=== PATIENT | male | born 1935 | race Caucasian/White ===

== ENCOUNTER 2016-10-15 17:16 | Observation (INO) | payer MEDICARE, BC ==
[~2016-10-15] VITALS: Ht 172.7 cm; Wt 96.4 kg
--- NOTE | ~2016-10-15 | HEMODYNAMI ---
PATIENT:DENTON ZUÑIGA MEDICAL RECORD: [id number] : 31 LOCATION:[facility] [address] [id number] ADMISSION DATE: 10/15/16 Generatedon:10/16/201610:19 Patient name: DENTON ZUÑIGA Patient #: [id number] SSN: : 1935 Date of study: 10/16/2016 Page: Of Hemodynamic Procedure Report Patient Data Patient Demographics Procedure consent was obtained First Name: DENTON Gender: Male Last Name: YOGESH : 1935 [facility] Initial: E Age: 80 year(s) Patient #: [id number] Race: Additional ID: [id number] Contact details Address: [address] [place] [address] [facility] State: [place] City: [place] Zip code: [address] Past Medical History History of disease Date Diagnosis Comments CAD Allergies Allergen Reaction Date Comments Reported Penicillins 08/16/2014 Penicillins 10/16/2016 Admission Admission Data Admission Date: 10/15/2016 Admission Time: 20:42 Arrival Date: 10/15/2016 Arrival Time: 20:42 Admit Source: Other Insurance Payor: Medicare Room #: D.[id number] Lab Results Lab Result Date: 10/15/2016 Lab Result Time: 0:00 Biochemistry Name Units Result Min Max Creatinine mg/dl 0.8 --(-*--)-- 0.6 1.3 CBC Name Units Result Min Max Hemoglobin g/dl 13.3 -*(----)-- 13.5 17.5 Procedure Procedure Types Cath Procedure Diagnostic Procedure LHC LHC w/Coronaries Miscellaneous Procedures Moderate Sedation up to 30 minutes Procedure Description Procedure Date Procedure Date: 10/16/2016 Procedure Start Time: 10:01 Procedure End Time: 10:18 Procedure Staff Name Function Duong Ashley MD Performing Physician Emma Ruiz RT Scrub Maryam Kim RN Nurse Kelsie Alba RT Monitor Procedure Data Cath Procedure Fluoroscopy Diagnostic fluoroscopy Total fluoroscopy Time: 2.6 time: 2.6 min min Diagnostic fluoroscopy Total fluoroscopy dose: dose: 273.78 mGy 273.78 mGy Contrast Material Contrast Material Type Amount (ml) Isovue 300 66 Entry Location Entry Primary Successful Side Size Upsize Upsize Entry Closure Succes sful Closure Location (Fr) 1 (Fr) 2 (Fr) Remarks Device Remarks Femoral Right 5 Fr vein Femoral Right 5 Fr Exoseal artery Estimated blood loss: 5 ml Diagnostic catheters Device Type Used For End Catheter Placement Cordis 5Fr JL 4.0 Left Coronary Catheter (MP) Angiography Cordis 5Fr 3DRC Catheter Right Coronary (MP) Angiography Cordis 5Fr Pigtail LV Angiography Catheter (MP) Procedure Complications No complications Procedure Medications Medication Administration Route Dosage Oxygen NC 2 l/min Heparin Flush Bag added to field 2 bags (1000units/500ml NS) Lidocaine 2% added to field 20 Versed I.V. 1 mg Fentanyl I.V. 50 mcg Versed I.V. 1 mg Fentanyl I.V. 50 mcg Fentanyl I.V. 50 mcg Hemodynamics Rest HGB: 13.3 (g/dl) Heart Rate: 86 (bpm) Pressure Samples Time Site Value (mmHg) Purpose Heart Use Rate(bpm) 10:11 LV 143/-7,14 EDP 83 10:12 AO 135/66(97) Pullback 78 10:12 LV 150/-5,21 Pullback 78 Gradients Valve Time Site 1 Site 2 Mean SEP/DFP Peak To Heart Use (mmHg) (sec/min) Peak Rate (mmHg) (bpm) Aortic 10:12 LV AO 17 21 15 78 150/-5,21 135/66(97) Calculations Valve P-P Mean Valve Index Valve Source Name Gradient Area Flow (cm2) Aortic 15 17 15 17 Snapshots Pre Cath Intra NCS Post Cath Vital Signs Time Heart Resp SPO2 NIBP (mmHg) Rhythm Pain Sedation Rate (ipm) (%) Status Level (bpm) 9:28:58 83 19 98 148/87(112) NSR 0 (11) 10(A) , No pain 9:33:20 78 18 98 138/83(109) NSR 0 (11) 10(A) , No pain 9:38:17 80 21 98 134/86(105) NSR 0 (11) 10(A) , No pain 9:42:25 83 20 97 130/86(96) NSR 0 (11) 10(A) , No pain 9:47:20 77 17 97 118/74(97) NSR 0 (11) 10(A) , No pain 9:51:34 71 14 95 126/69(104) NSR 0 (11) 10(A) , No pain 9:55:50 72 15 97 128/67(91) NSR 0 (11) 10(A) , No pain 10:00:40 70 22 98 116/84(95) NSR 0 (11) 10(A) , No pain 10:04:52 90 16 96 124/81(108) NSR 0 (11) 9(A) , No pain 10:09:10 76 15 96 137/78(112) NSR 0 (11) 9(A) , No pain 10:13:39 75 14 96 120/55(98) NSR 0 (11) 9(A) , No pain 10:17:24 81 15 95 133/64(111) NSR 0 (11) 9(A) , No pain Medications Time Medication Route Dose Verified Delivered Reason Notes Effec tiveness by by 9:26:43 Oxygen NC 2 Duong Maryam Per l/min Dion Kim RN physician 9:36:59 Heparin Flush added 2 Duong Duong used for Bag to bags Dion Ashley MD procedure (1000units/500ml field NS) 9:37:08 Lidocaine 2% added 20ml Duong Duong used for to vial Dion Ashley MD procedure field 9:50:48 Versed I.V. 1 mg Duong Maryam for Dion Kim RN sedation 9:50:57 Fentanyl I.V. 50 Duong Maryam for lacey Kim RN sedation 9:56:44 Versed I.V. 1 mg Duong Maryam for Dion Kim RN sedation 9:56:50 Fentanyl I.V. 50 Duong Maryam for lacey Kim RN sedation 10:01:52 Fentanyl I.V. 50 Duong Maryam for lacey Kim RN sedation Procedure Log Time Note 9:00:36 Maryam Judy ELIAS sent for patient. Start room use. 9:16:42 Time tracking: Regular hours 9:16:47 Plan of Care:Hemodynamics will remain stable., Cardiac rhythm will remain stable., Comfort level will be maintained., Respiratory function will remain adequate., Patient/ family verbilizes understanding of procedure., Procedure tolerated without complication., Recovers from procedure without complications.. 9:17:55 Diagnostic Cath Status : Elective 9:18:12 Arrival Date: 10/15/2016 8:42:00 PM 9:18:18 Admit Source: Other 9:18:21 Insurance Payor : Medicare 9:25:17 Patient received from PCU to [facility] 3 Alert and oriented. Tansferred to table in Supine position. 9:26:43 Oxygen 2 l/min NC was given by Maryam Kim RN; Per physician; 9:27:38 IV Extension Set opened to sterile field. 9:27:51 Vital chart was started 9:30:27 Warm blankets applied, and sandy hugger turned on for patient comfort. 9:30:28 Correct patient and procedure confirmed by team. 9:30:30 Signed procedure consent form obtained from patient. 9:30:30 ECG and BP/O2 sat monitors applied to patient. 9:30:31 Full Disclosure recording started 9:30:35 Rhythm: sinus rhythm 9:32:05 H&P Date Dictated: 10/16/2016 Within 30 days and on chart.. 9:32:07 Pre-procedure instructions explained to patient. 9:32:07 Pre-op teaching completed and patient verbalized understanding. 9:32:08 Family in patients room. 9:32:14 Patient NPO since Midnight. 9:32:20 Patient allergic to Penicillins 9:32:23 Is the patient allergic to Iodine/contrast media? No. 9:32:25 Is patient on blood thinner?No 9:32:52 Patient diabetic? Yes. 9:32:53 If diabetic: On Metformin? Yes 9:32:55 If on Metformin: Last Dose? 10/15/2016 9:32:59 Previous problem with sedation/anesthesia? No ? 9:32:59 Snore? Yes 9:33:00 Sleep apnea? No 9:33:02 Deviated septum? No 9:33:03 Opens mouth fully? Yes 9:33:03 Sticks out tongue? Yes 9:33:08 Airway obstruction? Yes Astma 9:33:13 Dentures? Yes In 9:33:17 Pre procedure: right dorsailis pedis pulse 2+ Normal; easily identifiable; not easily obliterated 9:33:19 Patient pain scale 0/10 ?. 9:33:27 IV patent on arrival in left forearm with 0.9% NaCl at O. 9:34:06 Lab Result : Creatinine 0.8 mg/dl 9:34:06 Lab Result : Hemoglobin 13.3 g/dl 9:34:10 Lab results completed and on chart. 9:34:13 Right groin area was prepped with chlora-prep and draped in sterile fashion 9:34:15 Alarms reviewed by R. N. 9:34:15 Sharps counted by scrub and verified by R.N. 9:34:18 Use device set Femoral Dx 9:34:18 Acist Syringe opened to sterile field. 9:34:19 Bag Decanter opened to sterile field. 9:34:19 Medline Cath Pack opened to sterile field. 9:34:20 Terumo 5Fr Leland Sheath opened to sterile field. 9:34:20 [facility] [place] 260cm J .035 wire opened to sterile field. 9:34:21 Acist Hand Control opened to sterile field. 9:34:22 Acist Manifold opened to sterile field. 9:34:23 Diagnostic Infinity 5Fr Multipack catheter opened to sterile field. 9:34:24 Tegaderm 4 x 4 opened to sterile field. 9:36:59 Heparin Flush Bag (1000units/500ml NS) 2 bags added to field was given by Duong Ashley MD; used for procedure; 9:37:08 Lidocaine 2% 20ml vial added to field was given by Duong Ashley MD; used for procedure; 9:37:18 Baseline sample Acquired. 9:42:41 Zero performed for pressure channel P1 9:43:22 Zero performed for pressure channel P1 9:46:51 Final Timeout: patient, procedure, and site verified with staff and physician. All members of the team are in agreement. 9:46:57 Right groin site verified by team. 9:47:00 Physical assessment completed. ASA score P 2 - A patient with mild systemic disease as per Duong Ashley MD. 9:47:05 Sedation plan: IV Moderate Sedation Versed, Fentanyl 9:50:48 Versed 1 mg I.V. was given by Maryam Kim RN; for sedation; 9:50:57 Fentanyl 50 mcg I.V. was given by Maryam Kim RN; for sedation; 9:56:44 Versed 1 mg I.V. was given by Maryam Kim RN; for sedation; 9:56:50 Fentanyl 50 mcg I.V. was given by Maryam Kim RN; for sedation; 10:01:12 Procedure started. 10:01:52 Fentanyl 50 mcg I.V. was given by Maryam Kim RN; for sedation; 10::56 Local anesthetic to right femoral artery with Lidocaine 2% by Duong Ashley MD.INITIAL ACCESS ONLY 10:02:37 A 5 Fr sheath was inserted into the Right Femoral vein 10:03:29 Terumo 5Fr Leland Sheath opened to sterile field. 10:04:44 A 5 Fr sheath was inserted into the Right Femoral artery 10:05:13 A Cordis 5Fr JL 4.0 Catheter (MP) was advanced over the wire and used for Left Coronary Angiography. 10:08:38 Catheter removed. 10:08:43 A Cordis 5Fr 3DRC Catheter (MP) was advanced over the wire and used for Right Coronary Angiography. 10:09:49 Procedure type changed to Cath procedure, Diagnostic procedure, LHC, LHC w/Coronaries, Miscellaneous Procedures, Moderate Sedation up to 30 minutes 10:09:55 Catheter removed. 10:10:00 A Cordis 5Fr Pigtail Catheter (MP) was advanced over the wire and used for LV Angiography. 10:11:41 LV gram done using SHAHID 10:11:42 LV hemodynamics recorded. 10:11:45 Injector settings: Ml/sec: 10, Volume: 20, 10:11:53 EF : 55 % 10:12:19 Catheter removed. 10:13:36 Cordis 5Fr Exoseal opened to sterile field. 10:13:43 Sheath removed intact; hemostasis achieved with Exoseal to the Right Femoral artery. 10:13:45 Procedure ended.(Physican Out) 10:14:00 Fluoroscopy time 02.60 minutes. 10:14:07 Fluoroscopy dose: 273.78 mGy 10:14:07 Flurop Dose total: 273.78 10:14:28 Contrast amount:Isovue 300 66ml. 10:14:32 Sharps counted by scrub and verified by R.N. 10:14:34 Insertion/operative site no bleeding no hematoma. 10:14:37 Post-op/insertion site Right Femoral artery dressed using a 4 x 4 and Tegaderm. 10:14:41 Post right femoral artery:stable, clean and dry 10:14:43 Post Procedure Pulses reassessed and unchanged 10:14:49 Post-procedure physical assessment completed. ASA score P 2 - A patient with mild systemic disease as per Duong Ashley MD. 10:14:52 Post procedure rhythm: unchanged. 10:14:54 Estimated blood loss: 5 ml 10:14:56 Post procedure instruction explained to patient.Patient verbalizes understanding. 10:14:57 Patient needs reinforcement of post procedure teaching. 10:15:04 Procedure Complication : No complications 10:15:22 See physician's report for complete and final results. 10:16:37 Procedure and supply charges have been captured, reviewed, submitted and are correct. 10:18:24 Vital chart was stopped 10:18:26 Report given to PCU. 10:18:29 Patient transfered to PCU with Bed. 10:18:36 Procedure ended. 10:18:36 Full Disclosure recording stopped 10:18:40 End room use (Document Last) Device Usage Item Name Manufacture Quantity Catalog Hospital Part Current Minimal Lo t# / Number Charge Number Stock Stock Serial# Code IV [place] 1 52885-91 818938 87238 370299 5 Extension Set Acist Acist 1 30619 735619 172848 041344 20 Syringe [employer] Inc Bag Microtek 1 2002S 420916 67999 252462 5 Dec[employer]it[employer] Medline Cardinal 1 [id number] 241451 35858 653530 5 Cath Pack Health Terumo 5Fr Terumo 2 [id number] 998195 581527 975973 [address] [facility] P[place] 1 760607 649032 059394 239772 30 260cm J .035 wire Acist Hand Acist 1 51743 898109 940103 351522 5 Control [employer] Inc Acist Acist 1 59100 193105 297705 889805 5 Manifold Medical Systems Inc Diagnostic Cardinal 1 [id number] 016194 19677 522403 30 Histogenicsity Health 5Fr Multipack catheter Tegaderm 4 3M 1 1626W 190017 416147 659494 5 x 4 Cordis 5Fr Cardinal 1 925108 5 JL 4.0 Health Catheter (MP) Cordis 5Fr Cardinal 1 758871 5 3DRC Health Catheter (MP) Cordis 5Fr Cardinal 1 177632 5 Pigtail Health Catheter (MP) Cordis 5Fr Cardinal 1 EX500 855480 940862 733855 10 [facility] Health Signature Audit [place] Stage Time Signature Unsigned Intra-Procedure 10/16/2016 Kelsie 10:18:52 AM Counts RT(R) Signatures Monitor : Kelsie Signature : Counts RT Date : Time : [address] [place] [address]
[~2016-10-15 17:16] MED LIST: ANTIVERT25 MG PO; ASMANEX0.24 GM INH; BAYER CHEWABLE81 MG PO; BYSTOLIC5 MG PO; CRESTOR40 MG PO; FORADIL12 MCG INH; GLUCOPHAGE500 MG PO; MELLARIL10 MG PO; PLAVIX75 MG PO; PROVENTIL HFA6.7 GM INH; RANEXA500 MG PO; SYMBICORT 16010.2 GM INH; TERBUTALINE SULF5 MG PO; THEOCHRON300 MG; THEOCHRON300 MG PO; VENTOLIN HFA18 GM INH; ZANTAC300 MG PO; ZOCOR5 MG PO; ZOFRAN4 MG PO
[2016-10-15 18:22] LABS: BASOPHILS 0.5 % (0.0-2.0); EOSINOPHILS 1.2 % (0-7); HEMOGLOBIN 13.3 g/dL (13.5-17.5); IMMATURE GRANULOCYTES 0.3 % (0-5); LYMPHOCYTES 28.9 % (15-50); MCH 31.3 pg (26.0-34.0); MCHC 32.4 g/dL (31.0-37.0); MCV 96.5 fL (80.0-100.0); MEAN PLATELET VOLUME 9.8 fL (7.4-10.4); NEUTROPHILS 61.1 % (40-80); PLATELET COUNT 172 10x3/uL (130-400); RBC 4.25 10x6/uL (4.20-6.10); RDW 15.8 % (11.5-14.5); WBC 6.4 10x3/uL (4.8-10.8)
[2016-10-15 18:51] LABS: ALBUMIN 2.9 g/dL (3.4-5.0); ALKALINE PHOSPHATASE 96 U/L (46-116); ALT (SGPT) 22 U/L (10-68); BILIRUBIN - TOTAL 0.49 mg/dL (0.2-1.3); CALC OSMOLALITY 282 mosm/kg (275-300); CALCIUM 8.8 mg/dL (8.5-10.1); CARBON DIOXIDE 26.7 mmol/L (21.0-32.0); CHLORIDE - SERUM 106 mmol/L (98-107); CKMB 0.9 U/L (0.0-3.6); CREATINE KINASE 53 UL (21-232); CREATININE - SERUM 0.8 mg/dL (0.6-1.3); GLUCOSE 107 mg/dL (74-106); SODIUM 142 mmol/L (136-145); UREA NITROGEN 13 mg/dL (7-18); eGFR NON AFRICAN AMERICAN > 90 mL/min (90-120)
[2016-10-15 18:54] LABS: TROPONIN-I < 0.017 ng/mL (0.000-0.060)
[2016-10-15 19:40] LABS: MAGNESIUM - SERUM 1.8 mg/dL (1.8-2.4)
--- NOTE | 2016-10-15 21:13 | NUR ---
REPORT RECEIVED FROM KANDY ELIAS.
--- NOTE | 2016-10-15 21:31 | NUR ---
ARRIVED TO FLOOR VIA WHEELCHAIR, ACCOMPANIED BY HOSPITAL STAFF. ORIENTED TO UNIT AND PLACED ON TELEMETRY. CALL LIGHT IN REACH. WILL CONTINUE TO MONITOR. SEE NURSE ASSESSMENT.
[2016-10-15 21:59] VITALS: BP 117/75; Ht 172.7 cm; Wt 96.4 kg
[2016-10-16] VITALS (7 sets, daily range): BP systolic 108–135; BP diastolic 59–78
--- NOTE | 2016-10-16 00:14 | NUR ---
LYING IN BED WITH EYES CLOSED, CALL LIGHT IN REACH. WILL CONTINUE TO MONITOR.
--- NOTE | 2016-10-16 03:03 | NUR ---
LYING IN BED WITH EYES CLOSED, AT BEDSIDE. CALL LIGHT IN REACH.
--- NOTE | 2016-10-16 06:40 | NUR ---
NO CHANGES FROM PREVIOUS ASSESSMENT, CALL LIGHT IN REACH.
--- NOTE | 2016-10-16 07:30 | NUR ---
RECEIVED PT IN BED AAOX4 RESP UNLABORED DENIES ANY NEEDS OR DISCOMFORT
--- NOTE | 2016-10-16 09:30 | NUR ---
PT TO [employer]ER VIA BED IN STABLE CONDITION
--- NOTE | 2016-10-16 13:35 | NUR ---
PT DISCHARGED HOME LEFT UNIT IN STABLE CONDITION VIA W/C WITH ALL PERSONAL BELONGINGS
--- NOTE | 2016-10-16 13:35 | NUR ---
REVIEWED DISCHARGE INSTRUCTIONS PT STATES UNDERSTANDING COPY GIVEN SALINE LOCK DCD LT HAND WITH IV CATHETER INTACT WITHOUT REDNESS OR EDEMA NOTED AT SITE
--- NOTE | 2016-11-18 08:17 | OP ---
PATIENT NAME: DENTON ZUÑIGA MEDICAL RECORD: [id number] :31 LOCATION:D. D.2116 ADMISSION DATE:10/15/16 SURGEON: CLARE WALKER M.D. DATE OF OPERATION: 10/16/2016 PROCEDURES PERFORMED: 1. Selective coronary angiography. 2. Left heart catheterization with ventriculogram. INDICATION: An 80-year-old gentleman with history of coronary artery disease, who presents with recurrent chest discomfort. EQUIPMENT USED: A 5-Kittitian JL4, Solomon right, pigtail catheter. TECHNIQUE: A 5-Kittitian sheath was inserted in a retrograde fashion in the right common femoral artery. Next, selective coronary angiography was performed in standard 5-Kittitian JL4 and Solomon right. Left heart catheterization was performed using pigtail catheter. CORONARY ANATOMY: 1. Left main: Left main trunk is large in caliber. It gives rise to the LAD and circumflex. There is no obstruction. 2. LAD: This is a moderate caliber vessel extending to the apex. The proximal vessel has been stented. The first diagonal branch has been stent as well. There are mild irregularities noted within the stent, but nothing worse than 20%. The remainder of the vessel was widely patent. 3. Circumflex: This vessel is moderate in caliber. The stents in the mid segment were widely patent. 4. Right coronary artery: This vessel is moderate in caliber and dominant. The proximal mid vessel has been stented. The stents were widely patent. Distal vessel is free of any significant disease. 5. Left ventricle: Left ventricle is normal in size and function. No wall motion abnormalities are seen. Its ejection fraction is 55%. IMPRESSION: 1. Widely patent stents without any evidence of restenosis. 2. Normal left ventricular function. RECOMMENDATIONS: We will continue with medical management. TRANSINT:[id number] Voice Confirmation ID: [id number] DOCUMENT ID: [id number] CLARE WALKER M.D. at 0817 CC: [id number] DICTATION DATE: 10/16/16 1018 FARM APPRAISER: 10/16/16 1354 DIS IN 10/16/16 [id number] [place] [address]
== END 2016-10-16 13:35 | disposition home or self-care (01) ==
LOC: D.ER 17:16 → D.M2 20:42 → OBSVTIME 20:42 → D.M2 10-16 13:35
PROVIDERS: Emergency Medicine; ADMIT Internal Medicine Interventional Cardiology
DX: I25.110 Atherosclerotic heart disease of native coronary artery with unstable angina pectoris (principal); Z95.5 Presence of coronary angioplasty implant and graft; Z87.891 Personal history of nicotine dependence; I10 Essential (primary) hypertension; E78.5 Hyperlipidemia, unspecified; I48.91 Unspecified atrial fibrillation

== ENCOUNTER 2017-03-27 15:48 | Emergency (ER) | payer MEDICARE, BC ==
[2016-10-15 21:59] VITALS: BMI 32.3
[2017-03-27 18:48] LABS: BASOPHILS 0.6 % (0-2); EOSINOPHILS 1.7 % (0-7); HEMATOCRIT 44.6 % (42.0-54.0); HEMOGLOBIN 14.6 g/dL (13.5-17.5); IMMATURE GRANULOCYTES 0.2 % (0-5); LYMPHOCYTES 24.4 % (15-50); MCH 30.7 pg (26.0-34.0); MCHC 32.7 g/dL (31.0-37.0); MCV 93.7 fL (80.0-100.0); MEAN PLATELET VOLUME 9.8 fL (7.4-10.4); MONOCYTES 8.5 % (2-11); NEUTROPHILS 64.6 % (40-80); RBC 4.76 10x6/uL (4.20-6.10); RDW 15.8 % (11.5-14.5)
[2017-03-27 18:50] LABS: PLATELET COUNT 223 10x3/uL (130-400)
[2017-03-27 19:01] LABS: ALBUMIN 3.3 g/dL (3.4-5.0); ALKALINE PHOSPHATASE 112 U/L (46-116); ALT (SGPT) 25 U/L (10-68); BILIRUBIN - TOTAL 0.51 mg/dL (0.2-1.3); CALC OSMOLALITY 280 mosm/kg (275-300); CALCIUM 9.3 mg/dL (8.5-10.1); CARBON DIOXIDE 29.2 mmol/L (21.0-32.0); CHLORIDE - SERUM 105 mmol/L (98-107); GLUCOSE 115 mg/dL (74-106); POTASSIUM - SERUM 3.8 mmol/L (3.5-5.1); PROTEIN - SERUM 7.2 g/dL (6.4-8.2); SODIUM 140 mmol/L (136-145); UREA NITROGEN 15 mg/dL (7-18); eGFR NON AFRICAN AMERICAN 76 mL/min (90-120)
[2017-03-27 19:10] LABS: PRO BNP 346 pg/mL (0-450); TROPONIN-I < 0.017 ng/mL (0.000-0.060)
[2017-03-27 19:38] LABS: APPEARANCE CLEAR (CLEAR); BILIRUBIN NEGATIVE (NEGATIVE); COLOR DK YELLOW (YELLOW); GLUCOSE NEGATIVE (NEGATIVE); KETONE NEGATIVE (NEGATIVE); LEUKOCYTE ESTERASE NEGATIVE (NEGATIVE); NITRITE NEGATIVE (NEGATIVE); PROTEIN NEGATIVE (NEGATIVE); SPECIFIC GRAVITY 1.025 (1.005-1.020); UROBILINOGEN NORMAL (NORMAL)
== END 2017-03-27 20:30 | disposition home or self-care (01) ==
LOC: D.ER 15:48
PROVIDERS: Physician Assistant Medical
DX: J18.9 Pneumonia, unspecified organism (principal); R10.9 Unspecified abdominal pain; R06.00 Dyspnea, unspecified; R06.2 Wheezing; F17.200 Nicotine dependence, unspecified, uncomplicated

== ENCOUNTER 2017-10-03 11:27 | Observation (INO) | payer MEDICARE, BC ==
[~2017-10-03] VITALS: Ht 172.7 cm; Wt 95.2 kg
--- NOTE | ~2017-10-03 | HEMODYNAMI ---
PATIENT:DENTON ZUÑIGA MEDICAL RECORD: [id number] : 31 LOCATION:[address] [id number] ADMISSION DATE: 10/03/17 Generatedon:10/04/201710:28 Patient name: DENTON ZUÑIGA Patient #: [id number] SSN: : 1935 Date of study: 10/04/2017 Page: Of Hemodynamic Procedure Report Patient Data Patient Demographics Procedure consent was obtained First Name: DENTON Gender: Male Last Name: YOGESH : 1935 [facility] Initial: E Age: 81 year(s) Patient #: [id number] Race: Additional ID: [id number] Contact details Address: [address] [place] [address] [employer] State: [place] City: [place] Zip code: [address] Past Medical History History of disease Date Diagnosis Comments CAD Allergies Allergen Reaction Date Comments Reported Penicillins 08/16/2014 Penicillins 10/16/2016 Penicillins 10/04/2017 Admission Admission Data Admission Date: 10/03/2017 Admission Time: 14:07 Room #: D.2122 Lab Results Lab Result Date: 10/04/2017 Lab Result Time: 0:00 Biochemistry Name Units Result Min Max BUN mg/dl 18 --(---*)-- 7 18 Creatinine mg/dl 1 --(--*-)-- 0.6 1.3 CBC Name Units Result Min Max Hemoglobin g/dl 14.8 --(-*--)-- 13.5 17.5 Procedure Procedure Types Cath Procedure Diagnostic Procedure LHC LHC w/Coronaries Procedure Description Procedure Date Procedure Date: 10/04/2017 Procedure Start Time: 10:16 Procedure End Time: 10:28 Procedure Staff Name Function Slim Blackwood MD Performing Physician Candy Voss RT Monitor Jackie Davis RT Scrub Josr Orosco RN Nurse Benjamin Ford RT Rn Telephone Triage Procedure Data Cath Procedure Fluoroscopy Diagnostic fluoroscopy Total fluoroscopy Time: 0 time: 0 min min Diagnostic fluoroscopy Total fluoroscopy dose: 427 dose: 427 mGy mGy Contrast Material Contrast Material Type Amount (ml) Isovue 300 45 Entry Location Entry Primary Successful Side Size Upsize Upsize Entry Closure Succes sful Closure Location (Fr) 1 (Fr) 2 (Fr) Remarks Device Remarks Femoral Right 5 Fr Exoseal artery Estimated blood loss: 5 ml Diagnostic catheters Device Type Used For End Catheter Placement MULTIPACK JL 4.0 5Fr Procedure catheter MULTIPACK 3DRC 5Fr Procedure catheter MULTIPACK Pigtail 5 Fr Procedure catheter Procedure Complications No complications Procedure Medications Medication Administration Route Dosage Oxygen NC 2 l/min Heparin Flush Bag added to field 2 bags (1000units/500ml NS) 0.9% NaCl I.V. 100 ml/hr Fentanyl I.V. 50 mcg Versed I.V. 1 mg Fentanyl I.V. 50 mcg Versed I.V. 1 mg Solumedrol I.V. 125 mg Hemodynamics Rest HGB: 14.8 (g/dl) Heart Rate: 82 (bpm) Pressure Samples Time Site Value (mmHg) Purpose Heart Use Rate(bpm) 10:21 LV 137/7,12 Snapshot 76 10:22 AO 152/84(115) Pullback 76 Gradients Valve Time Site Site 2 Mean SEP/DFP Peak To Heart Use 1 (mmHg) (sec/min) Peak Rate (mmHg) (bpm) Aortic 10:22 LV AO 2 6 76 152/84(115) Calculations Valve P-P Mean Valve Index Valve Source Name Gradient Area Flow (cm2) Aortic 2 2 Snapshots Pre Cath Intra NCS Post Cath Vital Signs Time Heart Resp SPO2 etCO2 NIBP (mmHg) Rhythm Pain Sedation Rate (ipm) (%) (mmHg) Status Level (bpm) 10:12:12 89 16 95 31.4 117/73(93) NSR 0 (11) 10(A) , No pain 10:16:46 91 16 96 16.4 129/89(111) NSR 0 (11) 10(A) , No pain 10:21:27 80 16 94 35.2 136/81(109) NSR 0 (11) 9(A) , No pain 10:24:54 110 16 98 32.2 117/85(103) NSR 0 (11) 9(A) , No pain Medications Time Medication Route Dose Verified Delivered Reason Notes Effec tiveness by by 10:09:24 Oxygen NC 2 Slim Josr Per l/min [facility] David Orosco RN physician 10:09:33 Heparin Flush added 2 Slim Josr used for Bag to bags [facility] David Orosco RN procedure (1000units/500ml field NS) 10:09:41 0.9% NaCl I.V. 100 Slim Josr Per ml/hr [facility] David Orosco RN physician 10:15:43 Fentanyl I.V. 50 Slim Josr for mcg [facility] David Orosco RN sedation 10:15:49 Versed I.V. 1 mg Slim Josr for [facility] David Orosco RN sedation 10:21:01 Fentanyl I.V. 50 Slim Josr for mcg [facility] David Orosco RN sedation 10:21:03 Versed I.V. 1 mg [address]lim Josr for [facility] David Orosco RN sedation 10:23:49 Solumedrol I.V. 125 Slim Josr Per mg [facility] David Orosco RN physician Procedure Log Time Note 9:42:12 Benjamin Ford RT(R) sent for patient. Start room use. 9:52:09 Diagnostic Cath status Elective 9:52:15 Time tracking: Call back 9:52:22 Plan of Care:Hemodynamics will remain stable., Cardiac rhythm will remain stable., Comfort level will be maintained., Respiratory function will remain adequate., Patient/ family verbilizes understanding of procedure., Procedure tolerated without complication., Recovers from procedure without complications.. 9:57:07 Patient received from Pre/Post Procedure Room to [facility] 1 Alert and oriented. Tansferred to table in Supine position. 9:57:09 Warm blankets applied, and sandy hugger turned on for patient comfort. 9:57:11 Correct patient and procedure confirmed by team. 9:57:12 Signed procedure consent form obtained from patient. 9:57:13 ECG and BP/O2 sat monitors applied to patient. 10:05:33 Vital chart was started 10:05:34 Baseline sample Acquired. 10:05:38 Rhythm: sinus rhythm 10:05:40 Full Disclosure recording started 10:06:45 H&P Date Dictated: 10/04/2017 Within 30 days and on chart.. 10:06:46 Pre-procedure instructions explained to patient. 10:06:46 Pre-op teaching completed and patient verbalized understanding. 10:06:49 Family in patients room. 10:06:50 Patient NPO since Midnight. 10:06:58 Patient allergic to Penicillins 10:07:01 Is the patient allergic to Iodine/contrast media? No. 10:07:11 Is patient on blood thinner?No 10:07:16 Patient diabetic? Yes. 10:07:19 If diabetic: On Metformin? Yes 10:07:21 If on Metformin: Last Dose? 10/03/2017 10:07:26 Previous problem with sedation/anesthesia? No ? 10:07:29 Snore? Yes 10:07:32 Sleep apnea? No 10:07:37 Deviated septum? No 10:07:44 Opens mouth fully? Yes 10:07:45 Sticks out tongue? Yes 10:07:58 Airway obstruction? Yes ASTHMA 10:08:02 Dentures? Yes IN TIGHT 10:08:05 Pre procedure: right dorsailis pedis pulse 2+ Normal; easily identifiable; not easily obliterated 10:08:08 Patient pain scale 0/10 ?. 10:08:14 IV patent on arrival in right hand with 0.9% NaCl at [facility]. 10:08:40 Lab Result : Creatinine 1 mg/dl 10:08:40 Lab Result : BUN 18 mg/dl 10:08:40 Lab Result : Hemoglobin 14.8 g/dl 10:08:44 Lab results completed and on chart. 10:08:48 Right groin area was prepped with chlora-prep and draped in sterile fashion 10:08:50 Alarms reviewed by R. N. 10:08:50 Sharps counted by scrub and verified by R.N. 10:09:24 Oxygen 2 l/min NC was administered by Josr Orosco RN; Per physician; 10:09:33 Heparin Flush Bag (1000units/500ml NS) 2 bags added to field was administered by Josr Orosco RN; used for procedure; 10:09:41 0.9% NaCl 100 ml/hr I.V. was administered by Josr Orosco RN; Per physician; 10:10:08 Use device set Femoral Dx 10:10:09 ACIST Syringe (27257) opened to sterile field. 10:10:11 Bag Decanter (2001S) opened to sterile field. 10:10:12 ACIST Hand Control (59088) opened to sterile field. 10:10:13 ACIST Manifold (53657) opened to sterile field. 10:10:14 Tegaderm 4 x 4 (1626W) opened to sterile field. 10:10:16 Medline Cath Pack ([id number]) opened to sterile field. 10:10:16 SHEATH 5FR Whiting (CPM650) opened to sterile field. 10:10:17 DIAGNOSTIC WIRE .035 260cm J wire (759121) opened to sterile field. 10:10:19 PERCUTANEOUS ENTRY 19GA needle opened to sterile field. 10:10:20 DIAGNOSTIC Multipack 5Fr catheter set (NY0137) opened to sterile field. 10:11:02 Physician paged 10:14:06 --------ALL STOP TIME OUT------ 10:14:07 Final Timeout: patient, procedure, and site verified with staff and physician. All members of the team are in agreement. 10:14:09 Right groin site verified by team. 10:14:13 Physical assessment completed. ASA score P 2 - A patient with mild systemic disease as per Slim Blackwood MD. 10:14:17 Sedation plan: IV Moderate Sedation Medication:Versed, Fentanyl 10:15:43 Fentanyl 50 mcg I.V. was administered by Josr Orosco RN; for sedation; 10:15:49 Versed 1 mg I.V. was administered by Josr Orosco RN; for sedation; 10:16:19 Procedure started. 10:16:31 Local anesthetic to right femoral artery with Lidocaine 2% by Slim Blackwood MD.INITIAL ACCESS ONLY 10:17:27 A 5 Fr sheath was inserted into the Right Femoral artery 10:17:32 A MULTIPACK JL 4.0 5Fr catheter was advanced over the wire and used for Procedure. 10:18:28 LCA angiography performed. 10:18:57 Catheter removed. 10:18:59 Zero performed for pressure channel P1 10:19:17 A MULTIPACK 3DRC 5Fr catheter was advanced over the wire and used for Procedure. 10:20:14 RCA angiography performed. 10:20:15 Catheter removed. 10:20:20 A MULTIPACK Pigtail 5 Fr catheter was advanced over the wire and used for Procedure. 10:20:47 LV gram done using SHAHID 10:20:52 Injector settings: Ml/sec: 10, Volume: 20, 10::01 Fentanyl 50 mcg I.V. was administered by Josr Orosco RN; for sedation; 10::03 Versed 1 mg I.V. was administered by Josr Orosco RN; for sedation; 10:22:00 LV hemodynamics recorded. 10:22:15 EF : 55 % 10:22:17 Catheter removed. 10::19 EXOSEAL 5Fr (EX500) opened to sterile field. 10::28 Sheath removed intact; hemostasis achieved with Exoseal to the Right Femoral artery. 10::39 Procedure ended.(Physican Out) 10::56 Fluoroscopy time 00.00 minutes. 10:23:00 Fluoroscopy dose: 427 mGy 10::00 Flurop Dose total: 427 10:: Contrast amount:Isovue 300 45ml. 10:23:05 Sharps counted by scrub and verified by R.N. 10:23:09 Post-op/insertion site Right Femoral artery dressed using a 4 x 4 and Tegaderm. 10:23:13 Post right femoral artery:stable, soft, clean and dry 10:23:16 Post procedure: right dorsailis pedis pulse 2+ Normal; easily identifiable; not easily obliterated. 10:23:19 Post-procedure physical assessment completed. ASA score P 2 - A patient with mild systemic disease as per Slim Blackwood MD. 10:23:27 Post procedure rhythm: unchanged. 10:23:49 Solumedrol 125 mg I.V. was administered by Josr Orosco RN; Per physician; 10::52 Estimated blood loss: 5 ml 10::53 Post procedure instruction explained to patient.Patient verbalizes understanding. 10:23:54 Patient needs reinforcement of post procedure teaching. 10:24:26 Procedure and supply charges have been captured, reviewed, submitted and are correct. 10:24:29 Procedure Complication : No complications 10::58 Vital chart was stopped 10::59 See physician's report for complete and final results. 10:28:00 Report given to PCU. 10:28:04 Patient transfered to PCU with Bed. 10:28:05 Procedure ended. 10:28:05 Full Disclosure recording stopped 10:28:10 End room use (Document Last) Device Usage Item Name Manufacture Quantity Catalog Hospital Part Current Minimal Lot# / Number Charge Number Stock Stock Serial# Code ACIST Acist 1 36392 [id number] 819070 160319 20 Syringe Medical (48762) Systems Inc Bag Decanter Microtek 1 2001S 530881 69021 469390 5 (2001S) Medical Inc. ACIST Hand Acist 1 05061 265740 566652 297503 5 Control Medical (64487) Systems Inc ACIST Acist 1 73190 844132 097559 037476 5 Manifold Medical (49663) Systems Inc Tegaderm 4 x 3M 1 1626W 518286 653925 491556 5 4 (1626W) Medline Cath Cardinal 1 [id number] 989120 26959 860905 5 Pack Health ([id number]) SHEATH 5FR Terumo 1 RSN679 611478 019306 050201 40 Whiting (DPW635) DIAGNOSTIC [facility] [place] 1 380555 171883 470814 658325 30 WIRE .035 260cm J wire (385376) PERCUTANEOUS Cook Medical 1 Q17400 725239 855700 5 ENTRY 19GA needle DIAGNOSTIC Cardinal 1 XF9619 659486 66003 511568 30 Multipack Health 5Fr catheter set (FX4070) MULTIPACK JL Cardinal 1 667854 5 4.0 5Fr Health catheter MULTIPACK Cardinal 1 221632 5 3DRC 5Fr Health catheter MULTIPACK Cardinal 1 259077 5 Pigtail 5 Fr Health catheter EXOSEAL 5Fr Cardinal 1 EX500 053663 855240 145171 10 (EX500) Health Signature Audit [place] Stage Time Signature Unsigned Intra-Procedure 10/04/2017 Candy Voss 10:28:35 AM RT(R) Signatures Monitor : Candy Voss Signature : RT Date : Time : [address] [address]
--- NOTE | ~2017-10-03 | CN ---
PATIENT NAME:DENTON ZUÑIGA MEDICAL RECORD: [id number] : 31 LOCATION:[facility] D.2122 ADMIT DATE: 10/03/17 ACCOUNT: [id number] CONSULTING PHYSICIAN: NANCI PAUL MD REFERRING PHYSICIAN: NANCI PAUL MD DATE OF CONSULTATION: 10/04/2017 HISTORY OF PRESENT ILLNESS: An 81-year-old gentleman with history of coronary artery disease, status post intervention, admitted with chest pain, typical and atypical features. He has been trying to exercise on a somewhat regular basis, has intermittent angina which usually responds promptly with nitroglycerin, this required 2 nitroglycerin to respond. He is admitted with angina. PAST MEDICAL HISTORY: Includes; 1. History of coronary artery disease as described above. 2. Dyslipidemia. 3. Diabetes mellitus. 4. Obstructive pulmonary disease. ALLERGIES: PENICILLIN. MEDICATIONS: Typically include Proventil q.4, Brethine 5 mg every day, Ranexa 500 b.i.d., Crestor 20 every day, Thorazine 10 b.i.d., Zantac 300 every day, Glucophage 500 b.i.d., and theophylline 300 q.12. ALLERGIES: PENICILLIN. SOCIAL HISTORY: , lives here in [place]. He is nonsmoker. His reports he does not exercise regularly. He reports he stays quite active. PHYSICAL EXAMINATION: GENERAL: Pleasant gentleman in no acute distress. VITAL SIGNS: Blood pressure 144/92, pulse 103 and regular. HEENT: Normocephalic and atraumatic. NECK: No JVD or bruit. HEART: Regular. LUNGS: Voss clear. ABDOMEN: Soft, nontender. EXTREMITIES: Pulse 2+. There is no edema. DIAGNOSTIC DATA: ECG without acute change. IMPRESSION: Accelerated angina. PLAN: Plan for angiography and intervention based on above. TRANSINT:[id number] Voice Confirmation ID: [id number] DOCUMENT ID: [id number] CONSULT REPORT [id number] DENTON ZUÑIGA NANCI PAUL MD CC: [id number] DICTATION DATE: 10/04/17906 TIMERS INSPECTOR: 10/04/17 1232 DIS IN 10/04/17 [place] [id number] [place] [address]
--- NOTE | ~2017-10-03 | OP ---
PATIENT NAME: DENTON ZUÑIGA MEDICAL RECORD: [id number] :31 LOCATION:D.M2 D.2 ADMISSION DATE:10/03/17 SURGEON: NANCI PAUL MD DATE OF OPERATION: 10/04/2017 PROCEDURE: Left heart catheterization, selective coronary angiography, right femoral approach. CATHETERS: A 5-Polish sheath, 5/4 left and right Rudy, 5/4 pig. The procedure was well tolerated. The patient returned to the muniz. Sheath removed. ExoSeal device placed. FINDINGS: Left ventriculography in 30-degree SHAHID view: Normal wall motion. Normal systolic function. CORONARY ANATOMY. LEFT MAIN: Left main is free of disease. LAD: Diagonal both and area of previous stenting widely patent with no progression of [place] disease. CIRCUMFLEX: Previously stent widely patent. No progression of [place] disease. RIGHT CORONARY ARTERY: Dominant artery, gives rise to PDA. Free of disease. IMPRESSION: No evidence of restenosis. No evidence of progression of [place] disease. Normal LV function. TRANSINT:[id number] Voice Confirmation ID: [id number] DOCUMENT ID: [id number] NANCI PAUL MD CC: [id number] DICTATION DATE: 10/04/17 1028 DOG OBEDIENCE INSTRUCTOR: 10/04/17 1353 DIS IN 10/04/17 [facility] [address] [id number]
[~2017-10-03 11:27] MED LIST changes: +ANTIVERT12.5 MG PO
[2017-10-03 12:12] LABS: BASOPHILS 0.4 % (0-2); EOSINOPHILS 0.8 % (0-7); HEMATOCRIT 45.3 % (42.0-54.0); HEMOGLOBIN 14.8 g/dL (13.5-17.5); IMMATURE GRANULOCYTES 0.3 % (0-5); LYMPHOCYTES 20.9 % (15-50); MCH 30.3 pg (26.0-34.0); MCHC 32.7 g/dL (31.0-37.0); MCV 92.8 fL (80.0-100.0); MEAN PLATELET VOLUME 10.1 fL (7.4-10.4); MONOCYTES 7.9 % (2-11); NEUTROPHILS 69.7 % (40-80); PLATELET COUNT 230 10x3/uL (130-400); RBC 4.88 10x6/uL (4.20-6.10); RDW 15.2 % (11.5-14.5); WBC 9.7 10x3/uL (4.8-10.8)
[2017-10-03 12:21] LABS: ALBUMIN 2.9 g/dL (3.4-5.0); ALKALINE PHOSPHATASE 116 U/L (46-116); ALT (SGPT) 19 U/L (10-68); BILIRUBIN - TOTAL 0.79 mg/dL (0.2-1.3); CALC OSMOLALITY 276 mosm/kg (275-300); CARBON DIOXIDE 23.9 mmol/L (21.0-32.0); CHLORIDE - SERUM 104 mmol/L (98-107); GLUCOSE 117 mg/dL (74-106); POTASSIUM - SERUM 4.7 mmol/L (3.5-5.1); PROTEIN - SERUM 6.8 g/dL (6.4-8.2); SODIUM 137 mmol/L (136-145); UREA NITROGEN 18 mg/dL (7-18); eGFR NON AFRICAN AMERICAN 76 mL/min (90-120)
[2017-10-03 12:33] LABS: CKMB 1.5 U/L (0.0-3.6); CREATINE KINASE 64 UL (21-232)
[2017-10-03 12:35] LABS: TROPONIN-I < 0.017 ng/mL (0.000-0.060)
[2017-10-03] MEDS ORDERED: SYMBICORT 80-10.2 GM INH (15:05)
[2017-10-03] MEDS ORDERED: THORAZINE10 MG PO (15:07)
[2017-10-03 15:23] VITALS: BP 117/73; Ht 172.7 cm; Wt 95.2 kg
[2017-10-03 15:37] VITALS: BP 120/69
[2017-10-03 19:00] VITALS: BP 121/79
[2017-10-03 19:03] LABS: CKMB 1.2 U/L (0.0-3.6); CREATINE KINASE 37 UL (21-232); TROPONIN-I < 0.017 ng/mL (0.000-0.060)
[2017-10-04 01:03] LABS: CKMB 1.3 U/L (0.0-3.6); CREATINE KINASE 34 UL (21-232); TROPONIN-I < 0.017 ng/mL (0.000-0.060)
[2017-10-04 04:00] VITALS: BP 144/92
[2017-10-04 04:46] LABS: CREATINE KINASE 38 UL (21-232)
[2017-10-04 04:47] LABS: TROPONIN-I < 0.017 ng/mL (0.000-0.060)
== END 2017-10-04 13:52 | disposition home or self-care (01) ==
LOC: D.ER 11:27 → OBSVTIME 14:07 → D.M2 14:07
PROVIDERS: Emergency Medicine
DX: I25.10 Atherosclerotic heart disease of native coronary artery without angina pectoris (principal); E78.5 Hyperlipidemia, unspecified; E11.9 Type 2 diabetes mellitus without complications

== ENCOUNTER 2018-04-13 23:10 | Observation (INO) | payer MEDICARE, BC ==
[~2018-04-13] VITALS: Ht 172.7 cm; Wt 91.8 kg
--- NOTE | ~2018-04-13 | OP ---
PATIENT NAME: DENTON ZUÑIGA MEDICAL RECORD: [id number] :31 LOCATION:[facility] ADMISSION DATE:04/14/18 SURGEON: LUNA ESCOBAR MD DATE OF OPERATION: 04/14/2018 PROCEDURES: 1. PTCA, LAD. 2. PTCA, LAD diagonal. 3. Left heart catheterization. 4. Selective coronary angiography. 5. Left ventriculogram. INDICATION: Angina and coronary artery disease. PROCEDURE PERFORMED: After informed consent was obtained and after a detailed description of risks, benefits as well as alternative therapies, the patient elected to proceed with angiogram and angioplasty. The right femoral area was prepped and draped in normal sterile fashion. Right femoral artery was cannulated via modified Seldinger technique with placement of 6-Ecuadorean sheath. All catheters exchanged through this sheath. FINDINGS: The left ventriculogram was performed in standard 30-degree SHAHID view, reveals good cardiac wall motion throughout all segments. Overall ejection fraction estimated 60%. SELECTIVE CORONARY ANGIOGRAPHY: 1. Left main is with no significant angiographic disease. 2. Left anterior descending has previously placed stents at the LAD and diagonal. There is 80% in-stent restenosis of both of these. 3. The left circumflex has mild irregularities, no flow-limiting stenosis. 4. Right coronary artery has moderate irregularities, but no flow-limiting stenosis. Previously placed stents are widely patent. PTCA: High pressure PTCA was made of the LAD and diagonal. The LAD with a 4.0 balloon. The diagonal with a 3.0 balloon. Result was 0% residual stenosis. OVERALL IMPRESSION: Successful percutaneous transluminal coronary angioplasty for in-stent restenosis throughout the left anterior descending and diagonal going from 80% initial stenosis on both vessels to 0% residual. TRANSINT:[id number] Voice Confirmation ID: [id number] DOCUMENT ID: [id number] LUNA ESCOBAR MD at 1752 CC: [id number] DICTATION DATE: 04/14/18 1307 SHEET METAL WORKER APPRENTICE: 04/14/18 1318 DIS IN 04/14/18 [facility] [address] [id number]
--- NOTE | ~2018-04-13 | HP ---
PATIENT: DENTON COSTELLO MEDICAL RECORD: [id number] ACCOUNT: [id number] LOCATION:[address] : 31 ADMISSION DATE: 04/14/18 HISTORY AND PHYSICAL EXAMINATION DIAGNOSES: 1. Unstable angina. 2. Coronary artery disease. 3. Previous multivessel percutaneous transluminal coronary angioplasty stent. 4. Chronic obstructive pulmonary disease. 5. Hypertension. 6. Hyperlipidemia. HISTORY OF PRESENT ILLNESS: Mr. Costello presents with increasing episodes of chest pain for the last 3 days. He had multiple episodes of chest pain yesterday requiring multiple sublingual nitroglycerin. He is still having some mild pain this morning. His troponin is normal. His EKG is with nonspecific ST-T abnormalities. PHYSICAL EXAMINATION: GENERAL APPEARANCE: Well-nourished, well-developed, appears stated age. Level of distress, comfortable. PSYCHIATRIC: Mental status, alert, normal affect. Orientation, oriented to time, place and person. EYES: Lids and conjunctiva, noninjected. No discharge, no pallor. ENT: Lips, teeth, gums, normal dentition. Oropharynx, no cyanosis, no pallor. NECK: Carotid arteries, bilateral normal upstroke, no bruits, no thrills. JUGULAR VEINS: No jugular venous pressure or distention. CERVICAL LYMPH NODES: Nontender, nonenlarged. THYROID: Not enlarged. Nontender. No nodules. LUNGS: Respiratory effort, unlabored. CHEST: Normal curvature. No thoracic deformity. No chest wall tenderness. Percussion, resonant. Auscultation, clear. No wheezes, no rales, no rhonchi. CARDIOVASCULAR: Precordial exam, nondisplaced. No heaves or pericardial thrills. Rate and rhythm, regular. Heart sounds, normal S1, normal S2. No S3, no gallop, no rub. Systolic murmur, not heard. Diastolic murmur, not heard. EXTREMITIES: No cyanosis, no edema. Peripheral pulses, full and equal in all extremities, except as noted. No bruits appreciated. ABDOMEN: Soft, nondistended. Normal aorta. No bruit. Nontender. No masses. Liver, nontender, no hepatomegaly. Spleen, nontender, no splenomegaly. MUSCULOSKELETAL: No joint tenderness. No joint swelling. No erythema. NEUROLOGICAL: Normal gait, normal strength, normal tone. SKIN: Warm and dry. OVERALL IMPRESSION: Unstable angina with continued pain in a patient with multivessel PTCA stent in the past. We will proceed with coronary angiography as high likelihood of recurrent hemodynamically significant disease. Further care depends upon the findings of the angiography. TRANSINT:[id number] Voice Confirmation ID: [id number] DOCUMENT ID: [id number] HISTORY AND PHYSICAL [id number] DENTON COSTELLO, LUNA SÁNCHEZ at 1307 CC: [id number] DICTATION DATE: 04/14/18922 FIELD COIL WINDER: 04/14/18 0937 ADM IN [facility] [address] [id number]
--- NOTE | ~2018-04-13 | HEMODYNAMI ---
PATIENT:DENTON ZUÑIGA MEDICAL RECORD: [id number] : 31 LOCATION:[facility] [address] [place] CL[facility]# [id number] ADMISSION DATE: 04/14/18 Generatedon:04/14/201813:09 Patient name: DENTON ZUÑIGA Patient #: [id number] SSN: : 1935 Date of study: 04/14/2018 Page: Of Hemodynamic Procedure Report Patient Data Patient Demographics Procedure consent was obtained First Name: DENTON Gender: Male Last Name: YOGESH : 1935 [facility] Initial: E Age: 82 year(s) Patient #: [id number] Race: Additional ID: [id number] Contact details Address: [address] [place] [address] [facility] State: [place] City: [place] Zip code: [address] Past Medical History History of disease Date Diagnosis Comments CAD Allergies Allergen Reaction Date Comments Reported Penicillins 08/16/2014 Penicillins 10/16/2016 Penicillins 10/04/2017 Penicillins 04/14/2018 Admission Admission Data Admission Date: 04/14/2018 Admission Time: 0:36 Room #: D.2117 Lab Results Lab Result Date: 04/14/2018 Lab Result Time: 0:00 Biochemistry Name Units Result Min Max BUN mg/dl 18 --(---*)-- 7 18 Creatinine mg/dl 0.9 --(-*--)-- 0.6 1.3 CBC Name Units Result Min Max Hemoglobin g/dl 13.2 -*(----)-- 13.5 17.5 Procedure Procedure Types Cath Procedure Diagnostic Procedure LHC LHC w/Coronaries PCI Procedure PTCA PTCA Initial PTCA Additional Procedure Description Procedure Date Procedure Date: 04/14/2018 Procedure Start Time: 12:46 Procedure End Time: 13:07 Procedure Staff Name Function Chin Carter MD Performing Physician Abe Hitchcock RT Monitor Candy Voss RT Scrub Luis Armando Vallejo RN Nurse Procedure Data Cath Procedure Fluoroscopy Diagnostic fluoroscopy Total fluoroscopy Time: 4.9 time: 4.9 min min Diagnostic fluoroscopy Total fluoroscopy dose: 665 dose: 665 mGy mGy Contrast Material Contrast Material Type Amount (ml) Isovue 300 56 Entry Location Entry Primary Successful Side Size Upsize Upsize Entry Closure Succes sful Closure Location (Fr) 1 (Fr) 2 (Fr) Remarks Device Remarks Femoral Right 5 Fr 6 Fr Exoseal artery Short Estimated blood loss: 10 ml Diagnostic catheters Device Type Used For End Catheter Placement MULTIPACK Pigtail 5 Fr Procedure catheter MULTIPACK JL 4.0 5Fr Procedure catheter MULTIPACK 3DRC 5Fr Procedure catheter Procedure Complications No complications Procedure Medications Medication Administration Route Dosage 0.9% NaCl I.V. 100 ml/hr Oxygen etCO2 Nasal cannula 2 l/min Heparin Flush Bag added to field 2 bags (1000units/500ml NS) Lidocaine 2% added to field 20 Versed I.V. 1 mg Fentanyl I.V. 50 mcg Versed I.V. 1 mg Fentanyl I.V. 50 mcg Heparin Bolus I.V. 4000 units Hemodynamics Rest HGB: 13.2 (g/dl) Heart Rate: 79 (bpm) Pressure Samples Time Site Value (mmHg) Purpose Heart Use Rate(bpm) 12:53 LV 121/17,59 Snapshot 87 Snapshots Pre Cath Intra NCS Post Cath Vital Signs Time Heart Resp SPO2 etCO2 NIBP (mmHg) Rhythm Pain Sedation Rate (ipm) (%) (mmHg) Status Level (bpm) 12:35:54 77 17 0 131/76(98) NSR 0 (11) 10(A) , No pain 12:40:37 82 18 97 0 136/61(106) NSR 0 (11) 10(A) , No pain 12:45:14 80 20 98 15.7 115/74(98) NSR 0 (11) 10(A) , No pain 12:49:52 89 15 96 31.5 125/66(92) NSR 0 (11) 10(A) , No pain 12:54:31 78 16 98 31.5 136/82(110) NSR 0 (11) 10(A) , No pain 12:59:11 82 14 98 32.3 144/84(108) NSR 0 (11) 10(A) , No pain 13:03:52 96 15 98 34.5 122/67(89) NSR 0 (11) 10(A) , No pain Medications Time Medication Route Dose Verified Delivered Reason Notes Effectiveness by by 12:44:58 0.9% NaCl I.V. 100 Luis Armando Luis Armando Per physician ml/hr Yoni Vallejo RN RN 12:45:08 Oxygen etCO2 2 Luis Armando Luis Armando Per physician Nasal l/min Yoni Vallejo cannula RN RN 12:45:18 Heparin Flush added 2 Luis Armando Luis Armando used for Bag to bags Yoni Vallejo procedure (1000units/500ml field RN RN NS) 12:45:43 Lidocaine 2% added 20ml Luis Armando Luis Armando for local to vial Lorarpita Vallejo anesthetic field RN RN 12:47:31 Versed I.V. 1 mg Luis Armando Luis Armando for sedation Yoni Vallejo RN RN 12:47:39 Fentanyl I.V. 50 Luis Armando Luis Armando for sedation mcg Yoni Vallejo RN RN 12:50:51 Versed I.V. 1 mg Luis Armando Luis Armando for sedation Yoni Vallejo RN RN 12:50:57 Fentanyl I.V. 50 Luis Armando Luis Armando for sedation mcg Yoni Vallejo RN RN 12:58:02 Heparin Bolus I.V. 4000 Luis Armando Luis Armando for units Yoni Vallejo anticoagulation RN glass carrier Log Time Note 12:10:49 Time tracking: Regular hours (M-F 7:00 - 5:00) 12:10:53 Plan of Care:Hemodynamics will remain stable., Cardiac rhythm will remain stable., Comfort level will be maintained., Respiratory function will remain adequate., Patient/ family verbilizes understanding of procedure., Procedure tolerated without complication., Recovers from procedure without complications.. 12:10:58 Signed procedure consent form obtained from patient. 12:11:12 Patient allergic to Penicillins 12:12:05 Lab Result : Creatinine 0.9 mg/dl 12:12:05 Lab Result : BUN 18 mg/dl 12:12:05 Lab Result : Hemoglobin 13.2 g/dl 12:13:50 Abe Hitchcock RT(R) sent for patient. Start room use. 12:22:07 Patient received from Med II to CCL 1 Alert and oriented. Tansferred to table in Supine position. 12:22:08 Warm blankets applied, and sandy hugger turned on for patient comfort. 12:22:09 Correct patient and procedure confirmed by team. 12:22:10 ECG and BP/O2 sat monitors applied to patient. 12:22:11 Pre-procedure instructions explained to patient. 12:22:12 Pre-op teaching completed and patient verbalized understanding. 12:22:13 Family in patients room. 12:22:14 Patient NPO since Midnight. 12:35:06 Vital chart was started 12:35:07 Baseline sample Acquired. 12:35:10 Rhythm: sinus rhythm 12:35:12 Full Disclosure recording started 12:35:18 H&P Date Dictated: 04/14/2018 Within 30 days and on chart.. 12:35:20 Is the patient allergic to Iodine/contrast media? No. 12:35:21 Is patient on blood thinner?Yes 12:35:23 ACC The patient was administered the following blood thiners within the last 24 hours: ACCPlavix 12:35:25 Patient diabetic? Yes. 12:35:25 If diabetic: On Metformin? Yes 12:35:27 If on Metformin: Last Dose? 04/13/2018 12:35:31 Previous problem with sedation/anesthesia? No ? 12:35:32 Snore? Yes 12:35:33 Sleep apnea? No 12:35:34 Deviated septum? No 12:35:35 Opens mouth fully? Yes 12:35:36 Sticks out tongue? Yes 12:35:37 Airway obstruction? No ? 12:35:40 Dentures? Yes in tight 12:35:43 Pre procedure: right dorsailis pedis pulse 2+ Normal; easily identifiable; not easily obliterated 12:35:47 IV patent on arrival in left hand with 0.9% NaCl at [facility]. 12:35:49 Lab results completed and on chart. 12:35:51 Right groin area was prepped with chlora-prep and draped in sterile fashion 12:35:52 Alarms reviewed by R. N. 12:35:52 Sharps counted by scrub and verified by R.N. 12:35:56 Use device set Femoral Dx 12:35:57 ACIST Syringe (17406) opened to sterile field. 12:35:57 Bag Decanter (2002S) opened to sterile field. 12:35:58 Medline Cath Pack ([id number]) opened to sterile field. 12:35:58 DIAGNOSTIC WIRE .035 260cm J wire (079442) opened to sterile field. 12:35:59 ACIST Hand Control (88513) opened to sterile field. 12:35:59 ACIST Manifold (28574) opened to sterile field. 12:36:00 Tegaderm 4 x 4 (1626W) opened to sterile field. 12:36:02 SHEATH Prelude 5Fr 0.035 (DPR-1E-49-035) opened to sterile field. 12:36:03 DIAGNOSTIC Multipack 5Fr catheter set ([id number]) opened to sterile field. 12:43:00 Zero performed for pressure channel P1 12:43:27 Physician paged 12:44:58 0.9% NaCl 100 ml/hr I.V. was administered by Luis Armando Vallejo RN; Per physician; 12:45:08 Oxygen 2 l/min etCO2 Nasal cannula was administered by Luis Armando Vallejo RN; Per physician; 12:45:18 Heparin Flush Bag (1000units/500ml NS) 2 bags added to field was administered by Luis Armando Vallejo RN; used for procedure; 12:45:43 Lidocaine 2% 20ml vial added to field was administered by Luis Armando Vallejo RN; for local anesthetic; 12:46:41 Physician arrived 12:46:42 --------ALL STOP TIME OUT------ 12:46:42 Final Timeout: patient, procedure, and site verified with staff and physician. All members of the team are in agreement. 12:46:43 Right groin site verified by team. 12:46:46 Physical assessment completed. ASA score P 2 - A patient with mild systemic disease as per Chin Carter MD. 12:46:49 Sedation plan: IV Moderate Sedation Medication:Versed, Fentanyl 12:46:53 Procedure started. 12:46:55 Local anesthetic to right femoral artery with Lidocaine 2% by Chin Carter MD.INITIAL ACCESS ONLY 12:47:31 Versed 1 mg I.V. was administered by Luis Armando Vallejo RN; for sedation; 12:47:39 Fentanyl 50 mcg I.V. was administered by Luis Armando Vallejo RN; for sedation; 12:50:20 AMPLATZ Super Stiff 75cm wire ([id number]) opened to sterile field. 12:50:21 SHEATH Prelude 5Fr 0.035 (DGY-1B-03-035) opened to sterile field. 12:50:51 Versed 1 mg I.V. was administered by Luis Armando Vallejo RN; for sedation; 12:50:57 Fentanyl 50 mcg I.V. was administered by Luis Armando Vallejo RN; for sedation; 12:52:21 A 5 Fr sheath was inserted into the Right Femoral artery 12:52:36 A MULTIPACK Pigtail 5 Fr catheter was advanced over the wire and used for Procedure. 12:52:47 LV gram done using SHAHID 12:52:49 Injector settings: Ml/sec: 10, Volume: 20, 12:53:19 EF : 60 % 12:53:20 Catheter exchanged over wire. 12:53:26 A MULTIPACK JL 4.0 5Fr catheter was advanced over the wire and used for Procedure. 12:53:56 LCA angiography performed. 12:54:18 SHEATH Prelude 6Fr 0.035 (PQD-4Y-30-035) opened to sterile field. 12:54:22 INFLATOR Merit BasixCompak (BQ9022) opened to sterile field. 12:54:27 CHOICE PT Extra Support 182cm wire ([id number]) opened to sterile field. 12:54:33 GUIDE 6FR XBLAD 4.0 catheter ([id number]) opened to sterile field. 12:55:45 Catheter exchanged over wire. 12:55:50 A MULTIPACK 3DRC 5Fr catheter was advanced over the wire and used for Procedure. 12:55:53 RCA angiography performed. 12:55:55 Catheter removed. 12:56:02 Sheath upsized to a 6 Fr Short. 12:57:35 6 Fr xblad 4 guide catheter was inserted over the wire 12:57:49 choice pt es wire advanced. 12:58:02 Heparin Bolus 4000 units I.V. was administered by Luis Armando Vallejo RN; for anticoagulation; 12:58:04 Wire advanced across lesion. 12:59:07 Inflate balloon Inflation number: 1 A NC EUPHORA 4.0 x 15 balloon ([id number]) was prepped and advanced across the Prox LAD, then inflated to 23 TAMMY for 0:10 (min:sec). 12:59:12 Inflation number: 2 The NC EUPHORA 4.0 x 15 balloon ([id number]) was reinflated across the Prox LAD, to 23 TAMMY for 0:10 (min:sec). 12:59:39 Inflation number: 3 The NC EUPHORA 4.0 x 15 balloon ([id number]) was reinflated across the Prox LAD, to 23 TAMMY for 0:10 (min:sec). 12:59:47 Balloon removed over the wire. 13:00:17 Wire removed. 13:01:25 choice pt es wire advanced. 13:01:27 Wire advanced across lesion. 13:02:48 Inflate balloon Inflation number: 1 A EUPHORA 3.0 x 10 balloon ([id number]) was prepped and advanced across the 1st Diag, then inflated to 17 TAMMY for 0:10 (min:sec). 13:03:13 Wire redirected to lad. 13:03:18 Inflation number: 4 The EUPHORA 3.0 x 10 balloon ([id number]) was reinflated across the Prox LAD, to 17 TAMMY for 0:10 (min:sec). 13:03:28 Balloon removed over the wire. 13:03:29 Wire removed. 13:03:29 Guide catheter removed. 13:03:35 EXOSEAL 6Fr (EX600) opened to sterile field. 13:03:43 Sheath removed intact; hemostasis achieved with Exoseal to the Right Femoral artery. 13:03:50 Procedure ended.(Physican Out) 13:04:03 Fluoroscopy time 04.90 minutes. 13:04:08 Fluoroscopy dose: 665 mGy 13:04:08 Flurop Dose total: 665 13:04:11 Contrast amount:Isovue 300 56ml. 13:04:12 Sharps counted by scrub and verified by R.N. 13:04:14 Insertion/operative site no bleeding no hematoma. 13:04:16 Post-op/insertion site Right Femoral artery dressed using a 4 x 4 and Tegaderm. 13:04:20 Post right femoral artery:stable, soft, clean and dry 13:04:21 Post Procedure Pulses reassessed and unchanged 13:04:24 Post-procedure physical assessment completed. ASA score P 2 - A patient with mild systemic disease as per Chin Carter MD. 13:04:26 Post procedure rhythm: unchanged. 13:05:16 Estimated blood loss: 10 ml 13:05:17 Post procedure instruction explained to patient.Patient verbalizes understanding. 13:05:18 Patient needs reinforcement of post procedure teaching. 13:05:51 Procedure type changed to Cath procedure, Diagnostic procedure, LHC, LHC w/Coronaries, PCI procedure, PTCA, PTCA Initial, PTCA Additional 13:06:12 Procedure and supply charges have been captured, reviewed, submitted and are correct. 13:06:15 Procedure Complication : No complications 13:06:17 Vital chart was stopped 13:06:17 See physician's report for complete and final results. 13:07:40 Report given to Pre/Post Procedure Room. 13:07:47 Patient transfered to Pre/Post Procedure Room with Stretcher. 13:07:58 Procedure ended. 13:07:58 Full Disclosure recording stopped 13:08:03 End room use (Document Last) Intervention Summary Intervention Notes Time ActionType Lesion and Equipment Action# Pressure Duration Attributes Used 12:59:07 Inflate Prox LAD NC EUPHORA 1 23 00:10 balloon 4.0 x 15 balloon ([id number]) 12:59:12 Reinflate Prox LAD NC EUPHORA 2 23 00:10 balloon 4.0 x 15 balloon ([id number]) 12:59:39 Reinflate Prox LAD NC EUPHORA 3 23 00:10 balloon 4.0 x 15 balloon ([id number]) 13:02:48 Inflate 1st Diag EUPHORA 3.0 1 17 00:10 balloon x 10 balloon ([id number]) 13:03:18 Reinflate Prox LAD EUPHORA 3.0 4 17 00:10 balloon x 10 balloon ([id number]) Device Usage Item Name Manufacture Quantity Catalog Number Hospital Part Current Minimal Lot# / Charge Number Stock Stock Serial# Code ACIST Syringe Acist 1 83116 115283 464134 [id number] 20 (84225) [employer] Inc Bag Decanter Microtek 1 2001S 154828 46172 847641 5 () Medical Inc. Medline Cath Cardinal 1 [id number] 058851 16335 882128 5 [facility] ([id number]) DIAGNOSTIC WIRE [place] 1 506692 091963 656791 315222 30 .035 260cm J wire (042588) ACIST Hand Acist 1 17812 209085 767832 433381 5 Control (91305) [employer] Inc ACIST Manifold Acist 1 71933 970110 462813 886339 5 (95147) Medical Systems Inc Tegaderm 4 x 4 3M 1 1626W 138801 508830 274946 5 (1626W) SHEATH Prelude Merit 2 [id number]-7E-08-035 054243 663619 959265 5 5Fr 0.035 Medical (YOG-2S-16-035) DIAGNOSTIC Cardinal 1 II3819 193801 05170 202593 30 Multipack 5Fr Health catheter set (IR8826) AMPLATZ Super [place] 1 [id number] 858775 783966 497797 5 Stiff 75cm wire Scientific ([id number]) MULTIPACK Cardinal 1 213355 5 Pigtail 5 Fr Health catheter MULTIPACK JL Cardinal 1 [id number] 5 4.0 5Fr Health catheter SHEATH Prelude Merit 1 FDU-9P-30-35 225996 8656404 304251 5 6Fr 0.035 Medical (XVF-6S-57-035) INFLATOR Merit Merit 1 EA6439 391263 676167 504503 15 BasixCompak Medical (VQ9349) CHOICE PT Extra [place] 1 [id number] 715883 977776 172481 5 Support 182cm Scientific wire ([id number]) GUIDE 6FR XBLAD Cardinal 1 [id number] 361940 244315 950291 3 4.0 catheter Health ([id number]) MULTIPACK 3DRC Cardinal 1 005687 5 5Fr catheter Health [place] EUPHORA 4.0 Medtronic 1 [id number] 838995 105377 797725 1 [id number] x 15 balloon ([id number]) EUPHORA 3.0 x Medtronic 1 [id number] 820941 442431 050795 5 [id number] 10 balloon ([id number]) EXOSEAL 6Fr Cardinal 1 EX600 248838 375054 526999 10 (EX600) Health Signature Audit [place] Stage Time Signature Unsigned Intra-Procedure 04/14/2018 Abe Hitchcock 1:09:13 PM RT(R) Signatures Monitor : Abe Hitchcock RT Signature : Date : Time : [facility] [address] [place] [address]
[~2018-04-13 23:10] MED LIST changes: +SYMBICORT 80-10.2 GM INH; +THORAZINE10 MG PO
[2018-04-13 23:43] LABS: HEMATOCRIT 40.3 % (42.0-54.0); HEMOGLOBIN 13.2 g/dL (13.5-17.5); LYMPHOCYTES 22.5 % (15-50); MCHC 32.8 g/dL (31.0-37.0); MCV 91.6 fL (80.0-100.0); MEAN PLATELET VOLUME 9.3 fL (7.4-10.4); NEUTROPHILS 69.1 % (40-80); PLATELET COUNT 209 10x3/uL (130-400); RDW 14.7 % (11.5-14.5); WBC 7.7 10x3/uL (4.8-10.8)
[2018-04-13 23:52] LABS: APTT 32.9 SECONDS (22.8-39.4); INR 1.02 (0.85-1.17)
[2018-04-13 23:57] LABS: ALBUMIN 2.7 g/dL (3.4-5.0); ALKALINE PHOSPHATASE 116 U/L (46-116); ALT (SGPT) 24 U/L (10-68); CALC OSMOLALITY 279 mosm/kg (275-300); CALCIUM 8.8 mg/dL (8.5-10.1); CARBON DIOXIDE 28.7 mmol/L (21.0-32.0); CHLORIDE - SERUM 105 mmol/L (98-107); CREATININE - SERUM 0.9 mg/dL (0.6-1.3); GLUCOSE 100 mg/dL (74-106); POTASSIUM - SERUM 3.9 mmol/L (3.5-5.1); PROTEIN - SERUM 6.5 g/dL (6.4-8.2); SODIUM 139 mmol/L (136-145); UREA NITROGEN 18 mg/dL (7-18); eGFR NON AFRICAN AMERICAN 85 mL/min (90-120)
[2018-04-14 00:09] LABS: CKMB 1.1 U/L (0.0-3.6); CREATINE KINASE 23 UL (21-232); PRO BNP 313 pg/mL (0-450); TROPONIN-I < 0.017 ng/mL (0.000-0.060)
[2018-04-14 03:50] VITALS: BP 144/82; Ht 172.7 cm; Wt 91.8 kg
[2018-04-14 05:28] VITALS: BP 144/82
[2018-04-14 09:12] VITALS: BP 115/56
[2018-04-14 12:08] VITALS: BP 148/89
[2018-04-14] MEDS ORDERED: PLAVIX75 MG PO (13:29)
== END 2018-04-14 17:15 | disposition home or self-care (01) ==
LOC: D.ER 23:10 → D.M2 04-14 00:36 → OBSVTIME 04-14 00:36 → D.M2 04-14 00:36 → D.CLR 04-14 13:32
PROVIDERS: Emergency Medicine
DX: I25.110 Atherosclerotic heart disease of native coronary artery with unstable angina pectoris (principal); J44.9 Chronic obstructive pulmonary disease, unspecified; I10 Essential (primary) hypertension; E78.5 Hyperlipidemia, unspecified; Z01.812 Encounter for preprocedural laboratory examination

== ENCOUNTER 2018-06-22 07:44 | Outpatient (CLI) | payer MEDICARE, BC ==
[~2018-06-22] VITALS: Ht 172.7 cm; Wt 95.0 kg
--- NOTE | ~2018-06-22 | OP ---
PATIENT NAME: DENTON ZUÑIGA MEDICAL RECORD: [id number] :31 LOCATION:D.CAT ADMISSION DATE: SURGEON: LUNA ESCOBAR MD DATE OF OPERATION: 06/22/2018 PROCEDURES: 1. PTCA stent RCA. 2. Intravascular ultrasound. 3. Left heart catheterization. 4. Selective coronary angiography. 5. Left ventriculogram. INDICATION: Angina and coronary artery disease. PROCEDURE IN DETAIL: After informed consent was obtained and after a detailed description of the risks, benefits as well as alternative therapies, the patient elected to proceed with angiogram and angioplasty. The right femoral area was prepped and draped in normal sterile fashion. Right femoral artery was cannulated via modified Seldinger technique with placement of 6-Romanian sheath. FINDINGS: Left ventriculogram was performed in standard 30-degree SHAHID view, reveals preserved cardiac wall motion, ejection fraction estimated at 55%. SELECTIVE CORONARY ANGIOGRAPHY: 1. Left main is with no significant angiographic disease. 2. Left anterior descending has previously placed stents. There is up to 80% in-stent restenosis in the mid vessel. 3. The left circumflex has mild irregularities, but no flow-limiting stenosis. 4. The right coronary artery has multiple previously placed stents. Intravascular ultrasound reveals that there are at least 2 areas of greater than 70% stenosis. PTCA STENT OF THE RCA: Stents used were 4.0 x 22 and 4.0 x 12 both Dinosaur stents. Result was 0% residual stenosis. OVERALL IMPRESSION: Successful percutaneous transluminal coronary angioplasty stent of the left anterior descending going from 70% initial stenosis times 2 to 0% residual. PLAN: PTCA stent of the LAD in the near future. TRANSINT:[id number] Voice Confirmation ID: [id number] DOCUMENT ID: [id number] LUNA ESCOBAR MD at 1914 CC: [id number] DICTATION DATE: 06/22/18 1026 RAND SEWER: 06/22/18 1239 [facility] CLI 06/23/18 [place] [id number] [place] [address]
--- NOTE | ~2018-06-22 | OP ---
PATIENT NAME: DENTON ZUÑIGA MEDICAL RECORD: [id number] :33 LOCATION:D.CAT ADMISSION DATE: SURGEON: LUNA ESCOBAR MD DATE OF OPERATION: 06/23/2018 PROCEDURES: 1. PTCA, LAD. 2. Selective coronary angiography. INDICATION: Unstable angina and coronary artery disease. PROCEDURE IN DETAIL: After informed consent was obtained and after a detailed description of risks, benefits as well as alternative therapies, the patient elected to proceed with angiogram and angioplasty. The right femoral area was prepped and draped in normal sterile fashion. Right femoral artery was cannulated via modified Seldinger technique with placement of 6-Italian sheath. All catheters exchanged through this sheath. FINDINGS: The left anterior descending has previously placed stents. There is 80% plus in-stent restenosis. This was addressed with a 4.0 high pressure balloon, inflations were made up to 23 atmospheres. Result was 0% residual stenosis. OVERALL IMPRESSION: Successful high pressure percutaneous transluminal coronary angioplasty for in-stent restenosis of the left anterior descending going from 80% initial stenosis to 0% residual. TRANSINT:[id number] Voice Confirmation ID: [id number] DOCUMENT ID: [id number] LUNA ESCOBAR MD at 2854 CC: [id number] DICTATION DATE: 06/23/18 1058 DIVE SUPERVISOR: 06/23/18 1110 [facility] CLI 06/23/18 [facility] [address] [place] [address]
--- NOTE | ~2018-06-22 | HEMODYNAMI ---
PATIENT:DENTON ZUÑIGA MEDICAL RECORD: [id number] : 31 [id number] ADMISSION DATE: 06/22/18 Generatedon:06/23/201811:00 Patient name: DENTON ZUÑIGA Patient #: [id number] SSN: : 1935 Date of study: 06/23/2018 Page: Of Hemodynamic Procedure Report Patient Data Patient Demographics Procedure consent was obtained First Name: DENTON Gender: Male Last Name: YOGESH : 1935 [facility] Initial: E Age: 82 year(s) Patient #: [id number] Race: Additional ID: [id number] Contact details [address]: [address] [place] [address] [employer] State: [place] City: [place] Zip code: [address] Past Medical History History of disease Date Diagnosis Comments CAD Allergies Allergen Reaction Date Comments Reported Penicillins 08/16/2014 Penicillins 10/16/2016 Penicillins 10/04/2017 Penicillins 04/14/2018 Other allergy 06/22/2018 PCN Admission Admission Data Admission Date: 06/22/2018 Admission Time: 7:44 Admit Source: Other Room #: D.2116 Weight (lbs.): 209.44 Weight (kg.): 95 Lab Results Lab Result Date: 06/22/2018 Lab Result Time: 8:29 Biochemistry Name Units Result Min Max BUN mg/dl 13 --(--*-)-- 7 18 Creatinine mg/dl 1 --(--*-)-- 0.6 1.3 CBC Name Units Result Min Max Hematocrit % 43.2 --(*---)-- 42 54 Hemoglobin g/dl 14.2 --(*---)-- 13.5 17.5 Procedure Procedure Types Cath Procedure PCI Procedure PTCA PTCA Initial Procedure Description Procedure Date Procedure Date: 06/23/2018 Procedure Start Time: 10:43 Procedure End Time: 10:57 Procedure Staff Name Function Chin Carter MD Performing Physician Benjamin Ford RT Monitor Candy Voss RT Scrub Josr Orosco RN Nurse Procedure Data Cath Procedure Fluoroscopy Diagnostic fluoroscopy Total fluoroscopy Time: 2.1 time: 2.1 min min Diagnostic fluoroscopy Total fluoroscopy dose: 136 dose: 136 mGy mGy Contrast Material Contrast Material Type Amount (ml) Isovue 300 25 Entry Location Entry Primary Successful Side Size Upsize Upsize Entry Closure Succes sful Closure Location (Fr) 1 (Fr) 2 (Fr) Remarks Device Remarks Femoral Left 6 Fr Exoseal artery Short Estimated blood loss: 10 ml Procedure Complications No complications Procedure Medications Medication Administration Route Dosage Oxygen etCO2 Nasal cannula 2 l/min Heparin Flush Bag added to field 2 bags (1000units/500ml NS) 0.9% NaCl I.V. 100 ml/hr Fentanyl I.V. 50 mcg Versed I.V. 1 mg Fentanyl I.V. 50 mcg Versed I.V. 1 mg Heparin Bolus I.V. 4000 units Hemodynamics Rest HGB: 14.2 (g/dl) Heart Rate: 84 (bpm) Pressure Samples Time Site Value (mmHg) Purpose Heart Use Rate(bpm) 10:52 AO 128/72(98) Snapshot 90 Snapshots Pre Cath Intra NCS Post Cath Vital Signs Time Heart Resp SPO2 etCO2 NIBP (mmHg) Rhythm Pain Sedation Rate (ipm) (%) (mmHg) Status Level (bpm) 10:22:51 89 18 97 0 134/83(117) NSR 0 (11) 10(A) , No pain 10:27:07 69 19 98 27.9 136/71(110) NSR 0 (11) 10(A) , No pain 10:31:25 66 18 98 30.9 120/73(102) NSR 0 (11) 10(A) , No pain 10:36:20 66 17 98 9 117/77(91) NSR 0 (11) 10(A) , No pain 10:40:34 70 17 90 33.2 122/71(98) NSR 0 (11) 9(A) , No pain 10:44:50 69 17 96 47.6 131/78(105) NSR 0 (11) 9(A) , No pain 10:49:04 77 17 96 29.5 145/99(114) NSR 0 (11) 9(A) , No pain 10:53:26 77 16 98 40 138/85(107) NSR 0 (11) 9(A) , No pain 10:57:46 85 17 97 31.7 134/76(113) NSR 0 (11) 9(A) , No pain Medications Time Medication Route Dose Verified Delivered Reason Notes Effectiveness by by 10:25:13 Oxygen etCO2 2 Chin Ovalles Per physician Nasal l/min Emma Orosco RN cannula 10:25:23 Heparin Flush added 2 Chin Ovalles used for Bag to bags Emma Orosco RN procedure (1000units/500ml field NS) 10:25:31 0.9% NaCl I.V. 100 Chin Katey Per physician ml/hr Emma Orosco RN 10:34:31 Fentanyl I.V. 50 Chin Katey for sedation mcg Emma Orosco RN 10:34:38 Versed I.V. 1 mg Chin Katey for sedation Emma Orosco RN 10:39:21 Fentanyl I.V. 50 Chin Ovalles for sedation mcg Emma Orosco RN 10:39:26 Versed I.V. 1 mg Chin Katey for sedation Emma Orosco RN 10:49:38 Heparin Bolus I.V. 4000 Chin Katey for units Emma Orosco RN anticoagulation Procedure Log Time Note 9:21:09 Patient Weight : 209.44 lbs 9:21:21 Time tracking: Regular hours (M-F 7:00 - 5:00) 9:21:24 Plan of Care:Hemodynamics will remain stable., Cardiac rhythm will remain stable., Comfort level will be maintained., Respiratory function will remain adequate., Patient/ family verbilizes understanding of procedure., Procedure tolerated without complication., Recovers from procedure without complications.. 9:21:26 Signed procedure consent form obtained from patient. 9:21:27 Diagnostic Cath status Elective 9:21:43 H&P Date Dictated: 06/22/2018 Within 30 days and on chart.. 9:24:46 Is patient on blood thinner?Yes 9:24:50 ACC The patient was administered the following blood thiners within the last 24 hours: ACCPlavix 9:50:24 Josr Orosco RN sent for patient. Start room use. 10:14:53 Patient received from PCU to CCL 3 Alert and oriented. Tansferred to table in Supine position. 10::54 Warm blankets applied, and sandy hugger turned on for patient comfort. 10::54 Correct patient and procedure confirmed by team. 10::55 ECG and BP/O2 sat monitors applied to patient. 10:21:45 Vital chart was started 10:21:47 Baseline sample Acquired. 10::51 Rhythm: sinus rhythm 10::52 Full Disclosure recording started 10::53 Pre-procedure instructions explained to patient. 10::53 Pre-op teaching completed and patient verbalized understanding. 10::58 Family in patients room. 10:22:01 Patient NPO since Midnight. 10::25 Is the patient allergic to Iodine/contrast media? No. 10:23:01 Patient diabetic? Yes. 10:23:02 If diabetic: On Metformin? Yes 10:23:05 If on Metformin: Last Dose? 06/21/2018 10:23:07 Previous problem with sedation/anesthesia? No ? 10:23:08 Snore? Yes 10:23:09 Sleep apnea? No 10:23:10 Deviated septum? No 10:23:10 Opens mouth fully? Yes 10:23:13 Sticks out tongue? Yes 10:25:13 Oxygen 2 l/min etCO2 Nasal cannula was administered by Josr Orosco RN; Per physician; 10:25:23 Heparin Flush Bag (1000units/500ml NS) 2 bags added to field was administered by Josr Orosco RN; used for procedure; 10:25:24 Airway obstruction? Yes Asthma 10:25:30 Dentures? Yes IN 10:25:31 0.9% NaCl 100 ml/hr I.V. was administered by Josr Orosco RN; Per physician; 10:25:34 Pre procedure: left dorsailis pedis pulse 1+ Palpable, but thready & weak; easily obliterated 10:25:36 Patient pain scale 0/10 ?. 10:25:40 IV patent on arrival in left forearm with 0.9% NaCl at O. 10:25:42 Lab results completed and on chart. 10:25:59 Left groin area was prepped with chlora-prep and draped in sterile fashion 10:26:00 Alarms reviewed by R. N. 10:26:01 Sharps counted by scrub and verified by R.N. 10:26:07 Use device set Radial Dx or PCI 10:26:09 Use device set TAUTH PCI 10:26:13 ACIST Syringe (03822) opened to sterile field. 10:26:13 Medline Cath Pack ([id number]) opened to sterile field. 10:26:14 Bag Decanter (2002S) opened to sterile field. 10:26:15 ACIST Hand Control (95368) opened to sterile field. 10:26:16 ACIST Manifold (53532) opened to sterile field. 10:26:16 Tegaderm 4 x 4 (1626W) opened to sterile field. 10:26:18 DIAGNOSTIC WIRE .035 260cm J wire (044943) opened to sterile field. 10:26:26 CHOICE PT Extra Support 182cm wire ([id number]) opened to sterile field. 10:26:31 SHEATH Prelude 6Fr 0.035 (HPS-2S-92-035) opened to sterile field. 10:26:41 INFLATOR Merit BasixCompak (DN2799) opened to sterile field. 10:30:00 Zero performed for pressure channel P1 10:34:31 Fentanyl 50 mcg I.V. was administered by Josr Orosco RN; for sedation; 10:34:38 Versed 1 mg I.V. was administered by Josr Orosco RN; for sedation; 10:35:36 --------ALL STOP TIME OUT------ 10:35:39 Final Timeout: patient, procedure, and site verified with staff and physician. All members of the team are in agreement. 10:35:49 Left groin site verified by team. 10:35:53 Physical assessment completed. ASA score P 2 - A patient with mild systemic disease as per Chin Carter MD. 10:35:56 Sedation plan: IV Moderate Sedation Medication:Versed, Fentanyl 10:39:21 Fentanyl 50 mcg I.V. was administered by Josr Orosco RN; for sedation; 10:39:26 Versed 1 mg I.V. was administered by Josr Orosco RN; for sedation; 10:43:42 GUIDE 6FR XBLAD 4.0 SH catheter ([id number]) opened to sterile field. 10:43:50 Procedure started. 10:43:54 Local anesthetic to left femerol artery with Lidocaine 2% by Chin Carter MD.INITIAL ACCESS ONLY 10:48:09 A 6 Fr Short sheath was inserted into the Left Femoral artery 10:48:26 6 Fr XBLAD 4 SH guide catheter was inserted over the wire 10:49:38 Heparin Bolus 4000 units I.V. was administered by Josr Orosco RN; for anticoagulation; 10:50:31 CPTXS wire advanced. 10:50:37 Wire advanced across lesion. 10:52:17 Inflate balloon Inflation number: 1 A NC EUPHORA 4.0 x 12 balloon ([id number]) was prepped and advanced across the Mid LAD, then inflated to 23 TAMMY for 0:10 (min:sec). 10:53:12 Balloon removed over the wire. 10:53:13 Wire removed. 10:53:13 Guide catheter removed. 10:53:17 EXOSEAL 6Fr (EX600) opened to sterile field. 10:53:36 Sheath removed intact; hemostasis achieved with Exoseal to the Left Femoral artery. 10:53:38 Procedure ended.(Physican Out) 10:55:18 Fluoroscopy time 02.10 minutes. 10:55:43 Fluoroscopy dose: 136 mGy 10:55:43 Flurop Dose total: 136 10:55:55 Contrast amount:Isovue 300 25ml. 10:55:58 Sharps counted by scrub and verified by R.N. 10:55:59 Insertion/operative site no bleeding no hematoma. 10:56:07 Post-op/insertion site Left Femoral artery dressed using a 4 x 4 and Tegaderm. 10:56:09 Post Procedure Pulses reassessed and unchanged 10:56:11 Post-procedure physical assessment completed. ASA score P 2 - A patient with mild systemic disease as per Chin Carter MD. 10:56:14 Post procedure rhythm: unchanged. 10:56:19 Estimated blood loss: 10 ml 10:56:21 Post procedure instruction explained to patient.Patient verbalizes understanding. 10:56:22 Patient needs reinforcement of post procedure teaching. 10:56:30 Procedure type changed to Cath procedure, PCI procedure, PTCA, PTCA Initial 10:56:34 Procedure Complication : No complications 10:56:54 Procedure and supply charges have been captured, reviewed, submitted and are correct. 10:56:55 Vital chart was stopped 10:56:55 See physician's report for complete and final results. 10:56:58 Report given to PCU. 10:57:00 Patient transfered to PCU with Bed. 10:57:02 Procedure ended. 10:57:02 Full Disclosure recording stopped 11:00:25 End room use (Document Last) Intervention Summary Intervention Notes Time ActionType Lesion and Equipment Action# Pressure Duration Attributes Used 10:52:17 Inflate Mid LAD NC EUPHORA 1 23 00:10 balloon 4.0 x 12 balloon ([id number]) Device Usage Item Name Manufacture Quantity Catalog Number Hospital Part Current Minimal Lot# / Charge Number Stock Stock Serial# Code ACIST Syringe Acist 1 12315 630913 754121 344456 20 (86468) [employer] Medline Cath Medline 1 [id number] 871498 14379 924391 5 Pack ([id number]) Bag Decanter Microtek 1 2002S 686993 60385 373318 5 (2001S) Medical Inc. ACIST Hand Acist 1 92183 383682 440842 436849 5 Control (15361) [employer] ACIST Manifold Acist 1 87137 211944 720706 210100 5 (55698) [employer] Tegaderm 4 x 4 3M 1 1626W 423827 100509 007149 5 (1626W) DIAGNOSTIC WIRE [place] 1 324831 414082 174534 579786 30 .035 260cm J wire (050793) CHOICE PT Extra [place] 1 [id number] 135495 560007 822459 5 Support 182cm Scientific wire ([id number]) SHEATH Prelude Merit 1 [id number] 233861 6338538 509620 5 6Fr 0.035 Medical (JOE-5M-55-035) INFLATOR Merit Merit 1 JU9785 503109 968387 536094 15 Basix[employer]imizelyndMacheen Medical (AY2927) GUIDE 6FR XBLAD Cardinal 1 [id number] 450933 7407 079722 3 4.0 [employer] ([id number]) [place] EUPHORA 4.0 Medtronic 1 [id number] 884943 896383 955663 1 [id number] x 12 balloon ([id number]) EXOSEAL 6Fr Cardinal 1 EX600 409266 087688 377299 10 (EX600) Health Signature Audit [place] Stage Time Signature Unsigned Intra-Procedure 06/23/2018 Benjamin Ford 11:00:47 AM RT(R) Signatures Monitor : Benjamin Ford RT Signature : Date : Time : [address] [id number]
--- NOTE | ~2018-06-22 | HEMODYNAMI ---
PATIENT:DENTON ZUÑIGA MEDICAL RECORD: [id number] : 31 LOCATION:D.CAT ADMISSION DATE: 06/22/18 Generatedon:06/22/201810:25 Patient name: DENTON ZUÑIGA Patient #: [id number] SSN: : 1935 Date of study: 06/22/2018 Page: Of Hemodynamic Procedure Report Patient Data Patient Demographics Procedure consent was obtained First Name: DENTON Gender: Male Last Name: YOGESH : 1935 Middle Initial: E Age: 82 year(s) Patient #: [id number] Race: Additional ID: [id number] Contact details Address: [address] [place] [address] [facility] State: [place] City: [place] Zip code: [address] Past Medical History History of disease Date Diagnosis Comments CAD Allergies Allergen Reaction Date Comments Reported Penicillins 08/16/2014 Penicillins 10/16/2016 Penicillins 10/04/2017 Penicillins 04/14/2018 Other allergy 06/22/2018 N Admission Admission Data Admission Date: 06/22/2018 Admission Time: 7:44 Admit Source: Other Weight (lbs.): 209.44 Weight (kg.): 95 Lab Results Lab Result Date: 06/22/2018 Lab Result Time: 8:29 Biochemistry Name Units Result Min Max BUN mg/dl 13 --(--*-)-- 7 18 Creatinine mg/dl 1 --(--*-)-- 0.6 1.3 CBC Name Units Result Min Max Hematocrit % 43.2 --(*---)-- 42 54 Hemoglobin g/dl 14.2 --(*---)-- 13.5 17.5 Procedure Procedure Types Cath Procedure Diagnostic Procedure C [facility] w/Coronaries FFR/IVUS Intra-Coronary IVUS Initial Sedation Charges Moderate Sedation up to 15 minutes PCI Procedure Coronary Stent Coronary Stent Initial Peripheral Cath Diagnostic Procedure [employer] Peripheral Procedures Rondi-Swakave-Oau-Off Procedure Description Procedure Date Procedure Date: 06/22/2018 Procedure Start Time: 10:02 Procedure End Time: 10:23 Procedure Staff Name Function Chin Carter MD Performing Physician Abe Hitchcock RT Monitor Graham Chino RN Nurse Benjamin Ford RT Scrub Josr Orosco RN Offset Press Operator Procedure Data Cath Procedure Fluoroscopy Diagnostic fluoroscopy Total fluoroscopy Time: 6.3 time: 6.3 min min Diagnostic fluoroscopy Total fluoroscopy dose: dose: 1295 mGy 1295 mGy Contrast Material Contrast Material Type Amount (ml) Isovue 300 160 Entry Location Entry Primary Successful Side Size Upsize Upsize Entry Closure Succes sful Closure Location (Fr) 1 (Fr) 2 (Fr) Remarks Device Remarks Femoral Right 5 Fr 6 Fr Exoseal artery Short Estimated blood loss: 10 ml Diagnostic catheters Device Type Used For End Catheter Placement Medtronic Dexterity 5Fr Procedure Pigtail catheter(NO COST SUPPLY) Medtronic Dexterity 5Fr Procedure JL 4.0 catheter (NO COST SUPPLY) Medtronic Dexterity 5Fr Procedure 3DRC catheter (NO COST SUPPLY) Procedure Medications Medication Administration Route Dosage Oxygen etCO2 Nasal cannula 2 l/min Lidocaine 2% added to field 20 0.9% NaCl I.V. 100 ml/hr Versed I.V. 2 mg Fentanyl I.V. 100 mcg Versed I.V. 1 mg Fentanyl I.V. 50 mcg Heparin Bolus I.V. 4000 units Integrilin (Bolus I.V. 8.5 ml 2mg/ml) Plavix P.O. 600 mg Hemodynamics Rest HGB: 14.2 (g/dl) Heart Rate: 73 (bpm) Pressure Samples Time Site Value (mmHg) Purpose Heart Use Rate(bpm) 10:04 LV 141/-14,17 Snapshot 80 Snapshots Pre Cath Intra NCS Post Cath Vital Signs Time Heart Resp SPO2 etCO2 NIBP (mmHg) Rhythm Pain Sedation Rate (ipm) (%) (mmHg) Status Level (bpm) 9:47:46 65 16 96 0 112/70(102) NSR 0 (11) 10(A) , No pain 9:52:35 63 14 98 24.2 130/79(97) NSR 0 (11) 10(A) , No pain 9:56:44 64 16 94 34.7 131/78(88) NSR 0 (11) 10(A) , No pain 10:00:56 69 15 94 21.2 125/74(88) NSR 0 (11) 10(A) , No pain 10:05:06 75 14 97 23.4 137/77(104) NSR 0 (11) 9(A) , No pain 10:09:18 80 20 93 14.3 132/82(103) NSR 0 (11) 9(A) , No pain 10:13:32 78 14 98 18.1 126/70(89) NSR 0 (11) 9(A) , No pain 10:17:46 79 14 99 21.9 111/62(80) NSR 0 (11) 9(A) , No pain 10:21:50 76 16 98 34 130/78(102) NSR 0 (11) 10(A) , No pain Medications Time Medication Route Dose Verified Delivered Reason Notes E ffectiveness by by 9:56:11 Oxygen etCO2 2 Chin Stevenson used for Nasal l/min Emma Chino RN procedure cannula 9:56:18 Lidocaine added 20ml Chin Neely used for 2% to vial Emma Carter MD procedure field 9:56:36 0.9% NaCl I.V. 100 Chin Stevenson Per physician ml/hr Emma Chino RN 10:01:29 Versed I.V. 2 mg Chin Stevenson for sedation Emma Chino RN 10:01:34 Fentanyl I.V. 100 Chin Stevenson for sedation mcg Emma Chino RN 10:06:45 Versed I.V. 1 mg Chin Stevenson for sedation Emma Chino RN 10:06:49 Fentanyl I.V. 50 Chin Stevenson for sedation mcg Emma Chino RN 10:09:54 Heparin I.V. 4000 Chin Stevenson for verified Bolus units Emma Chino RN anticoagulation with dr carter 10:12:16 Integrilin I.V. 8.5 Chin Stevenson for Wasted (Bolus ml Emma Chino RN antiplatelet 1.5 ml 2mg/ml) therapy of vial 10:21:44 Plavix P.O. 600 Chin Stevenson for mg Emma Chino RN antiplatelet therapy Procedure Log Time Note 9:15:10 Informed consent obtained and on chart 9:16:59 Admit Source: Other 9:17:16 Diagnostic Cath status Elective 9:17:18 Time tracking: Regular hours (M-F 7:00 - 5:00) 9:17:21 Plan of Care:Hemodynamics will remain stable., Cardiac rhythm will remain stable., Comfort level will be maintained., Respiratory function will remain adequate., Patient/ family verbilizes understanding of procedure., Procedure tolerated without complication., Recovers from procedure without complications.. 9:17:38 H&P Date Dictated: 06/21/2018 Within 30 days and on chart., H&P Addendum completed by physician on day of procedure. (MUST COMPLETE FOR ALL OUTPATIENTS). 9:19:58 Patient Weight : 209.44 lbs 9:20:31 Lab Result : BUN 13 mg/dl 9::31 Lab Result : Creatinine 1 mg/dl 9:20: Lab Result : Hematocrit 43.2 % 9:20:31 Lab Result : Hemoglobin 14.2 g/dl 9:20:38 Lab results completed and on chart. 9:38:03 Josr Orosco RN sent for patient. Start room use. 9:42:14 Patient received from Pre/Post Procedure Room to CCL 2 Alert and oriented. Tansferred to table in Supine position. 9:42:15 Warm blankets applied, and sandy hugger turned on for patient comfort. 9:42:20 Correct patient and procedure confirmed by team. 9:42:21 ECG and BP/O2 sat monitors applied to patient. 9:42:22 Pre-procedure instructions explained to patient. 9:42:22 Pre-op teaching completed and patient verbalized understanding. 9:42:25 Family in waiting room. 9:42:27 Patient NPO since Midnight. 9:42:38 Patient allergic to Other allergyPCN 9:42:39 Is the patient allergic to Iodine/contrast media? No. 9:46:10 Vital chart was started 9:56:09 Baseline sample Acquired. 9:56:11 Oxygen 2 l/min etCO2 Nasal cannula was administered by Graham Chino RN; used for procedure; 9:56:13 Rhythm: sinus rhythm 9:56:14 Full Disclosure recording started 9:56:17 Is patient on blood thinner?No 9:56:17 Patient diabetic? Yes. 9:56:18 Lidocaine 2% 20ml vial added to field was administered by Chin Carter MD; used for procedure; 9:56:18 If diabetic: On Metformin? Yes 9:56:21 If on Metformin: Last Dose? 06/21/2018 9:56:26 Previous problem with sedation/anesthesia? Yes ? 9:56:27 Previous problem with sedation/anesthesia? No ? 9:56:29 Snore? Yes 9:56:35 Sleep apnea? No 9:56:36 0.9% NaCl 100 ml/hr I.V. was administered by Graham Chino RN; Per physician; 9:56:36 Deviated septum? No 9:56:36 Opens mouth fully? Yes 9:56:37 Sticks out tongue? Yes 9:56:41 Airway obstruction? Yes ASTHMA 9:56:46 Dentures? Yes IN TIGHT 9:56:52 Pre procedure: right dorsailis pedis pulse 2+ Normal; easily identifiable; not easily obliterated 9:56:55 Pre procedure: left dorsailis pedis pulse 1+ Palpable, but thready & weak; easily obliterated 9:56:57 Patient pain scale 0/10 ?. 9:57:04 IV patent on arrival in left forearm with 0.9% NaCl at [facility]. 9:57:08 Bilateral groins area was prepped with chlora-prep and draped in sterile fashion 9:57:09 Alarms reviewed by R. N. 9:57:10 Sharps counted by scrub and verified by R.N. 9:57:12 ACIST Syringe (19536) opened to sterile field. 9:57:13 Bag Decanter (2002S) opened to sterile field. 9:57:13 Medline Cath Pack ([id number]) opened to sterile field. 9:57:14 ACIST Hand Control (32269) opened to sterile field. 9:57:15 ACIST Manifold (47475) opened to sterile field. 9:57:16 Tegaderm 4 x 4 (1626W) opened to sterile field. 9:57:18 SHEATH Prelude 5Fr 0.035 (ACK-6I-30-035) opened to sterile field. 9:57:20 DIAGNOSTIC WIRE .035 260cm J wire (960684) opened to sterile field. 9:59:38 Zero performed for pressure channel P1 10:00:23 Physician arrived 10:00:23 --------ALL STOP TIME OUT------ 10:00:24 Final Timeout: patient, procedure, and site verified with staff and physician. All members of the team are in agreement. 10:00:26 Bilateral groins site verified by team. 10:00:28 Physical assessment completed. ASA score P 3 - A patient with severe systemic disease as per Chin Carter MD. 10:00:31 Sedation plan: IV Moderate Sedation Medication:Versed, Fentanyl 10:01:29 Versed 2 mg I.V. was administered by Graham Chino RN; for sedation; 10::34 Fentanyl 100 mcg I.V. was administered by Graham Chino RN; for sedation; 10::31 Procedure started. 10:02:35 Local anesthetic to right femoral artery with Lidocaine 2% by Chin Carter MD.INITIAL ACCESS ONLY 10:02:55 A 5 Fr sheath was inserted into the Right Femoral artery 10:03:02 A Medtronic Dexterity 5Fr Pigtail catheter(NO COST SUPPLY) was advanced over the wire and used for Procedure. 10:04:17 LV gram done using SHAHID 10:04:19 Injector settings: Ml/sec: 10, Volume: 20, 10:04:22 LV hemodynamics recorded. 10:04:32 EF : 55 % 10:04:47 Abdominal angiogram w/ runoff was performed. 10:04:50 Left renal angiography performed. 10:04:54 Right renal angiography performed. 10:05:17 Catheter exchanged over wire. 10:05:21 A Medtronic Dexterity 5Fr JL 4.0 catheter (NO COST SUPPLY) was advanced over the wire and used for Procedure. 10:06:12 LCA angiography performed. 10:06:45 Versed 1 mg I.V. was administered by Graham Chino RN; for sedation; 10:06:49 Fentanyl 50 mcg I.V. was administered by Graham Chino RN; for sedation; 10:07:10 Catheter exchanged over wire. 10:07:14 A Medtronic Dexterity 5Fr 3DRC catheter (NO COST SUPPLY) was advanced over the wire and used for Procedure. 10:07:31 CHOICE PT Extra Support 182cm wire ([id number]) opened to sterile field. 10:07:32 INFLATOR Merit BasixCompak (MT0081) opened to sterile field. 10:07:32 [place] IVUS Catheter (75502I) opened to sterile field. 10:08:14 RCA angiography performed. 10:08:41 GUIDE 6FR HS II SH catheter ([id number]) opened to sterile field. 10:08:43 Catheter removed. 10:08:50 SHEATH Prelude 6Fr 0.035 (ADD-0O-68-035) opened to sterile field. 10:08:59 Sheath upsized to a 6 Fr Short. 10:09:54 Heparin Bolus 4000 units I.V. was administered by Graham Chino RN; for anticoagulation; verified with dr carter 10:10:01 6 Fr HS II SH guide catheter was inserted over the wire 10::08 CHOICE PT ES wire advanced. 10::55 Wire advanced across lesion. 10:11:18 IVUS catheter advanced over wire. 10:11:22 IVUS pass to RCA lesion performed. 10:12:16 Integrilin (Bolus 2mg/ml) 8.5 ml I.V. was administered by Graham Chino RN; for antiplatelet therapy; Wasted 1.5 ml of vial 10:14:31 IVUS catheter removed over wire. 10:16:15 Place stent Inflation Number: 1 A KRISTIAN RX 4.0 x 22 stent ([id number]) was prepped and advanced across the Prox RCA. The stent was deployed at 17 TAMMY for 0:10 (min:sec). 10:16:36 Inflation number: 1 The stent balloon was then re-inflated across the Mid RCA to 17 TAMMY for 0:10 (min:sec). 10:16:42 Inflation number: 2 The stent balloon was then re-inflated across the Mid RCA to 13 TAMMY for 0:10 (min:sec). 10:17:08 Inflation number: 3 The stent balloon was then re-inflated across the Mid RCA to 15 TAMMY for 0:10 (min:sec). 10:17:43 Stent catheter was removed intact over wire. 10:19:08 Place stent Inflation Number: 4 A KRISTIAN RX 4.0 x 12 stent ([id number]) was prepped and advanced across the Mid RCA. The stent was deployed at 17 TAMMY for 0:10 (min:sec). 10:19:17 Stent catheter was removed intact over wire. 10:19:18 Wire removed. 10:19:19 Guide catheter removed. 10:19:25 EXOSEAL 6Fr (EX600) opened to sterile field. 10:19:31 Sheath removed intact; hemostasis achieved with Exoseal to the Right Femoral artery. 10:19:32 Procedure ended.(Physican Out) 10:: Fluoroscopy time 06.30 minutes. 10::30 Fluoroscopy dose: 1295 mGy 10:: Flurop Dose total: 1295 10:21:42 Contrast amount:Isovue 300 160ml. 10:21:43 Sharps counted by scrub and verified by R.N. 10::44 Plavix 600 mg P.O. was administered by Graham Chino RN; for antiplatelet therapy; 10::44 Insertion/operative site no bleeding no hematoma. 10:21:46 Post-op/insertion site Right Femoral artery dressed using a 4 x 4 and Tegaderm. 10:21:48 Post right femoral artery:stable, soft, clean and dry 10:22:20 Post Procedure Pulses reassessed and unchanged 10:22:23 Post-procedure physical assessment completed. ASA score P 3 - A patient with severe systemic disease as per Chin Carter MD. 10:22:24 Post procedure rhythm: unchanged. 10:22:28 Estimated blood loss: 10 ml 10:22:29 Post procedure instruction explained to patient.Patient verbalizes understanding. 10:22:29 Patient needs reinforcement of post procedure teaching. 10:22:50 Procedure type changed to Cath procedure, Diagnostic procedure, LHC, LHC w/Coronaries, FFR/IVUS, Intra-Coronary IVUS Initial, Sedation Charges, Moderate Sedation up to 15 minutes, PCI procedure, Coronary Stent, Coronary Stent Initial, Peripheral Cath Diagnostic Procedure, [employer] Peripheral Procedures, Kuxfv-Mvmhwqo-Lha-Off 10:23:22 Procedure and supply charges have been captured, reviewed, submitted and are correct. 10:23:26 Vital chart was stopped 10:23:26 See physician's report for complete and final results. 10:23:28 Report given to PCU. 10:23:32 Patient transfered to PCU with Stretcher. 10:23:34 Procedure ended. 10:23:34 Full Disclosure recording stopped 10:23:38 End room use (Document Last) Intervention Summary Intervention Notes Time ActionType Lesion and Equipment Used Action# Pressure Duration Attributes 10:16:15 Place stent Prox RCA KRISTIAN RX 4.0 x 1 17 00:10 22 stent ([id number]) 10:16:36 Reinflate Mid RCA KRISTIAN RX 4.0 x 1 17 00:10 stent 22 stent balloon ([id number]) 10:16:42 Reinflate Mid RCA KRISTIAN RX 4.0 x 2 13 00:10 stent 22 stent balloon ([id number]) 10:17:08 Reinflate Mid RCA KRISTIAN RX 4.0 x 3 15 00:10 stent 22 stent balloon ([id number]) 10:19:08 Place stent Mid RCA KRISTIAN RX 4.0 x 4 17 00:10 12 stent ([id number]) Device Usage Item Name Manufacture Quantity Catalog Number Hospital Part Current Minimal Lot# / Charge Number Stock Stock Serial# Code ACIST Syringe Acist 1 99934 544121 706036 [id number] 20 (79037) [employer] Bag Decanter Microtek 1 [id number] 26883 462039 5 () Medical Inc. Medline Cath Medline 1 [id number] 139248 79453 400958 5 Pack ([id number]) ACIST Hand Acist 1 96980 938636 476641 874134 5 Control (35386) [employer] ACIST Manifold Acist 1 37013 479465 148224 138142 5 (34682) [employer] Tegaderm 4 x 4 3M 1 1626W 871297 259737 143203 5 (1626W) SHEATH Prelude Merit 1 RRJ-8S-06-035 831427 048685 969363 5 5Fr 0.035 Medical (PJM-2Z-85-035) DIAGNOSTIC WIRE [place] 1 136961 514863 154909 817695 30 .035 260cm J wire (401898) Medtronic Medtronic 1 [id number] 270838 702505 5 Dexterity 5Fr Pigtail catheter(NO COST SUPPLY) Medtronic Medtronic 1 [id number] 079108 326936 5 Dexterity 5Fr JL 4.0 catheter (NO COST SUPPLY) Medtronic Medtronic 1 [id number] 319291 435306 5 Dexterity 5Fr 3DRC catheter (NO COST SUPPLY) CHOICE PT Extra [place] 1 [id number] 583898 495407 808286 5 Support 182cm Scientific wire ([id number]) INFLATOR Merit Merit 1 BO9855 410094 475161 558515 15 BasixCompak Medical ([id number]) [place] 1 10289N 296661 093272 095361 8 [place] IVUS Catheter (91807Y) GUIDE 6FR HS II Medtronic 1 [id number] 709516 85165 923273 1 SH catheter ([id number]) SHEATH Prelude Merit 1 UEE-5P-80-35 805333 2959442 261753 5 6Fr 0.035 Medical (UZD-2T-83-035) KRISTIAN RX 4.0 x Medtronic 1 [id number] 637461 0433489 784265 5 [id number] 22 stent ([id number]) KRISTIAN RX 4.0 x Medtronic 1 [id number] 346232 2822650 681796 5 [id number] 12 stent ([id number]) EXOSEAL 6Fr Cardinal 1 EX600 782037 475675 207506 10 (EX600) Health Signature Audit [place] Stage Time Signature Unsigned Intra-Procedure 06/22/2018 Abe Hitchcock 10:25:54 AM RT(R) Signatures Monitor : Abe Hitchcock RT Signature : Date : Time : [address] [address]
--- NOTE | ~2018-06-22 | DS ---
PATIENT:DENTON COSTELLO :31 MEDICAL RECORD: [id number] DISCHARGE SUMMARY ADMISSION DATE: 06/22/18 DISCHARGE DATE: 06/23/18 DISCHARGE DIAGNOSES: 1. Unstable angina. 2. Coronary artery disease. 3. Percutaneous transluminal coronary angioplasty and stent right coronary artery and percutaneous transluminal coronary angioplasty of the left anterior descending this admission. BRIEF HISTORY AND HOSPITAL COURSE: Mr. Costello presents with unstable anginal symptomatology, found to have significant disease of the RCA and LAD, underwent PTCA and stent of the RCA and high-pressure PTCA of the LAD, had no further anginal symptomatology. Discharged home with no change in his medications as he is already on aspirin and Plavix. Follow up with [facility] in 1 month. TRANSINT:[id number] Voice Confirmation ID: [id number] DOCUMENT ID: [id number] LUNA ESCOBAR MD at 1914 CC: [id number] DICTATION DATE: 06/23/18 1057 GAS PLUMBER: 06/23/18 2329 DEP CLI 06/23/18 [facility] [address] [place] [address]
[2018-06-22] MEDS ORDERED: LIPITOR80 MG PO (08:10)
[2018-06-22] MEDS ORDERED: BAYER CHEWABLE81 MG PO (08:11)
[2018-06-22 08:12] VITALS: BP 125/80; BMI 31.8
[2018-06-22 08:48] LABS: CALC OSMOLALITY 275 mosm/kg (275-300); CARBON DIOXIDE 26.7 mmol/L (21.0-32.0); CHLORIDE - SERUM 103 mmol/L (98-107); GLUCOSE 126 mg/dL (74-106); POTASSIUM - SERUM 3.9 mmol/L (3.5-5.1); SODIUM 137 mmol/L (136-145); UREA NITROGEN 13 mg/dL (7-18); eGFR NON AFRICAN AMERICAN 76 mL/min (90-120)
[2018-06-22 09:15] LABS: BASOPHILS 0.4 % (0-2); EOSINOPHILS 1.6 % (0-7); HEMATOCRIT 43.2 % (42.0-54.0); HEMOGLOBIN 14.2 g/dL (13.5-17.5); IMMATURE GRANULOCYTES 0.3 % (0-5); LYMPHOCYTES 19.8 % (15-50); MCH 30.4 pg (26.0-34.0); MCHC 32.9 g/dL (31.0-37.0); MCV 92.5 fL (80.0-100.0); MEAN PLATELET VOLUME 9.9 fL (7.4-10.4); MONOCYTES 8.6 % (2-11); NEUTROPHILS 69.3 % (40-80); PLATELET COUNT 216 10x3/uL (130-400); RBC 4.67 10x6/uL (4.20-6.10)
[2018-06-22 10:53] VITALS: BP 147/81; Ht 172.7 cm; Wt 95.0 kg
[2018-06-22 15:33] VITALS: BP 114/62
[2018-06-22 20:00] VITALS: BP 106/70
[2018-06-23] VITALS: BP 99/66
[2018-06-23 04:00] VITALS: BP 122/97
[2018-06-23 08:14] VITALS: BP 100/71
[2018-06-23] MEDS ORDERED: PLAVIX75 MG PO (11:23)
[2018-06-23 11:52] VITALS: BP 117/58
[2018-06-23 15:03] VITALS: BP 119/57
== END 2018-06-23 15:28 | disposition home or self-care (01) ==
LOC: D.M2 07:44 → D.CATH 07:44 → D.M2 10:34 → D.CATH 06-23 15:28
PROVIDERS: Internal Medicine Interventional Cardiology
DX: I25.110 Atherosclerotic heart disease of native coronary artery with unstable angina pectoris (principal); I70.213 Atherosclerosis of native arteries of extremities with intermittent claudication, bilateral legs

== ENCOUNTER 2018-07-29 14:23 | Emergency (ER) | payer MEDICARE, BC ==
[~2018-07-29] VITALS: Ht 172.7 cm; Wt 95.0 kg
[~2018-07-29 14:23] MED LIST changes: +LIPITOR80 MG PO
[2018-07-29 14:38] VITALS: Ht 172.7 cm; Wt 95.0 kg
[2018-07-29 15:30] LABS: BASOPHILS 0.6 % (0-2); EOSINOPHILS 2.1 % (0-7); HEMATOCRIT 40.4 % (42.0-54.0); HEMOGLOBIN 13.4 g/dL (13.5-17.5); IMMATURE GRANULOCYTES 0.3 % (0-5); LYMPHOCYTES 22.4 % (15-50); MCH 30.2 pg (26.0-34.0); MCHC 33.2 g/dL (31.0-37.0); MEAN PLATELET VOLUME 9.5 fL (7.4-10.4); MONOCYTES 6.3 % (2-11); NEUTROPHILS 68.3 % (40-80); PLATELET COUNT 205 10x3/uL (130-400); RBC 4.44 10x6/uL (4.20-6.10); RDW 15.1 % (11.5-14.5); WBC 7.8 10x3/uL (4.8-10.8)
[2018-07-29 15:55] LABS: ALBUMIN 2.9 g/dL (3.4-5.0); ALKALINE PHOSPHATASE 120 U/L (46-116); ALT (SGPT) 17 U/L (10-68); BILIRUBIN - TOTAL 0.42 mg/dL (0.2-1.3); CALC OSMOLALITY 280 mosm/kg (275-300); CALCIUM 8.3 mg/dL (8.5-10.1); CARBON DIOXIDE 23.4 mmol/L (21.0-32.0); CHLORIDE - SERUM 104 mmol/L (98-107); GLUCOSE 160 mg/dL (74-106); POTASSIUM - SERUM 3.8 mmol/L (3.5-5.1); PROTEIN - SERUM 6.2 g/dL (6.4-8.2); SODIUM 139 mmol/L (136-145); UREA NITROGEN 13 mg/dL (7-18); eGFR NON AFRICAN AMERICAN 76 mL/min (90-120)
[2018-07-29 16:01] LABS: CKMB 1.2 U/L (0.0-3.6); CREATINE KINASE 40 UL (21-232); TROPONIN-I < 0.017 ng/mL (0.000-0.060)
[2018-07-29] MEDS ORDERED: VIBRAMYCIN 100100 MG PO (21:35)
[2018-07-29] MEDS ORDERED: PHENERGAN DM SYR5 ML PO (21:36)
[2018-07-29 22:58] VITALS: BP 133/70
== END 2018-07-29 23:00 | disposition home or self-care (01) ==
LOC: D.ER 14:23
PROVIDERS: Family Medicine
DX: R05 Cough (principal); J06.9 Acute upper respiratory infection, unspecified; E11.9 Type 2 diabetes mellitus without complications

== ENCOUNTER 2018-08-12 12:07 | Emergency (ER) | payer MEDICARE, BC ==
[~2018-08-12] VITALS: Ht 172.7 cm; Wt 93.2 kg
[~2018-08-12 12:07] MED LIST changes: +PHENERGAN DM SYR5 ML PO; +VIBRAMYCIN 100100 MG PO
[2018-08-12 12:21] VITALS: Ht 172.7 cm; Wt 93.2 kg
[2018-08-12 12:56] LABS: BASOPHILS 0.3 % (0-2); EOSINOPHILS 1.2 % (0-7); HEMATOCRIT 40.8 % (42.0-54.0); HEMOGLOBIN 13.4 g/dL (13.5-17.5); IMMATURE GRANULOCYTES 0.2 % (0-5); MCH 29.5 pg (26.0-34.0); MCHC 32.8 g/dL (31.0-37.0); MCV 89.9 fL (80.0-100.0); MEAN PLATELET VOLUME 9.6 fL (7.4-10.4); MONOCYTES 6.9 % (2-11); NEUTROPHILS 71.4 % (40-80); PLATELET COUNT 194 10x3/uL (130-400); RBC 4.54 10x6/uL (4.20-6.10); RDW 15.3 % (11.5-14.5); WBC 9.3 10x3/uL (4.8-10.8)
[2018-08-12 13:12] LABS: ALBUMIN 2.5 g/dL (3.4-5.0); ALKALINE PHOSPHATASE 116 U/L (46-116); ALT (SGPT) 13 U/L (10-68); BILIRUBIN - TOTAL 0.54 mg/dL (0.2-1.3); CALC OSMOLALITY 281 mosm/kg (275-300); CALCIUM 8.6 mg/dL (8.5-10.1); CARBON DIOXIDE 24.4 mmol/L (21.0-32.0); CHLORIDE - SERUM 105 mmol/L (98-107); GLUCOSE 130 mg/dL (74-106); POTASSIUM - SERUM 3.9 mmol/L (3.5-5.1); PROTEIN - SERUM 5.9 g/dL (6.4-8.2); SODIUM 139 mmol/L (136-145); UREA NITROGEN 18 mg/dL (7-18); eGFR NON AFRICAN AMERICAN 76 mL/min (90-120)
[2018-08-12 13:15] LABS: C-REACTIVE PROTEIN 0.4 mg/dL (0.0-0.9)
[2018-08-12 13:16] LABS: TROPONIN-I < 0.017 ng/mL (0.000-0.060)
[2018-08-12 14:37] VITALS: BP 103/67
== END 2018-08-12 14:38 | disposition home or self-care (01) ==
LOC: D.ER 12:07
PROVIDERS: Family Medicine
DX: M48.061 Spinal stenosis, lumbar region without neurogenic claudication (principal); M54.16 Radiculopathy, lumbar region; E11.9 Type 2 diabetes mellitus without complications

== ENCOUNTER 2018-12-21 17:53 | Observation (INO) | payer MEDICARE, BC ==
[~2018-12-21] VITALS: Ht 172.7 cm; Wt 92.3 kg
--- NOTE | ~2018-12-21 | HEMODYNAMI ---
PATIENT:DENTON ZUÑIGA MEDICAL RECORD: [id number] : 31 LOCATION:[facility] D.2119 ADMISSION DATE: 12/21/18 Generatedon:12/22/20189:40 Patient name: DENTON ZUÑIGA Patient #: [id number] SSN: : 1935 Date of study: 12/22/2018 Page: Of Hemodynamic Procedure Report Patient Data Patient Demographics Procedure consent was obtained First Name: DENTON Gender: Male Last Name: YOGESH : 1935 [facility] Initial: E Age: 83 year(s) Patient #: [id number] Race: Additional ID: [id number] Contact details Address: [address] [place] [address] [facility] State: [place] City: [place] Zip code: [address] Past Medical History History of disease Date Diagnosis Comments CAD Allergies Allergen Reaction Date Comments Reported Penicillins 08/16/2014 Penicillins 10/16/2016 Penicillins 10/04/2017 Penicillins 04/14/2018 Other allergy 06/22/2018 PCN Admission Admission Data Admission Date: 12/21/2018 Admission Time: 19:15 Room #: D.2119 Height (in.): 68 BSA: 2.06 (m2) Height (cm.): 172.72 BMI: 30.93 (kg/m2) Weight (lbs.): 203.42 Weight (kg.): 92.27 Lab Results Lab Result Date: 12/22/2018 Lab Result Time: 0:00 Biochemistry Name Units Result Min Max BUN mg/dl 16 --(---*)-- 7 18 Creatinine mg/dl 0.9 --(-*--)-- 0.6 1.3 CBC Name Units Result Min Max Hemoglobin g/dl 12.9 -*(----)-- 13.5 17.5 Procedure Procedure Types Cath Procedure Diagnostic Procedure LHC LHC w/Coronaries PCI Procedure Coronary Stent Coronary Stent Initial Procedure Description Procedure Date Procedure Date: 12/22/2018 Procedure Start Time: 9:23 Procedure End Time: 9:35 Procedure Staff Name Function Chin Carter MD Performing Physician Graham Chino RN Nurse Emma Ruiz RT Monitor Mark Seymour RT Scrub Procedure Data Cath Procedure Fluoroscopy Diagnostic fluoroscopy Total fluoroscopy Time: 2 time: 2 min min Diagnostic fluoroscopy Total fluoroscopy dose: 804 dose: 804 mGy mGy Contrast Material Contrast Material Type Amount (ml) Isovue 300 66 Entry Location Entry Primary Successful Side Size Upsize Upsize Entry Closure Succes sful Closure Location (Fr) 1 (Fr) 2 (Fr) Remarks Device Remarks Femoral Right 5 Fr 6 Fr Exoseal artery Short Diagnostic catheters Device Type Used For End Catheter Placement MULTIPACK Pigtail 5 Fr LV Angiography catheter MULTIPACK JL 4.0 5Fr Left Coronary catheter Angiography MULTIPACK 3DRC 5Fr Right Coronary catheter Angiography Procedure Complications No complications Procedure Medications Medication Administration Route Dosage Oxygen etCO2 Nasal cannula 2 l/min Lidocaine 2% added to field 20 Heparin Flush Bag added to field 2 bags (1000units/500ml NS) 0.9% NaCl I.V. 100 ml/hr Versed I.V. 1 mg Fentanyl I.V. 50 mcg Versed I.V. 1 mg Fentanyl I.V. 50 mcg Versed I.V. 1 mg Fentanyl I.V. 50 mcg Heparin Bolus I.V. 4000 units Hemodynamics Rest BSA: 2.06 (m2) HGB: 12.9 (g/dl) O2 Consumption: Estimated: 245.46 (ml/min) O2 Co nsumption indexed: Estimated:119.16 (ml/min/m) Heart Rate: 85 (bpm) Snapshots Pre Cath Intra NCS Post Cath Vital Signs Time Heart Resp SPO2 etCO2 NIBP (mmHg) Rhythm Pain Sedation Rate (ipm) (%) (mmHg) Status Level (bpm) 8:59:26 95 15 97 28.4 152/101(131) NSR 0 (11) 10(A) , No pain 9:03:36 89 19 96 0 142/102(120) NSR 0 (11) 10(A) , No pain 9:07:46 74 18 97 8.9 141/90(115) NSR 0 (11) 10(A) , No pain 9:11:56 77 14 96 18.7 128/90(112) NSR 0 (11) 9(A) , No pain 9:16:04 66 12 95 21.7 134/82(104) NSR 0 (11) 9(A) , No pain 9:20:16 77 14 98 23.9 140/78(100) NSR 0 (11) 9(A) , No pain 9:24:28 79 13 98 12.7 120/85(102) NSR 0 (11) 9(A) , No pain 9:28:29 72 13 98 30.6 139/89(113) NSR 0 (11) 9(A) , No pain 9:32:41 74 14 98 29.1 147/81(121) NSR 0 (11) 9(A) , No pain 9:37:30 71 13 98 26.9 117/84(95) NSR 0 (11) 10(A) , No pain Medications Time Medication Route Dose Verified Delivered Reason Notes Effectiveness by by 9:00:14 Oxygen etCO2 2 Chin Colungaie used for Nasal l/min Emma Chino RN procedure cannula 9:00:25 Lidocaine 2% added 20ml Chin Chin for local to vial Emma Carter MD anesthetic field 9:00:31 Heparin Flush added 2 Chin Chin used for Bag to bags Emma Carter MD procedure (1000units/500ml field NS) 9:00:39 0.9% NaCl I.V. 100 Chin Buffie Per physician ml/hr Emma Chino RN 9:06:34 Versed I.V. 1 mg Chin Buffie for sedation Emma Chino RN 9:06:39 Fentanyl I.V. 50 Chin Buffie for sedation mcg Emma Chino RN 9:08:27 Versed I.V. 1 mg Chin Buffie for sedation Emma Chino RN 9:08:32 Fentanyl I.V. 50 Chin Buffie for sedation mcg Emma Chino RN 9:22:36 Versed I.V. 1 mg Chin Buffie for sedation Emma Chino RN 9:22:39 Fentanyl I.V. 50 Chin Buffie for sedation mcg Emma Chino RN 9:29:55 Heparin Bolus I.V. 4000 Chin Buffie for verifi ed units Emma Chino RN anticoagulation with dr carter Procedure Log Time Note 8:07:45 Patient Height : 68 inches 8:07:51 Patient Weight : 203.42 lbs 8:08:21 Lab Result : Hemoglobin 12.9 g/dl 8:08:21 Lab Result : Creatinine 0.9 mg/dl 8:08:21 Lab Result : BUN 16 mg/dl 8:11:41 Diagnostic Cath status Elective 8:11:43 Graham Chino RN sent for patient. Start room use. 8:11:46 Time tracking: Regular hours (M-F 7:00 - 5:00) 8:11:52 Plan of Care:Hemodynamics will remain stable., Cardiac rhythm will remain stable., Comfort level will be maintained., Respiratory function will remain adequate., Patient/ family verbilizes understanding of procedure., Procedure tolerated without complication., Recovers from procedure without complications.. 8:49:40 Patient received from Med II to [facility] 2 Alert and oriented. Tansferred to table in Supine position. 8:49:42 Warm blankets applied, and sandy hugger turned on for patient comfort. 8:49:42 Correct patient and procedure confirmed by team. 8:49:45 Signed procedure consent form obtained from patient. 8:50:00 ECG and BP/O2 sat monitors applied to patient. 8:58:25 Vital chart was started 8:58:26 Baseline sample Acquired. 8:58:28 Rhythm: sinus rhythm 8:58:34 Full Disclosure recording started 8:58:38 H&P Date Dictated: 12/22/2018 Emergent; H&P N/A. 8:58:39 Pre-procedure instructions explained to patient. 8:58:50 Pre-op teaching completed and patient verbalized understanding. 8:58:54 Family in patients room. 8:58:56 Patient NPO since Midnight. 8:59:21 Is the patient allergic to Iodine/contrast media? No. 8:59:28 Is patient on blood thinner?Yes 8:59:31 ACC The patient was administered the following blood thiners within the last 24 hours: ACCPlavix 9:00:14 Oxygen 2 l/min etCO2 Nasal cannula was administered by Graham Chino RN; used for procedure; 9:00:25 Lidocaine 2% 20ml vial added to field was administered by Chin Carter MD; for local anesthetic; 9:00:31 Heparin Flush Bag (1000units/500ml NS) 2 bags added to field was administered by Chin Carter MD; used for procedure; 9:00:36 Patient diabetic? No. 9:00:38 ----Pre-sedation anethsthesia assessment.---- 9:00:39 0.9% NaCl 100 ml/hr I.V. was administered by Graham Chino RN; Per physician; 9:00:40 Previous problem with sedation/anesthesia? No ? 9:00:43 Snore? Yes 9:00:49 Sleep apnea? No 9:00:51 Deviated septum? No 9:00:52 Opens mouth fully? Yes 9:00:53 Sticks out tongue? Yes 9:01:01 Airway obstruction? No ? 9:01:04 Dentures? No ? 9:01:07 Pre procedure: right dorsailis pedis pulse 1+ Palpable, but thready & weak; easily obliterated 9:01:11 Patient pain scale 0/10 ?. 9:01:14 IV patent on arrival in right antecubital with 0.9% NaCl at 10ml/hr. 9:01:17 Lab results completed and on chart. 9:01:20 Right groin area was prepped with chlora-prep and draped in sterile fashion 9:01:21 Alarms reviewed by R. N. 9:01:21 Sharps counted by scrub and verified by R.N. 9:01:23 Physician arrived 9:03:56 --------ALL STOP TIME OUT------ 9:03:57 Final Timeout: patient, procedure, and site verified with staff and physician. All members of the team are in agreement. 9:04:01 Right groin site verified by team. 9:04:04 Maximum allowable Isovue 300 dose 300ml. Physician notified. (300ml for normal creatinines. For patients with creatinine of 1.7 or higher multiply weight(kg) x 5 divided by creatinine.) 9:04:08 Fire Safety Assessment: A--An alcohol-based skin anteseptic being used preoperatively., C--Open oxygen or nitrous oxide is being used., D--An ESU, laser, or fiber-optic light is being used. 9:04:11 Physical assessment completed. ASA score P 2 - A patient with mild systemic disease as per Chin Carter MD. 9:04:18 Sedation plan: IV Moderate Sedation Medication:Versed, Fentanyl 9:06:34 Versed 1 mg I.V. was administered by Graham Chino RN; for sedation; 9::39 Fentanyl 50 mcg I.V. was administered by Graham Chino RN; for sedation; 9:08:27 Versed 1 mg I.V. was administered by Graham Chino RN; for sedation; 9:08:32 Fentanyl 50 mcg I.V. was administered by Graham Chino RN; for sedation; 9:11:10 Use device set Femoral Dx 9:11:11 ACIST Syringe (42070) opened to sterile field. 9:11:11 Bag Decanter (2002S) opened to sterile field. 9:11:12 Medline Cath Pack ([id number]) opened to sterile field. 9:11:12 DIAGNOSTIC WIRE .035 260cm J wire (922798) opened to sterile field. 9:11:16 ACIST Hand Control (56158) opened to sterile field. 9:11:17 ACIST Manifold (11944) opened to sterile field. 9:11:17 DIAGNOSTIC Multipack 5Fr catheter set (ZE9599) opened to sterile field. 9:11:18 Tegaderm 4 x 4 (1626W) opened to sterile field. 9:11:20 SHEATH 5FR [place] (TWP143) opened to sterile field. 9:22:04 Procedure started. 9:22:36 Versed 1 mg I.V. was administered by Graham Chino RN; for sedation; ::39 Fentanyl 50 mcg I.V. was administered by Graham Chino RN; for sedation; 9:23:42 Local anesthetic to right femoral artery with Lidocaine 2% by Chin Carter MD.INITIAL ACCESS ONLY 9:24:53 A 5 Fr sheath was inserted into the Right Femoral artery 9:25:04 A MULTIPACK Pigtail 5 Fr catheter was advanced over the wire and used for LV Angiography. 9:25:07 LV angiography performed. 9:25:09 LV gram done using SHAHID 9:25:27 EF : 55 % 9:25:31 Catheter removed. 9:25:39 A MULTIPACK JL 4.0 5Fr catheter was advanced over the wire and used for Left Coronary Angiography. 9:25:46 LCA angiography performed. 9:25:49 Zero performed for pressure channel P1 9:27:35 Catheter removed. 9:27:42 A MULTIPACK 3DRC 5Fr catheter was advanced over the wire and used for Right Coronary Angiography. 9:27:46 RCA angiography performed. 9:28:17 Catheter removed. 9:29:55 Heparin Bolus 4000 units I.V. was administered by Graham Chino RN; for anticoagulation; verified with dr carter 9:30:40 INFLATOR Merit BasixCompak (AB8262) opened to sterile field. 9:30:40 SHEATH 6FR [place] (DQY607) opened to sterile field. 9:30:41 CHOICE PT Extra Support 182cm wire ([id number]) opened to sterile field. 9:30:41 GUIDE 6FR 3DRC catheter ([id number]) opened to sterile field. 9:30:50 Sheath upsized to a 6 Fr Short. 9:31:00 6 Fr 3DRC guide catheter was inserted over the wire 9:31:07 CPTES wire advanced. 9:32:45 Inflate balloon Inflation number: 1 A INTEGRITY RX 4.0 x 09 stent ([id number]) was prepped and advanced across the Prox RCA, then inflated to 21 TAMMY for 0:14 (min:sec). 9:32:48 Stent catheter was removed intact over wire. 9:32:49 Wire removed. 9:32:51 Guide catheter removed. 9:32:56 Contrast amount:Isovue 300 66ml. 9:33:01 Sheath removed intact; hemostasis achieved with Exoseal to the Right Femoral artery. 9:33:10 EXOSEAL 6Fr (EX600) opened to sterile field. 9:33:13 Procedure ended.(Physican Out) 9:33:30 Fluoroscopy time 02.00 minutes. 9:33:33 Fluoroscopy dose: 804 mGy 9:33:33 Flurop Dose total: 804 9:33:35 Sharps counted by scrub and verified by R.N. 9:33:36 Insertion/operative site no bleeding no hematoma. 9:33:38 Post-op/insertion site Right Femoral artery dressed using a 4 x 4 and Tegaderm. 9:33:41 Post right femoral artery:stable 9:33:42 Post Procedure Pulses reassessed and unchanged 9:33:44 Post procedure: right dorsailis pedis pulse 1+ Palpable, but thready & weak; easily obliterated. 9:33:46 Post procedure rhythm: unchanged. 9:33:48 Post procedure instruction explained to patient.Patient verbalizes understanding. 9:33:50 Procedure and supply charges have been captured, reviewed, submitted and are correct. 9:34:03 Procedure type changed to Cath procedure, Diagnostic procedure, LHC, LHC w/Coronaries, PCI procedure, Coronary Stent, Coronary Stent Initial 9:34:09 Procedure Complication : No complications 9:34:28 Vital chart was stopped 9:34:28 See physician's report for complete and final results. 9:35:22 Report given to Pre/Post Procedure Room. 9:35:26 Patient transfered to Pre/Post Procedure Room with Stretcher. 9:35:29 Procedure ended. 9:35:29 Full Disclosure recording stopped 9:35:33 End room use (Document Last) 9:35:37 ACC-PCI Only Patient was given prescriptions, or instructed by Chin Carter MD to start/continue the following medications upon discharge: Plavix Intervention Summary Intervention Notes Time ActionType Lesion and Equipment Action# Pressure Duration Attributes Used 9:32:45 Inflate Prox RCA INTEGRITY RX 1 21 00:14 balloon 4.0 x 09 stent ([id number]) Device Usage Item Name Manufacture Quantity Catalog Number Hospital Part Current Mini mal Lot# / Charge Number Stock Stock Serial# Code ACIST Acist 1 10271 701625 265105 842268 20 Syringe Medical (39515) Systems Inc Bag Decanter Microtek 1 2001S 307962 82639 043673 5 () Medical Inc. Medline Cath Medline 1 [id number] 776304 43616 803033 5 Pack ([id number]) DIAGNOSTIC [place] 1 723799 970339 126115 319752 30 WIRE .035 260cm J wire (789161) ACIST Hand Acist 1 52011 185647 832531 812904 5 Control Medical (33384) Systems Inc ACIST Acist 1 27679 168606 785090 388473 5 Manifold Medical (63516) Systems Inc DIAGNOSTIC Cardinal 1 OC6169 298165 12322 848442 30 Jiff Health 5Fr catheter set (SM8976) Tegaderm 4 x 3M 1 1626W 780730 005890 380617 5 4 (1626W) SHEATH 5FR Terumo 1 QGN172 958183 596406 534731 5 [place] (YZM296) MULTIPACK Cardinal 1 972382 5 Pigtail 5 Fr Health catheter MULTIPACK JL Cardinal 1 459626 5 4.0 5Fr Health catheter MULTIPACK Cardinal 1 474593 5 3DRC 5Fr Health catheter INFLATOR Merit 1 MC5259 745853 597993 431034 15 [facility] Medical BasixCompak (OR5657) SHEATH 6FR Terumo 1 WWK358 620975 961625 092633 40 [place] (WRW637) CHOICE PT Medina 1 [id number] 344262 951987 696181 5 Extra Scientific Support 182cm wire ([id number]) GUIDE 6FR Medtronic 1 [id number] 994419 475082 465188 1 3DRC catheter (WZ65CTV) INTEGRITY RX Medtronic 1 [id number] 811933 856659 446962 5 [id number] 4.0 x 09 stent ([id number]) EXOSEAL 6Fr Cardinal 1 EX600 311688 774514 309708 10 (EX600) Health Signature Audit [place] Stage Time Signature Unsigned Intra-Procedure 12/22/2018 Mark Seymour RT(Cate) 9:40:13 AM Signatures Monitor : Emma Ruiz RT Signature : Date : Time : [place] [address] [place] [address]
--- NOTE | ~2018-12-21 | OP ---
PATIENT NAME: DENTON ZUÑIGA MEDICAL RECORD: [id number] :31 [facility]ATION:[facility] ADMISSION DATE:12/21/18 SURGEON: LUNA ESCOBAR MD DATE OF OPERATION: 12/22/2018 PROCEDURES: 1. Left heart catheterization. 2. Selective coronary angiography. 3. Left ventriculogram. 4. PTCA and stent, RCA. INDICATION: Angina and coronary artery disease. PROCEDURE IN DETAIL: After informed consent was obtained with detailed description of risks and benefits as well as alternative therapies, the patient elected to proceed with angiogram and angioplasty. The right femoral area was prepped and draped in normal sterile fashion. The right femoral artery was cannulated via modified Seldinger technique with placement of 6-[place] sheath. All catheters were exchanged through this sheath. FINDINGS: The left ventriculogram performed in standard 30-degree SHAHID view reveals preserved cardiac wall motion. Ejection fraction 60%. SELECTIVE CORONARY ANGIOGRAPHY: 1. Left main has no significant angiographic disease. 2. Left anterior descending has previously placed stents in the LAD and the diagonal. These are widely patent with no significant restenosis. No disease elsewise throughout the LAD or its branches. 3. Left circumflex has mild irregularities, but no flow-limiting stenosis. 4. Right coronary has previously placed stents. These are widely patent. They, however, do not go all the way to the ostium. The ostium is at least 80% stenosed with pressure damping of the diagnostic catheter. PTCA AND STENT OF THE RCA: The stent used was 4.0 x 9 mm Integrity. Result was 0% residual stenosis. OVERALL IMPRESSION: Successful PTCA and stent of the RCA, going from 80+ percent initial stenosis at the ostium to 0% residual. TRANSINT:[id number] Voice Confirmation ID: [id number] DOCUMENT ID: [id number] LUNA ESCOBAR MD CC: [id number] DICTATION DATE: 12/22/18 0940 QM NURSE: 12/22/18 1250 ADM IN [place] [id number] [place] [id number]
--- NOTE | ~2018-12-21 | DS ---
PATIENT:DENTON COSTELLO :31 MEDICAL RECORD: [id number] DISCHARGE SUMMARY ADMISSION DATE: 12/21/18 DISCHARGE DATE: 12/22/18 DISCHARGE DIAGNOSES: 1. Unstable angina. 2. PTCA stent RCA this admission. 3. Coronary artery disease. 4. Hypertension. 5. Hyperlipidemia. 6. Paroxysmal atrial fibrillation. HOSPITAL COURSE: Mr. Costello presents with unstable anginal symptomatology, found to have significant disease of the RCA, underwent successful PTCA stent of the RCA. He was discharged home with the addition of aspirin and Plavix to his medical regimen. We will follow up with [facility] in 1 month. TRANSINT:[id number] Voice Confirmation ID: [id number] DOCUMENT ID: [id number] LUNA ESCOBAR MD CC: [id number] DICTATION DATE: 12/22/18939 SLIP MAKER: 12/23/18 0108 DIS IN 12/22/18 [facility] [address] [place] [address]
[2018-12-21 18:00] VITALS: BP 103/68
[2018-12-21 18:37] LABS: BASOPHILS 0.7 % (0-2); EOSINOPHILS 1.6 % (0-7); HEMATOCRIT 39.5 % (42.0-54.0); HEMOGLOBIN 13.2 g/dL (13.5-17.5); IMMATURE GRANULOCYTES 0.4 % (0-5); LYMPHOCYTES 21.8 % (15-50); MCH 30.3 pg (26.0-34.0); MCHC 33.4 g/dL (31.0-37.0); MCV 90.8 fL (80.0-100.0); MEAN PLATELET VOLUME 9.4 fL (7.4-10.4); MONOCYTES 8.4 % (2-11); NEUTROPHILS 67.1 % (40-80); PLATELET COUNT 228 10x3/uL (130-400); RBC 4.35 10x6/uL (4.20-6.10); RDW 15.7 % (11.5-14.5)
[2018-12-21 18:58] LABS: INR 1.16 (0.85-1.17); PROTIME 14.3 SECONDS (11.6-15.0)
[2018-12-21 18:59] LABS: APTT 32.9 SECONDS (22.8-39.4)
[2018-12-21 19:03] LABS: ALBUMIN 2.7 g/dL (3.4-5.0); ALKALINE PHOSPHATASE 90 U/L (46-116); ALT (SGPT) 17 U/L (10-68); BILIRUBIN - TOTAL 0.39 mg/dL (0.2-1.3); CALC OSMOLALITY 282 mosm/kg (275-300); CALCIUM 8.7 mg/dL (8.5-10.1); CARBON DIOXIDE 25.3 mmol/L (21.0-32.0); CHLORIDE - SERUM 106 mmol/L (98-107); GLUCOSE 146 mg/dL (74-106); POTASSIUM - SERUM 3.9 mmol/L (3.5-5.1); PROTEIN - SERUM 6.1 g/dL (6.4-8.2); SODIUM 139 mmol/L (136-145); UREA NITROGEN 17 mg/dL (7-18); eGFR NON AFRICAN AMERICAN 75 mL/min (90-120)
[2018-12-21 19:14] LABS: CREATINE KINASE 39 UL (21-232); MAGNESIUM - SERUM 1.6 mg/dL (1.8-2.4); TROPONIN-I 0.018 ng/mL (0.000-0.060)
[2018-12-21 20:45] VITALS: BP 116/73
[2018-12-21 23:37] VITALS: BP 117/56
[2018-12-22 00:07] VITALS: BP 116/73; Ht 172.7 cm; Wt 92.3 kg
[2018-12-22 06:05] LABS: BASOPHILS 0.4 % (0-2); EOSINOPHILS 1.6 % (0-7); HEMATOCRIT 38.3 % (42.0-54.0); HEMOGLOBIN 12.9 g/dL (13.5-17.5); IMMATURE GRANULOCYTES 0.3 % (0-5); LYMPHOCYTES 26.3 % (15-50); MCH 30.5 pg (26.0-34.0); MCHC 33.7 g/dL (31.0-37.0); MCV 90.5 fL (80.0-100.0); MEAN PLATELET VOLUME 9.7 fL (7.4-10.4); MONOCYTES 9.6 % (2-11); NEUTROPHILS 61.8 % (40-80); PLATELET COUNT 230 10x3/uL (130-400); RBC 4.23 10x6/uL (4.20-6.10)
[2018-12-22 06:16] VITALS: BP 121/65
[2018-12-22 06:27] LABS: ALBUMIN 2.6 g/dL (3.4-5.0); ALKALINE PHOSPHATASE 86 U/L (46-116); ALT (SGPT) 17 U/L (10-68); BILIRUBIN - TOTAL 0.54 mg/dL (0.2-1.3); CALC OSMOLALITY 278 mosm/kg (275-300); CALCIUM 8.5 mg/dL (8.5-10.1); CARBON DIOXIDE 23.2 mmol/L (21.0-32.0); CHLORIDE - SERUM 106 mmol/L (98-107); CREATININE - SERUM 0.9 mg/dL (0.6-1.3); GLUCOSE 100 mg/dL (74-106); POTASSIUM - SERUM 3.8 mmol/L (3.5-5.1); PROTEIN - SERUM 5.9 g/dL (6.4-8.2); SODIUM 139 mmol/L (136-145); UREA NITROGEN 16 mg/dL (7-18); eGFR NON AFRICAN AMERICAN 85 mL/min (90-120)
[2018-12-22 08:24] VITALS: BP 126/69
--- NOTE | 2018-12-22 09:41 | HP ---
PATIENT: DENTON COSTELLO MEDICAL RECORD: [id number] ACCOUNT: [id number] LOCATION:[facility] D.2119 : 31 ADMISSION DATE: 12/21/18 PCP: HAILEE BARRAGAN HISTORY AND PHYSICAL EXAMINATION DIAGNOSES: 1. Unstable angina. 2. Coronary artery disease. 3. Previous multivessel percutaneous transluminal coronary angioplasty and stent. 3. Chronic obstructive pulmonary disease. 4. Past smoking history. 5. Hyperlipidemia. 6. Mjz-owxmled-rbuzmtrhs diabetes. HISTORY OF PRESENT ILLNESS: Mr. Costello presents with increasing anginal symptomatology over the last week. He has a history of coronary artery disease, previous PTCA and stent. PHYSICAL EXAMINATION: GENERAL APPEARANCE: Well nourished, well developed, appears stated age. Level of distress, comfortable. PSYCHIATRIC: Mental status, alert, normal affect. Orientation, oriented to time, place and person. EYES: Lids and conjunctiva, noninjected. No discharge, no pallor. ENT: Lips, teeth, gums, normal dentition. Oropharynx, no cyanosis, no pallor. NECK: Carotid arteries, bilateral normal upstroke, no bruits, no thrills. JUGULAR VEINS: No jugular venous pressure or distention. CERVICAL LYMPH NODES: Nontender, nonenlarged. THYROID: Not enlarged. Nontender. No nodules. LUNGS: Respiratory effort, unlabored. CHEST: Normal curvature. No thoracic deformity. No chest wall tenderness. Percussion, resonant. Auscultation, clear. No wheezes, no rales, no rhonchi. CARDIOVASCULAR: Precordial exam, nondisplaced. No heaves or pericardial thrills. Rate and rhythm, regular. Heart sounds, normal S1, normal S2. No S3, no gallop, no rub. Systolic murmur, not heard. Diastolic murmur, not heard. EXTREMITIES: No cyanosis, no edema. Peripheral pulses, full and equal in all extremities, except as noted. No bruits appreciated. ABDOMEN: Soft, nondistended. Normal aorta. No bruit. Nontender. No masses. Liver, nontender, no hepatomegaly. Spleen, nontender, no splenomegaly. MUSCULOSKELETAL: No joint tenderness. No joint swelling. No erythema. NEUROLOGICAL: Normal gait, normal strength, normal tone. SKIN: Warm and dry. OVERALL IMPRESSION: Anginal symptomatology. We will proceed with coronary angiography. Further care depends upon findings of the angiography. TRANSINT:[id number] Voice Confirmation ID: [id number] DOCUMENT ID: [id number] HISTORY AND PHYSICAL [id number] DENTON COSTELLO JEFFREY MD at 0941 CC: [id number] DICTATION DATE: 12/22/18422 OVERAGE SHORTAGE AND DAMAGE CLERK: 12/22/18 0438 ADM IN [place] [address] [place] [address]
== END 2018-12-22 13:40 | disposition home or self-care (01) ==
LOC: D.ER 17:53 → D.M2 19:15 → OBSVTIME 19:15 → D.CLR 12-22 09:46
PROVIDERS: Family Medicine; ADMIT Internal Medicine Interventional Cardiology; ATTEND Internal Medicine Interventional Cardiology
DX: I25.110 Atherosclerotic heart disease of native coronary artery with unstable angina pectoris (principal); I10 Essential (primary) hypertension; E78.5 Hyperlipidemia, unspecified; I48.0 Paroxysmal atrial fibrillation

== ENCOUNTER 2019-05-13 07:08 | Outpatient (CLI) | payer MEDICARE, BC ==
[~2019-05-13] VITALS: Ht 170.2 cm; Wt 93.6 kg
--- NOTE | ~2019-05-13 | HEMODYNAMI ---
PATIENT:DENTON ZUÑIGA MEDICAL RECORD: [id number] : 31 LOCATION:DArielCAT ADMISSION DATE: 05/13/19 Generatedon:05/13/201910:31 Patient name: DENTON ZUÑIGA Patient #: [id number] SSN: : 1935 Date of study: 05/13/2019 Page: Of Hemodynamic Procedure Report Patient Data Patient Demographics Procedure consent was obtained First Name: DENTON Gender: Male Last Name: YOGESH : 1935 Middle Initial: E Age: 83 year(s) Patient #: [id number] Race: Additional ID: [id number] Contact details Address: [address] [place] [address] [facility] State: [place] City: [place] Zip code: [address] Past Medical History History of disease Date Diagnosis Comments CAD Allergies Allergen Reaction Date Comments Reported Penicillins 08/16/2014 Penicillins 10/16/2016 Penicillins 10/04/2017 Penicillins 04/14/2018 Other allergy 06/22/2018 PCN Penicillins 05/13/2019 Admission Admission Data Admission Date: 05/13/2019 Admission Time: 7:08 Arrival Date: 05/13/2019 Arrival Time: 0:00 Insurance Payor: Medicare HIC #: [id number] Height (in.): 68 BSA: 2.07 (m2) Height (cm.): 172.72 BMI: 31.32 (kg/m2) Weight (lbs.): 206 Weight (kg.): 93.44 Lab Results Lab Result Date: 05/13/2019 Lab Result Time: 0:00 Biochemistry Name Units Result Min Max BUN mg/dl 16 --(---*)-- 7 18 Creatinine mg/dl 0.9 --(-*--)-- 0.6 1.3 eGFR ml/min 85.40084 -*(----)-- 90 120 NONAFRICAN CBC Name Units Result Min Max Hematocrit % 40 -*(----)-- 42 54 Hemoglobin g/dl 13.4 -*(----)-- 13.5 17.5 Procedure Procedure Types Cath Procedure Diagnostic Procedure [facility] w/Coronaries Sedation Charges Moderate Sedation up to 30 minutes PCI Procedure Coronary Stent Coronary Stent Initial Procedure Description Procedure Date Procedure Date: 05/13/2019 Procedure Start Time: 9:43 Procedure End Time: 10:28 Procedure Staff Name Function Chin Carter MD Performing Physician Luis Armando Vallejo RN Nurse Candy Voss RT Scrub Abe Hitchcock RT Monitor Benjamin Ford RT Ibm Mainframe Systems Programmer Procedure Data Cath Procedure Fluoroscopy Diagnostic fluoroscopy Total fluoroscopy Time: 7 time: 7 min min Diagnostic fluoroscopy Total fluoroscopy dose: 851 dose: 851 mGy mGy Contrast Material Contrast Material Type Amount (ml) Isovue 300 91 Entry Location Entry Primary Successful Side Size Upsize Upsize Entry Closure Succes sful Closure Location (Fr) 1 (Fr) 2 (Fr) Remarks Device Remarks Femoral Right 5 Fr 6 Fr 6 Fr Exoseal artery Short Long Estimated blood loss: 10 ml Diagnostic catheters Device Type Used For End Catheter Placement MULTIPACK Pigtail 5 Fr Procedure catheter MULTIPACK JL 4.0 5Fr Procedure catheter MULTIPACK 3DRC 5Fr Procedure catheter Procedure Complications No complications Procedure Medications Medication Administration Route Dosage 0.9% NaCl I.V. 100 ml/hr Oxygen etCO2 Nasal cannula 2 l/min Heparin Flush Bag added to field 2 bags (1000units/500ml NS) Lidocaine 2% added to field 20 Versed I.V. 2 mg Fentanyl I.V. 100 mcg Versed I.V. 1 mg Heparin Bolus I.V. 4000 units Integrilin (Bolus I.V. 8.5 ml 2mg/ml) Integrilin (Bolus wasted 1.5 ml 2mg/ml) Versed I.V. 1 mg Plavix P.O. 600 mg Hemodynamics Rest BSA: 2.07 (m2) O2 Consumption: Estimated: 226.43 (ml/min) O2 Consumption indexed : Estimated:109.39 (ml/min/m) Heart Rate: 59 (bpm) Snapshots Pre Cath Intra NCS Post Cath Vital Signs Time Heart Resp SPO2 etCO2 NIBP (mmHg) Rhythm Pain Sedation Rate (ipm) (%) (mmHg) Status Level (bpm) 9:33:40 62 39 98 27.8 159/83(119) NSR 0 (11) 10(A) , No pain 9:38:02 63 16 98 30.1 154/80(122) NSR 0 (11) 10(A) , No pain 9:42:16 64 14 96 23.3 136/85(115) NSR 0 (11) 10(A) , No pain 9:46:32 65 17 98 20.3 135/85(114) NSR 0 (11) 10(A) , No pain 9:50:44 70 13 98 20.3 148/88(107) NSR 0 (11) 10(A) , No pain 9:55:06 69 14 98 29.3 123/83(108) NSR 0 (11) 10(A) , No pain 9:59:26 71 15 98 29.4 140/59(118) NSR 0 (11) 10(A) , No pain 10:03:42 60 16 98 30.9 136/77(106) NSR 0 (11) 10(A) , No pain 10:08:04 64 18 98 29.4 119/69(104) NSR 0 (11) 10(A) , No pain 10:13:09 85 15 98 29.4 160/85(123) NSR 0 (11) 10(A) , No pain 10:17:36 68 13 98 26.3 124/75(91) NSR 0 (11) 10(A) , No pain 10:21:45 72 15 100 27.1 143/88(114) NSR 0 (11) 10(A) , No pain 10:26:18 65 17 98 26.3 144/51(63) NSR 0 (11) 10(A) , No pain Medications Time Medication Route Dose Verified Delivered Reason Notes Effectiveness by by 9:30:30 0.9% NaCl I.V. 100 Luis Armando Luis Armando Per physician ml/hr Yoni Vallejo RN RN 9:30:40 Oxygen etCO2 2 Luis Armando Luis Armando for low 02 sats Nasal l/min Yoni Vallejo cannula RN RN 9:31:07 Heparin Flush added 2 Luis Armando Luis Armando used for Bag to bags Yoni Vallejo procedure (1000units/500ml field RN RN NS) 9:31:18 Lidocaine 2% added 20ml Luis Armando Luis Armando for local to vial Lorigan Yoni anesthetic field RN RN 9:43:37 Versed I.V. 2 mg Luis Armando Luis Armando for sedation Yoni Vallejo RN RN 9:43:48 Fentanyl I.V. 100 Luis Armando Luis Armando for sedation mcg Yoni Vallejo RN RN 10:03:00 Versed I.V. 1 mg Luis Armando Luis Armando for sedation Yoni Vallejo RN RN 10:12:12 Heparin Bolus I.V. 4000 Luis Armando Luis Armando for units Yoni Vallejo anticoagulation RN RN 10:12:47 Integrilin I.V. 8.5 Luis Armando Luis Armando for (Bolus 2mg/ml) ml Yoni Vallejo antiplatelet RN RN therapy 10:13:01 Integrilin wasted 1.5 Luis Armando Luis Armando to sharp's (Bolus 2mg/ml) ml Yoni Vallejo RN RN 10:18:42 Versed I.V. 1 mg Luis Armando Luis Armando for sedation Yoni Vallejo RN RN 10:27:44 Plavix P.O. 600 Luis Armando Luis Armando for mg Yoni Vallejo antiplatelet RN RN therapy Procedure Log Time Note 9:13:32 Signed procedure consent form obtained from patient. 9:13:34 Procedure Status Urgent Heart Cath (IP). 9:13:35 Time tracking: Regular hours (M-F 7:00 - 5:00) 9:13:38 Plan of Care:Hemodynamics will remain stable., Cardiac rhythm will remain stable., Comfort level will be maintained., Respiratory function will remain adequate., Patient/ family verbilizes understanding of procedure., Procedure tolerated without complication., Recovers from procedure without complications.. 9:13:55 Benjamin FELICIANO(R) sent for patient. Start room use. 9:15:38 H&P Date Dictated: 05/11/2019 Within 30 days and on chart., H&P Addendum completed by physician on day of procedure. (MUST COMPLETE FOR ALL OUTPATIENTS). 9:15:49 Patient allergic to Penicillins 9:15:59 Patient Weight : 206 lbs 9:16:03 Patient Height : 68 inches 9:16:15 Arrival Date: 05/13/2019 12:00:00 AM 9:16:34 Insurance Payor : Medicare 9:22:10 Patient received from Pre/Post Procedure Room to [facility] 1 Alert and oriented. Tansferred to table in Supine position. 9:22:11 Warm blankets applied, and sandy hugger turned on for patient comfort. 9:22:12 Correct patient and procedure confirmed by team. 9:22:12 ECG and BP/O2 sat monitors applied to patient. 9::29 Lab Result : BUN 16 mg/dl : Lab Result : eGFR NONAFRICAN 85.27363 ml/min 9:: Lab Result : Creatinine 0.9 mg/dl 9:: Lab Result : Hemoglobin 13.4 g/dl 9:: Lab Result : Hematocrit 40 % 9:30:30 0.9% NaCl 100 ml/hr I.V. was administered by Luis Armando Vallejo RN; Per physician; 9:30:40 Oxygen 2 l/min etCO2 Nasal cannula was administered by Luis Armando Vallejo RN; for low 02 sats; 9:31:07 Heparin Flush Bag (1000units/500ml NS) 2 bags added to field was administered by Luis Armando Vallejo RN; used for procedure; 9:31:18 Lidocaine 2% 20ml vial added to field was administered by Luis Armando Vallejo RN; for local anesthetic; 9:32:29 Vital chart was started 9:33:15 Baseline sample Acquired. 9:33:19 Rhythm: atrial fibrillation 9:33:20 Full Disclosure recording started 9:33:21 Pre-procedure instructions explained to patient. 9:33:21 Pre-op teaching completed and patient verbalized understanding. 9:33:30 Family in patients room. 9:33:32 Patient NPO since Breakfast. 9:33:35 Is patient on blood thinner?No 9:33:38 Is the patient allergic to Iodine/contrast media? No. 9:33:39 Patient diabetic? Yes. 9:33:40 If diabetic: On Metformin? Yes 9:33:42 If on Metformin: Last Dose? 05/11/2019 9:33:51 Previous problem with sedation/anesthesia? No ? 9:33:52 Snore? No 9:33:53 Sleep apnea? No 9:33:54 Deviated septum? No 9:34:00 Opens mouth fully? Yes 9:34:01 Sticks out tongue? Yes 9:34:05 Airway obstruction? No ? 9:34:07 Dentures? No ? 9:34:09 Pre procedure: right dorsailis pedis pulse 1+ Palpable, but thready & weak; easily obliterated 9:34:12 Patient pain scale 0/10 ?. 9:34:16 IV patent on arrival in right hand with 0.9% NaCl at KVO. 9:34:18 Lab results completed and on chart. 9:34:21 Right groin area was prepped with chlora-prep and draped in sterile fashion 9:34:22 Alarms reviewed by R. N. 9:34:22 Sharps counted by scrub and verified by R.N. 9:39:01 Zero performed for pressure channel P1 9:41:19 --------ALL STOP TIME OUT------ 9:41:19 Final Timeout: patient, procedure, and site verified with staff and physician. All members of the team are in agreement. 9:41:21 Right groin site verified by team. 9:41:25 Fire Safety Assessment: A--An alcohol-based skin anteseptic being used preoperatively., C--Open oxygen or nitrous oxide is being used., D--An ESU, laser, or fiber-optic light is being used. 9:41:29 Physical assessment completed. ASA score P 2 - A patient with mild systemic disease as per Chin Carter MD. 9:41:36 2) 60-89 Mildly reduced kidney function, and other findings (as for stage 1) point to kidney disease. 9:41:41 Maximum allowable contrast dose (3.7 X eGFR X 0.75)240 ml. 9:41:45 Sedation plan: IV Moderate Sedation Medication:Versed, Fentanyl 9:41:47 Use device set Femoral Dx 9:41:48 ACIST Syringe (73700) opened to sterile field. 9:41:49 Bag Decanter () opened to sterile field. 9:41:50 ACIST Hand Control (59835) opened to sterile field. 9:41:51 ACIST Manifold (58402) opened to sterile field. 9:41:52 Tegaderm 4 x 4 (1626W) opened to sterile field. 9:41:53 Medline Cath Pack ([id number]) opened to sterile field. 9:41:54 DIAGNOSTIC Multipack 5Fr catheter set (PO4674) opened to sterile field. 9:41:55 SHEATH 5FR [place] (GRH161) opened to sterile field. 9:41:55 EMERALD Guide Wire (385-337) opened to sterile field. 9:42:45 Procedure started. 9:43:04 Local anesthetic to right femoral artery with Lidocaine 2% by Chin Carter MD.INITIAL ACCESS ONLY 9:43:37 Versed 2 mg I.V. was administered by Luis Armando Vallejo RN; for sedation; 9:43:48 Fentanyl 100 mcg I.V. was administered by Luis Armando Vallejo RN; for sedation; 9:44:15 A 5 Fr sheath was inserted into the Right Femoral artery 9:44:54 A MULTIPACK Pigtail 5 Fr catheter was advanced over the wire and used for Procedure. 9:45:25 LV gram done using SHAHID 9:45:28 Injector settings: Ml/sec: 10, Volume: 20, 9:46:30 EF : 60 % 9:46:40 Catheter removed. 9:46:50 A MULTIPACK JL 4.0 5Fr catheter was advanced over the wire and used for Procedure. 9:48:09 LCA angiography performed. 9:48:10 Catheter removed. 9:48:53 A MULTIPACK 3DRC 5Fr catheter was advanced over the wire and used for Procedure. 9:49:31 RCA angiography performed. 9:49:32 Catheter removed. 9:49:56 SHEATH 6FR [place] (BRT041) opened to sterile field. 9:50:00 INFLATOR Merit BasixCompak (FM2143) opened to sterile field. 9:50:09 CHOICE PT Extra Support 182cm wire ([id number]) opened to sterile field. 9:51:25 GUIDE 6FR HS I SH catheter ([id number]) opened to sterile field. 9:51:33 Sheath upsized to a 6 Fr Short. 9:53:08 Zero performed for pressure channel P1 10:03:00 Versed 1 mg I.V. was administered by Luis Armando Vallejo RN; for sedation; 10:09:24 6 Fr HS1 SH guide catheter was inserted over the wire 10:09:35 Guide Catheter removed. unable to cannulate vessel. 10:10:42 SHEATH 6FR ARROW 45cm (CL-12058) opened to sterile field. 10:11:21 Sheath upsized to a 6 Fr Long. 10:11:35 GUIDE 6FR HS I SH catheter ([id number]) opened to sterile field. 10:11:44 6 Fr HS 1 SH guide catheter was inserted over the wire 10:12:12 Heparin Bolus 4000 units I.V. was administered by Luis Armando Vallejo RN; for anticoagulation; 10:12:47 Integrilin (Bolus 2mg/ml) 8.5 ml I.V. was administered by Luis Armando Vallejo RN; for antiplatelet therapy; 10:13:01 Integrilin (Bolus 2mg/ml) 1.5 ml wasted was administered by Luis Armando Vallejo RN; to sharp's; 10:14:45 CHOICE ES 182 wire advanced. 10:14:50 Wire advanced across lesion. 10:15:27 Pre PCI Site: [place] pRCA has 80-90% stenosis. 10:16:01 CHOICE PT Extra Support 182cm wire ([id number]) opened to sterile field. 10:16:50 CHOICE ES 182 WIRE ADVANCED A RAFAEL WIRE 10:17:38 The KRISTIAN RX 4.0 x 12 stent ([id number]) was advanced then removed because of failure to cross lesion 10:18:42 Versed 1 mg I.V. was administered by Luis Armando Vallejo RN; for sedation; 10:19:34 Inflate balloon Inflation number: 1 A EUPHORA 3.5 x 15 Balloon ([id number]) was prepped and advanced across the Prox RCA , then inflated to 19 TAMMY for 0:00 (min:sec) . 10:19:48 Balloon removed over the wire. 10:20:09 ACT drawn and resulted at 319 seconds. (normal therapeutic range 180-240 seconds). 10:20:53 Place stent Inflation Number: 2 A KRISTIAN RX 4.0 x 12 stent ([id number]) was prepped and advanced across the Prox RCA . The stent was deployed at 21 TAMMY for 0:00 (min:sec) . 10:21:13 Stent catheter was removed intact over wire. 10:21:14 Wire removed. 10:21:15 Guide catheter removed. 10:21:38 LONG SHEATH EXCHANGED FOR SHORT SHEATH 10:21:43 EXOSEAL 6Fr (EX600) opened to sterile field. 10:22:46 Sheath removed intact; hemostasis achieved with Exoseal to the Right Femoral artery. 10:24:22 Procedure ended.(Physican Out) 10:24:26 Fluoroscopy time 07.00 minutes. 10:24:31 Flurop Dose total: 851 10::31 Fluoroscopy dose: 851 mGy 10:24:43 Dose Area Product 28190 mGy/cm. 10:25:09 Contrast amount:Isovue 300 91ml. 10:25:13 Maximum allowable dose exceeded? No. 10:25:14 Sharps counted by scrub and verified by R.N. 10:25:16 Post-op/insertion site Right Femoral artery dressed using a 4 x 4 and Tegaderm. 10:25:19 Post-procedure physical assessment completed. ASA score P 2 - A patient with mild systemic disease as per Chin Carter MD. 10:25:30 Post procedure rhythm: unchanged. 10::44 Estimated blood loss: 10 ml 10::45 Post procedure instruction explained to patient.Patient verbalizes understanding. 10:25:45 Patient needs reinforcement of post procedure teaching. 10:26:36 Procedure type changed to Cath procedure, Diagnostic procedure, LHC, LHC w/Coronaries, Sedation Charges, Moderate Sedation up to 30 minutes, PCI procedure, Coronary Stent, Coronary Stent Initial 10:27:44 Plavix 600 mg P.O. was administered by Luis Armando Vallejo RN; for antiplatelet therapy; 10:28:24 Procedure and supply charges have been captured, reviewed, submitted and are correct. 10:28:27 Procedure Complication : No complications 10:28:28 Vital chart was stopped 10:28:29 See physician's report for complete and final results. 10:28:31 Report given to Pre/Post Procedure Room. 10:28:33 Patient transfered to Pre/Post Procedure Room with Bed. 10:28:35 Procedure ended. 10:28:35 Full Disclosure recording stopped 10:28:41 End room use (Document Last) Intervention Summary Intervention Notes Time ActionType Lesion and Equipment Used Action# Pressure Duration Attributes 10:17:38 Discard KRISTIAN RX 4.0 x Stent 12 stent ([id number]) 10:19:34 Inflate Prox RCA EUPHORA 3.5 x 1 19 00:00 balloon 15 Balloon ([id number]) 10:20:53 Place stent Prox RCA KRISTIAN RX 4.0 x 2 21 00:00 12 stent ([id number]) Device Usage Item Name Manufacture Quantity Catalog Number Hospital Part Current M inimal Lot# / Charge Number Stock Stock Serial# Code ACIST Syringe Acist 1 09082 896553 228112 339490 2 0 (13312) Medical Systems Inc Bag Decanter Microtek 1 2001S 208167 41429 305024 5 () Medical Inc. ACIST Hand Acist 1 83314 189771 743269 592188 5 Control Medical (45842) Systems Inc ACIST Manifold Acist 1 98646 722630 632541 083428 5 (19705) Medical Systems Inc Tegaderm 4 x 4 3M 1 1626W 538407 834845 331198 5 (1626W) Medline Cath Medline 1 [id number] 345838 25431 359945 5 Pack ([id number]) DIAGNOSTIC Cardinal 1 XR2083 097233 90328 559588 3 0 Multipack 5Fr Health catheter set (UI5461) SHEATH 5FR Terumo 1 HAK342 253434 836264 769316 5 [place] (JYK049) EMERALD Guide Cardinal 1 502-455 310360 296255 484989 5 Wire (502-455) Health MULTIPACK Cardinal 1 642733 5 Pigtail 5 Fr Health catheter MULTIPACK JL Cardinal 1 037603 5 4.0 5Fr Health catheter MULTIPACK 3DRC Cardinal 1 165683 5 5Fr catheter Health SHEATH 6FR Terumo 1 YMP179 286976 954518 396684 4 0 [place] (LPD329) INFLATOR Merit Merit 1 SZ1975 392303 048896 115232 1 5 Novel [facility] (WN1817) CHOICE PT [place] 2 [id number] 483389 716488 935346 5 Extra Support Scientific 182cm wire ([id number]) GUIDE 6FR HS I Medtronic 2 [id number] 561358 46786 389977 1 SH catheter ([id number]) SHEATH 6FR Teleflex 1 CL-69719 207092 723624 819336 5 ARROW 45cm (CL-75851) KRISTIAN RX 4.0 x Medtronic 1 [id number] 560649 3731732 064615 5 [id number] 12 stent ([id number]) EUPHORA 3.5 x Medtronic 1 [id number] 125844 643912 638109 5 [id number] 15 Balloon ([id number]) EXOSEAL 6Fr Cardinal 1 EX600 442586 824736 425267 1 0 (EX600) Health Signature Audit [place] Stage Time Signature Unsigned Intra-Procedure 05/13/2019 Candydenae Voss 10:31:55 AM RT(R) Signatures Performing Physician : Signature : Chin Carter MD Date : Time : Nurse : Luis Armando Lorigan Signature : RN Date : Time : Monitor : Abe Hitchcock RT Signature : Date : Time : [place] [address] [place] [address]
[2019-05-13] MEDS ORDERED: ISOSORBIDE MONO30 M1 PO (07:59)
[2019-05-13] MEDS ORDERED: SPIRIVA RESPIMAT4 G1 INH (08:00)
[2019-05-13] MEDS ORDERED: SINGULAIR10 MG PO (08:00)
[2019-05-13 08:17] VITALS: BP 148/71; Ht 170.2 cm; Wt 93.6 kg
[2019-05-13 08:44] LABS: BASOPHILS 0.9 % (0-2); EOSINOPHILS 1.8 % (0-7); HEMOGLOBIN 13.4 g/dL (13.5-17.5); IMMATURE GRANULOCYTES 0.4 % (0-5); LYMPHOCYTES 18.7 % (15-50); MCH 30.4 pg (26.0-34.0); MCHC 33.5 g/dL (31.0-37.0); MCV 90.7 fL (80.0-100.0); MEAN PLATELET VOLUME 9.9 fL (7.4-10.4); MONOCYTES 7.6 % (2-11); NEUTROPHILS 70.6 % (40-80); PLATELET COUNT 202 10x3/uL (130-400); RBC 4.41 10x6/uL (4.20-6.10); WBC 8.1 10x3/uL (4.8-10.8)
[2019-05-13 09:14] LABS: ALT (SGPT) 17 U/L (10-68); CALC OSMOLALITY 281 mosm/kg (275-300); CALCIUM 8.6 mg/dL (8.5-10.1); CARBON DIOXIDE 25.9 mmol/L (21.0-32.0); CHLORIDE - SERUM 109 mmol/L (98-107); CHOL - HDL RATIO 3.1 ratio (2.3-4.9); CHOLESTEROL, TOTAL 152 mg/dL (0-200); CREATININE - SERUM 0.9 mg/dL (0.6-1.3); GLUCOSE 106 mg/dL (74-106); HDL CHOLESTEROL 49 mg/dL (32-96); LDL CHOLESTEROL 87 mg/dL (0-100); LDL-HDL RATIO 1.8 ratio (1.5-3.5); POTASSIUM - SERUM 4.1 mmol/L (3.5-5.1); SODIUM 141 mmol/L (136-145); TRIGLYCERIDE 84 mg/dL (30-200); UREA NITROGEN 16 mg/dL (7-18); eGFR NON AFRICAN AMERICAN 85 mL/min (90-120)
[2019-05-13] MEDS ORDERED: PLAVIX75 MG PO (10:39)
--- NOTE | 2019-05-13 10:40 | NUR ---
PATIENT ARRIVED TO ROOM 5, PLACED ON CM. VSS ON 2L NC.
--- NOTE | 2019-05-13 10:55 | NUR ---
PATIENT RESTING, WAKES TO VERBAL STIMULI. PRESENT AT BEDSIDE. VSS ON 2L NC. RIGHT GROIN DRESSING IS CDI, NO S/S OF BLEEDING OR HEMATOMA. NO C/O PAIN, NUMBNESS, OR TINGLING. NO N/V. WILL CONTINUE TO MONITOR.
--- NOTE | 2019-05-13 11:25 | NUR ---
PATIENT RESTING, VSS ON 2L NC. PHYSICIAN PRESENT AT BEDSIDE TO UPDATE PATIENT AND FAMILY. RIGHT GROIN DRESSING IS INTACT, NO S/S OF HEMATOMA. SCANT AMOUNT OF BLEEDING NOTED ON DRESSING, CAROLYN ELIAS INFORMED THAT PATIENT HAD SMALL SKIN TEAR UNDER THE DRESSING, WILL CONTINUE TO MONITOR.
--- NOTE | 2019-05-13 11:55 | NUR ---
VSS ON 2L NC. NO C/O PAIN, NUMBNESS, OR TINGLING. RIGHT GROIN DRESSING HAS SMALL AMOUNT OF BLOOD FROM SKIN TEAR, NO S/S OF HEMATOMA. NO N/V. SPOUSE PRESENT AT BEDSIDE.
--- NOTE | 2019-05-13 12:25 | NUR ---
PATIENT INTERMITTENTLY RESTING, SMALL AMOUNT OF BLEEDING NOTED LIKELY FROM SKIN TEAR, PRESSURE HELD AT FEMORAL SITE FOR 8 MINUTES WITH NO FURTHER S/S OF BLEEDING. NO S/S OF HEMATOMA. VSS ON 1L NC. FAMILY AT BEDSIDE.
--- NOTE | 2019-05-13 12:55 | NUR ---
RIGHT GROIN DRESSING SHOWS NO FURTHER S/S OF BLEEDING OR HEMATOMA, CLEAN DRESSING APPLIED. VSS ON 1L NC. SPOUSE PRESENT AT BEDSIDE. NO C/O PAIN, NUMBNESS, OR TINGLING.
--- NOTE | 2019-05-13 13:25 | NUR ---
PATIENT AWAKE, VSS ON ROOM AIR. SPOUSE PRESENT AT BEDSIDE. RIGHT GROIN DRESSING IS CDI, NO S/S OF BLEEDING OR HEMATOMA. NO C/O PAIN, NUMBNESS, OR TINGLING. HEAD OF BED ELEVATED TO 30 DEGREES. PATIENT EATING FISH BROUGHT IN BY AND DRINKING SODA, NO N/V.
--- NOTE | 2019-05-13 13:55 | NUR ---
PATIENT AWAKE, HEAD OF BED ELEVATED TO 90 DEGREES. RIGHT GROIN DRESSING IS CDI, NO S/S OF BLEEDING OR HEMATOMA. NO C/O PAIN, NUMBNESS, OR TINGLING. VSS ON ROOM AIR. PERIPHERAL IV REMOVED. WRITTEN AND VERBAL DISCHARGE INSTRUCTIONS GIVEN TO PATIENT AND SPOUSE, BOTH VOICE UNDERSTANDING.
--- NOTE | 2019-05-13 14:25 | NUR ---
PATIENT VOIDED WITHOUT DIFFICULTY. RIGHT GROIN DRESSING IS CDI, NO S/S OF BLEEDING OR HEMATOMA, PATIENT GETTING DRESSED AT THIS TIME.
--- NOTE | 2019-05-13 14:30 | NUR ---
PATIENT TRANPSORTED VIA WHEELCHAIR TO CAR WITH SPOUSE DRIVING, ALL BELONGINGS WITH PATIENT.
--- NOTE | 2019-05-13 15:34 | OP ---
PATIENT NAME: DENTON ZUÑIGA MEDICAL RECORD: [id number] :31 LOCATION:D.CAT ADMISSION DATE: SURGEON: LUNA ESCOBAR MD DATE OF OPERATION: 05/13/2019 PROCEDURES: 1. PTCA and stent of RCA. 2. Left heart catheterization. 3. Selective coronary angiography. 4. Left ventriculogram. INDICATIONS: Unstable angina and coronary artery disease. PROCEDURE IN DETAIL: After informed consent was obtained and after a detailed explanation of risks, benefits as well as alternative therapies, the patient elected to proceed with angiogram and angioplasty. The right femoral area was prepped and draped in normal sterile fashion. Right femoral artery was cannulated via modified Seldinger technique with placement of 6-Kinyarwanda sheath. All catheters exchanged through this sheath. FINDINGS: Left ventriculogram was performed in standard 30-degree SHAHID view, reveals good cardiac wall motion and ejection fraction of 60%. SELECTIVE CORONARY ANGIOGRAPHY: 1. Left main is with no significant angiographic disease. 2. Left anterior descending has mild irregularities, no flow-limiting stenosis. Previously placed stents are widely patent. 3. Left circumflex has mild irregularities, but no flow-limiting stenosis. Previously placed stents are widely patent. 4. The right coronary has previously placed stents. There is 80% and 90% in-stent restenosis proximally. PTCA AND STENT OF THE RCA: The stent used was a 4.0 x 12-mm [place]. Result was 0% residual stenosis. OVERALL IMPRESSION: Successful PTCA and stent of the RCA going from 80% to 90% initial stenosis that was in-stent restenosis to 0% residual. TRANSINT:[id number] Voice Confirmation ID: [id number] DOCUMENT ID: [id number] LUNA ESCOBAR MD at 1534 CC: [id number] DICTATION DATE: 05/13/19 1030 NEWSPAPER INSERTER: 05/13/19 1231 DEP CLI 05/13/[address] [address]
== END 2019-05-13 14:30 ==
LOC: D.CATH 07:08
PROVIDERS: ATTEND Internal Medicine Interventional Cardiology
DX: I25.110 Atherosclerotic heart disease of native coronary artery with unstable angina pectoris (principal)
CPT/HCPCS: 93458; C9600

== ENCOUNTER 2019-06-23 23:34 | Observation (INO) | payer MEDICARE, BC ==
[~2019-06-23] VITALS: Ht 170.2 cm; Wt 92.3 kg
[~2019-06-23 23:34] MED LIST changes: +ISOSORBIDE MONO30 M1 PO; +SINGULAIR10 MG PO; +SPIRIVA RESPIMAT4 G1 INH
[2019-06-23 23:58] LABS: HEMATOCRIT 40.3 % (42.0-54.0); HEMOGLOBIN 13.2 g/dL (13.5-17.5); MCH 30.6 pg (26.0-34.0); MCHC 32.8 g/dL (31.0-37.0); MCV 93.3 fL (80.0-100.0); MEAN PLATELET VOLUME 8.9 fL (7.4-10.4); NEUTROPHILS 78.3 % (40-80); PLATELET COUNT 194 10x3/uL (130-400); RBC 4.32 10x6/uL (4.20-6.10); RDW 16.6 % (11.5-14.5); WBC 10.8 10x3/uL (4.8-10.8)
[2019-06-24 00:07] LABS: CALC OSMOLALITY 282 mosm/kg (275-300); CALCIUM 8.9 mg/dL (8.5-10.1); CARBON DIOXIDE 28.3 mmol/L (21.0-32.0); CHLORIDE - SERUM 103 mmol/L (98-107); CREATININE - SERUM 1.2 mg/dL (0.6-1.3); POTASSIUM - SERUM 4.1 mmol/L (3.5-5.1); SODIUM 136 mmol/L (136-145); UREA NITROGEN 29 mg/dL (7-18); eGFR NON AFRICAN AMERICAN 61 mL/min (90-120)
[2019-06-24 00:09] LABS: GLUCOSE 185 mg/dL (74-106)
[2019-06-24 00:24] LABS: ALBUMIN 2.8 g/dL (3.4-5.0); ALKALINE PHOSPHATASE 111 U/L (46-116); ALT (SGPT) 16 U/L (10-68); BILIRUBIN - TOTAL 0.45 mg/dL (0.2-1.3); CKMB 1.2 U/L (0.0-3.6); CREATINE KINASE 40 UL (21-232); MAGNESIUM - SERUM 1.9 mg/dL (1.8-2.4); PROTEIN - SERUM 6.3 g/dL (6.4-8.2)
[2019-06-24 00:25] LABS: TROPONIN-I < 0.017 ng/mL (0.000-0.060)
--- NOTE | 2019-06-24 00:34 | NUR ---
LACTIC ACID 2.6 CALLED FROM MICHELE HERRERA. EDP AND NURSE NOTIFIED.
[2019-06-24 01:29] VITALS: BP 126/68; BMI 31.8
--- NOTE | 2019-06-24 02:13 | NUR ---
PT IS ON Krikle AT THIS TIME. 74 SR.
[2019-06-24 04:00] VITALS: BP 124/75
[2019-06-24 04:48] LABS: APTT 26.6 SECONDS (22.8-39.4); INR 1.08 (0.85-1.17); PROTIME 13.5 SECONDS (11.6-15.0)
[2019-06-24 04:56] LABS: CALC OSMOLALITY 269 mosm/kg (275-300); CALCIUM 8.5 mg/dL (8.5-10.1); CARBON DIOXIDE 22.5 mmol/L (21.0-32.0); CHLORIDE - SERUM 104 mmol/L (98-107); CREATINE KINASE 47 UL (21-232); MAGNESIUM - SERUM 1.9 mg/dL (1.8-2.4); PHOSPHOROUS 3.4 mg/dL (2.5-4.9); POTASSIUM - SERUM 4.7 mmol/L (3.5-5.1); SODIUM 131 mmol/L (136-145); TROPONIN-I 0.021 ng/mL (0.000-0.060); UREA NITROGEN 27 mg/dL (7-18); eGFR NON AFRICAN AMERICAN 75 mL/min (90-120)
[2019-06-24 05:06] LABS: BASOPHILS 0.1 % (0-2); EOSINOPHILS 0.2 % (0-7); HEMOGLOBIN 12.3 g/dL (13.5-17.5); IMMATURE GRANULOCYTES 0.7 % (0-5); LYMPHOCYTES 14.3 % (15-50); MCH 30.8 pg (26.0-34.0); MCHC 33.2 g/dL (31.0-37.0); MCV 92.5 fL (80.0-100.0); MEAN PLATELET VOLUME 9.4 fL (7.4-10.4); MONOCYTES 7.9 % (2-11); NEUTROPHILS 76.8 % (40-80); PLATELET COUNT 199 10x3/uL (130-400); RDW 15.9 % (11.5-14.5); WBC 9.2 10x3/uL (4.8-10.8)
[2019-06-24 05:07] LABS: GLUCOSE 134 mg/dL (74-106)
--- NOTE | 2019-06-24 07:15 | NUR ---
RECIEVED PT IN BED AAOX4 RESP UNLABORED SKIN W/D DENIES ANY CHEST PAIN STATES DR ESCOBAR NEEDS TO HURRY UP I'M HUNGREY AND READY TO EAT
[2019-06-24 09:17] VITALS: BP 133/88
[2019-06-24 11:51] VITALS: Ht 170.2 cm; Wt 92.3 kg
[2019-06-24] MEDS ORDERED: ISOSORBIDE MONO30 M1 PO (11:52)
--- NOTE | 2019-06-24 12:05 | NUR ---
PT REFUSED MEDICATIONS HE IS BEING DISCHARGED HE STATES WILL TAKE MEDICATIONS WHEN HE GETS HOME
--- NOTE | 2019-06-24 13:30 | NUR ---
REVEIWED DISCHARGE INSTRUCTIONS WITH PT STATES UNDERSTANDING COPY GIVEN DCD SALINE LOCK TO RT WRIST WITH IV CATHETER INTACT SITE FREE OF REDNESS OR EDEMA PT DISCHARGED HOME IN STABLE CONDITION WITH ALL PERSONAL BELONGINGS LEFT UNIT VIA W/C
== END 2019-06-24 13:30 | disposition home or self-care (01) ==
LOC: D.ER 23:34 → D.M2 06-24 00:32 → OBSVTIME 06-24 00:35 → D.M2 06-24 13:30
PROVIDERS: Emergency Medicine; ADMIT Internal Medicine Nephrology; ATTEND Internal Medicine Nephrology
DX: I25.119 Atherosclerotic heart disease of native coronary artery with unspecified angina pectoris (principal); I10 Essential (primary) hypertension; E11.9 Type 2 diabetes mellitus without complications; D64.9 Anemia, unspecified; N17.9 Acute kidney failure, unspecified; E87.1 Hypo-osmolality and hyponatremia; E78.5 Hyperlipidemia, unspecified; J44.9 Chronic obstructive pulmonary disease, unspecified

== ENCOUNTER → 2019-07-01 13:47 | Outpatient (CLI) | payer MEDICARE, BC ==
[2019-06-24 11:51] VITALS: BMI 31.8
[~2019-07-01 13:47] MED LIST changes: +ELIQUIS5 MG PO
== END | disposition home or self-care (01) ==
LOC: D.HCCECHO 13:47
PROVIDERS: ATTEND Internal Medicine Interventional Cardiology
DX: I25.10 Atherosclerotic heart disease of native coronary artery without angina pectoris (principal)

== ENCOUNTER 2019-07-01 19:44 | Inpatient (IN) | payer MEDICARE, BC ==
[~2019-07-01] VITALS: Ht 170.2 cm; Wt 104.5 kg
[~2019-07-01 19:44] MED LIST changes: -ELIQUIS5 MG PO
[2019-07-01 20:29] LABS: BASOPHILS 0.4 % (0-2); EOSINOPHILS 0.2 % (0-7); HEMATOCRIT 39.9 % (42.0-54.0); HEMOGLOBIN 12.8 g/dL (13.5-17.5); IMMATURE GRANULOCYTES 0.5 % (0-5); LYMPHOCYTES 14.9 % (15-50); MCHC 32.1 g/dL (31.0-37.0); MCV 96.6 fL (80.0-100.0); MEAN PLATELET VOLUME 9.2 fL (7.4-10.4); MONOCYTES 8.7 % (2-11); NEUTROPHILS 75.3 % (40-80); PLATELET COUNT 204 10x3/uL (130-400); RBC 4.13 10x6/uL (4.20-6.10); RDW 16.7 % (11.5-14.5); WBC 10.3 10x3/uL (4.8-10.8)
--- NOTE | 2019-07-01 20:33 | NUR ---
ULTRASOUND TO BEDSIDE.
[2019-07-01 20:39] LABS: CALC OSMOLALITY 280 mosm/kg (275-300); CALCIUM 8.7 mg/dL (8.5-10.1); CARBON DIOXIDE 25.5 mmol/L (21.0-32.0); CHLORIDE - SERUM 106 mmol/L (98-107); GLUCOSE 107 mg/dL (74-106); POTASSIUM - SERUM 4.2 mmol/L (3.5-5.1); SODIUM 140 mmol/L (136-145); UREA NITROGEN 19 mg/dL (7-18); eGFR NON AFRICAN AMERICAN 75 mL/min (90-120)
[2019-07-01 20:44] LABS: ALBUMIN 2.8 g/dL (3.4-5.0); ALKALINE PHOSPHATASE 99 U/L (46-116); ALT (SGPT) 25 U/L (10-68); BILIRUBIN - TOTAL 0.47 mg/dL (0.2-1.3); PROTEIN - SERUM 6.1 g/dL (6.4-8.2)
--- NOTE | 2019-07-01 20:48 | NUR ---
PT IN WITH C/O OF PAIN AND REDNESS TO RIGHT LOWER THIGH, NO EDEMA AT THIS TIME. DENIES INJURY, SIGHT IS WARM TO THE TOUCH, PULSES EQUAL.
[2019-07-01 21:04] VITALS: BP 118/69
[2019-07-01 22:00] VITALS: BP 116/67
--- NOTE | 2019-07-01 23:00 | NUR ---
RECEIVED PT FROM ER VIA DOVCHER WITH AND STAFF. A/O WITH NO SIGNS OF ACUTE DISTRESS. IV TO THE FOREARM WITH NO REDNESS OR SWELLING NOTED. SWELLING NOTED TO THE JULIOCESAR FEET. REDNESS NOTED TO THE RT LEG AND MASS PALP TO THE RT INNDER THIGH. DENIES NO OTHER NEEDS AT THIS TIME. CONTINE WITH PLAN OF CARE.
[2019-07-01 23:33] VITALS: BP 136/71; Ht 170.2 cm; Wt 104.5 kg
[2019-07-02 01:05] VITALS: BP 136/71
[2019-07-02 05:16] VITALS: BP 114/78
[2019-07-02 06:32] LABS: BASOPHILS 0.2 % (0-2); EOSINOPHILS 0.5 % (0-7); HEMATOCRIT 38.2 % (42.0-54.0); HEMOGLOBIN 12.2 g/dL (13.5-17.5); IMMATURE GRANULOCYTES 0.5 % (0-5); LYMPHOCYTES 19.6 % (15-50); MCH 30.5 pg (26.0-34.0); MCHC 31.9 g/dL (31.0-37.0); MCV 95.5 fL (80.0-100.0); MEAN PLATELET VOLUME 9.3 fL (7.4-10.4); MONOCYTES 7.4 % (2-11); NEUTROPHILS 71.8 % (40-80); PLATELET COUNT 221 10x3/uL (130-400); RDW 16.7 % (11.5-14.5); WBC 8.5 10x3/uL (4.8-10.8)
[2019-07-02 06:47] LABS: INR 1.1 (0.85-1.17); PROTIME 13.7 SECONDS (11.6-15.0)
[2019-07-02 06:48] LABS: APTT 31.5 SECONDS (22.8-39.4)
[2019-07-02 07:04] LABS: CALC OSMOLALITY 282 mosm/kg (275-300); CALCIUM 8.5 mg/dL (8.5-10.1); CARBON DIOXIDE 25.2 mmol/L (21.0-32.0); CHLORIDE - SERUM 107 mmol/L (98-107); CREATININE - SERUM 0.9 mg/dL (0.6-1.3); GLUCOSE 111 mg/dL (74-106); MAGNESIUM - SERUM 1.8 mg/dL (1.8-2.4); PHOSPHOROUS 2.9 mg/dL (2.5-4.9); SODIUM 141 mmol/L (136-145); UREA NITROGEN 14 mg/dL (7-18); eGFR NON AFRICAN AMERICAN 85 mL/min (90-120)
[2019-07-02 07:56] VITALS: BP 126/76
[2019-07-02 19:30] VITALS: BP 134/77
--- NOTE | 2019-07-02 19:45 | NUR ---
LYING IN BED. ALERT AND ORIENTED X4. FORGETFUL. RESP EVEN AND NONLABORED. BRUISES NOTED TO BUE. BUE SKIN IS THIN, FRAGILE. RT THIGH IS RED, WARM TO TOUCH AND RATES PAIN 4. PEDAL PULSES STRONG BILAT. 1+ EDEMA NOTED TO RLE. TELEMETRY SHOWS SR WITH RATE OF 77. REPORTS PROD COUGH WITH WHITE SPUTUM. SALINE LOCK NOTED TO RT HAND. [place]. TRACEY ALARM IN USE FOR PT SAFETY. SR ELEVATED X2. CL IN REACH.
[2019-07-03 00:30] VITALS: BP 131/77
--- NOTE | 2019-07-03 01:21 | NUR ---
ASSISTED UP TO BR TO VOID. FORGOT TO USE CALL LIGHT AND BED ALARM ACTIVATED. GAIT IS UNSTEADY. ENCOURAGED USE OF CALL SOARES FOR ASSISTANCE. TRACEY ALARM AND BED ALARM ON. CL IN REACH.
[2019-07-03 04:30] VITALS: BP 147/88
[2019-07-03 05:55] LABS: BASOPHILS 0.5 % (0-2); EOSINOPHILS 0.8 % (0-7); HEMATOCRIT 38.6 % (42.0-54.0); HEMOGLOBIN 12.4 g/dL (13.5-17.5); IMMATURE GRANULOCYTES 0.4 % (0-5); LYMPHOCYTES 19.9 % (15-50); MCH 30.6 pg (26.0-34.0); MCHC 32.1 g/dL (31.0-37.0); MCV 95.3 fL (80.0-100.0); MEAN PLATELET VOLUME 9.4 fL (7.4-10.4); MONOCYTES 8.9 % (2-11); NEUTROPHILS 69.5 % (40-80); PLATELET COUNT 202 10x3/uL (130-400); RBC 4.05 10x6/uL (4.20-6.10); RDW 16.8 % (11.5-14.5); WBC 7.5 10x3/uL (4.8-10.8)
[2019-07-03 06:06] LABS: CALC OSMOLALITY 281 mosm/kg (275-300); CALCIUM 8.7 mg/dL (8.5-10.1); CARBON DIOXIDE 25.6 mmol/L (21.0-32.0); CHLORIDE - SERUM 108 mmol/L (98-107); CREATININE - SERUM 0.9 mg/dL (0.6-1.3); GLUCOSE 99 mg/dL (74-106); MAGNESIUM - SERUM 1.9 mg/dL (1.8-2.4); PHOSPHOROUS 3.5 mg/dL (2.5-4.9); SODIUM 141 mmol/L (136-145); UREA NITROGEN 14 mg/dL (7-18); eGFR NON AFRICAN AMERICAN 85 mL/min (90-120)
[2019-07-03 08:10] VITALS: BP 139/71
[2019-07-03 12:11] VITALS: BP 127/72
[2019-07-03 19:30] VITALS: BP 110/53
--- NOTE | 2019-07-03 22:11 | NUR ---
A/O WITH NO SIGNS OF ACUTE DISTRESS. IV TO THE RIGHT WRIST WITH NO REDNESS OR SWELLING. TRACEY ALARM ON WITH AT BEDSIDE. DENIES NO NEEDS AT THIS TIME. CONTINUE PLAN OF CARE.
--- NOTE | 2019-07-03 23:32 | NUR ---
A/O WITH NO SIGNS OF ACUTE DISTRESS. IV TO THE RT WRIST WITH NO REDNESS OR SWELLING. BRUISES NOTED TO THE JULIOCESAR LEGS AND ARMS. DENIES NO NEEDS AT THIS TIME. CONTINUE PLAN OF CARE.
[2019-07-04 00:30] VITALS: BP 115/62
[2019-07-04 04:00] VITALS: BP 135/80
--- NOTE | 2019-07-04 06:35 | NUR ---
REFUSED AM LAB DRAW AFTER TWO FAILED ATTEMPTS. STATED THAT HE WAS GOING HOME TODAY AND DOES NOT NEED IT. WILL CONTINUE WITH PLAN OF CARE.
--- NOTE | 2019-07-04 07:30 | NUR ---
PT RESTING IN BED WITH EYES OPEN ALERT AND ORIENTED WITH NO S/S OF DISTRESS. IV LOCATED RIGHT HAND CURRENTLY SL. DENIES NEEDS AT THIS TIME, WILL CONT TO MONITOR.
[2019-07-04 08:29] VITALS: BP 148/113
--- NOTE | 2019-07-04 11:30 | NUR ---
FSBS 127, NO TREATMENT NEEDED AT THIS TIME.
--- NOTE | 2019-07-04 12:20 | MORECARE ---
CASE MANAGEMENT DISCHARGE SUMMARY PATIENT: DENTON ZUÑIGA UNIT: [id number] ADM DATE: 07/02/19 AGE: 83 : 31 SEX: M ROOM/BED: D.2239 AUTHOR: VIRGIL SCHUSTER PHYSICIAN: REFERRING PHYSICIAN: MARIIA MOHAN DO DATE OF SERVICE: 07/04/19 Discharge Plan Patient Name: DENTON ZUÑIGA [facility] 1935 Planned Disposition: Home Anticipated Discharge Date: 07/04/19 Discharge Date: Expected LOS: 2 Initial Reviewer: [email or web address] Initial Review Date: 07/04/2019 Generated: 07/04/19 1:20 pm DCPIA - Discharge Planning Initial Assessment Updated by [email or web address]: Marcia Nelson on 07/04/19 12:19 pm * Is the patient Alert and Oriented? Yes * How many steps to enter\exit or inside your home? 0/0 * PCP Dr. Bauer * Pharmacy [facility] * Preadmission Environment Home with Family * ADLs Partial Dependent * Partial ADLs (Assistance needed) Ambulation * Equipment Other Oxygen Walker * Other Equipment Electric wheelchair Portable oxygen * Verbal permission to speak to the caregivers and representatives has been obtained from the patient. Yes * Community resources currently utilized Other * Please name any agencies selected above. DME company for oxygen is unknown in [place] * Additional services required to return to the preadmission environment? No * Can the patient safely return to the preadmission environment? Yes * Has this patient been hospitalized within the prior 30 days at any hospital? No Patient Name: DENTON ZUÑIGA Page 41186 at 1220 All edits/amendments must be made on the electronic document DICTATION DATE: 07/04/19 1220 EDUCATION REVIEWER: ALBERTO 07/04/19 1220 RPT#: [id number] DC DATE: STATUS: ADM IN [facility] [address] [place] [address] END OF REPORT
--- NOTE | 2019-07-04 12:29 | MORECARE ---
CASE MANAGEMENT DISCHARGE SUMMARY PATIENT: DENTON ZUÑIGA UNIT: [id number] ADM DATE: 07/02/19 AGE: 83 : 33 SEX: M ROOM/BED: D.2239 AUTHOR: VIRIGL SCHUSTER PHYSICIAN: REFERRING PHYSICIAN: MARIIA MOHAN DO DATE OF SERVICE: 07/04/19 Discharge Plan Patient Name: DENTON ZUÑIGA Facility: [facility]:[place] : 1935 Planned Disposition: Home Anticipated Discharge Date: 07/04/19 Discharge Date: Expected LOS: 2 Initial Reviewer: [email or web address] Initial Review Date: 07/04/2019 Generated: 07/04/19 1:29 pm Comments DCP- Discharge Planning Updated by [email or web address]: Marcia Nelson on 07/04/19 11:[address] Patient Name: DENTON ZUÑIGA Admission Status: ER Accout number: [id number] Admission Date: 07-02-2019 : 1935 Admission Diagnosis: Attending: MARIIA MOHAN Current LOS: 2 Anticipated DC Date: 07-04-2019 Planned Disposition: Home Primary Insurance: MEDICARE A & B Discharge Planning Comments: CM met with patient to complete initial dc planning assessment. CM educated patient on the CM role and verbal consent given by patient to complete assessment. Patient lives at home with his . At discharge patient plans to return and feels this is a safe discharge. CM discussed availability of home health, rehab services, and medical equipment. Patient denied known discharge needs at this time. His is present in the room and declines home health or DME needs. CM will continue to follow and will assist as needed with dc plans/needs. Hand Cigar Making Supervisor: Marcia Nelson DCPIA - Discharge Planning Initial Assessment Updated by [email or web address]: Marcia Nelson on 07/04/19 12:19 pm * Is the patient Alert and Oriented? Yes * How many steps to enter\exit or inside your home? 0/0 * PCP Dr. Bauer * Pharmacy [facility] * Preadmission Environment Home with Family * ADLs Partial Dependent * Partial ADLs (Assistance needed) Ambulation * Equipment Other Oxygen Walker * Other Equipment Electric wheelchair Portable oxygen * Verbal permission to speak to the caregivers and representatives has been obtained from the patient. Yes * Community resources currently utilized Other * Please name any agencies selected above. DME company for oxygen is unknown in [place] * Additional services required to return to the preadmission environment? No * Can the patient safely return to the preadmission environment? Yes * Has this patient been hospitalized within the prior 30 days at any hospital? No Last DP export: 07/04/19 11:20 a Patient Name: DENTON ZUÑIGA Page [id number] at 1229 All edits/amendments must be made on the electronic document DICTATION DATE: 07/04/19 1229 CLINICAL LABORATORY AIDE: ALBERTO 07/04/19 1229 RPT#: [id number] DC DATE: STATUS: ADM IN [facility] [address] [place] [address] END OF REPORT
--- NOTE | 2019-07-04 12:55 | NUR ---
RESTING IN BED WITH AT THE BEDSIDE. NO S/S OF DISTRESS AT THIS TIME, WILL CONT TO MONITOR.
[2019-07-04 13:00] VITALS: BP 103/65
[2019-07-04] MEDS ORDERED: ELIQUIS5 MG PO (13:52)
--- NOTE | 2019-07-04 14:49 | MORECARE ---
CASE MANAGEMENT DISCHARGE SUMMARY PATIENT: DENTON ZUÑIGA UNIT: [id number] ADM DATE: 07/02/19 AGE: 83 : 33 SEX: M ROOM/BED: D.2239 AUTHOR: VIRGIL SCHUSTER PHYSICIAN: REFERRING PHYSICIAN: MARIIA MOHAN DO DATE OF SERVICE: 07/04/19 Discharge Plan Patient Name: DENTON ZUÑIGA Facility: [facility]:[place] : 1935 Planned Disposition: Home Anticipated Discharge Date: 07/04/19 Discharge Date: Expected LOS: 2 Initial Reviewer: [email or web address] Initial Review Date: 07/04/2019 Generated: 07/04/19 3:49 pm Comments DCP- Discharge Planning Updated by [email or web address]: Marcia Nelson on 07/04/19 1:[address] Patient Name: DENTON ZUÑIGA Encounter No: [id number] : 1935 Primary Insurance: MEDICARE A & B Anticipated DC Date: 07-04-2019 Planned Disposition: Home External Planned Provider: : DCP follow-up note: Patient and family in agreement with discharge plan. No changes to plan. Case management will follow and assist as needed. Marcia Nelson DCP- Discharge Planning Updated by [email or web address]: Marcia Nelson on 07/04/19 11:[address] Patient Name: DENTON ZUÑIGA Admission Status: ER Accout number: [id number] Admission Date: 07-02-2019 : 1935 Admission Diagnosis: Attending: MARIIA MOHAN Current LOS: 2 Anticipated DC Date: 07-04-2019 Planned Disposition: Home Primary Insurance: MEDICARE A & B Discharge Planning Comments: CM met with patient to complete initial dc planning assessment. CM educated patient on the CM role and verbal consent given by patient to complete assessment. Patient lives at home with his . At discharge patient plans to return and feels this is a safe discharge. CM discussed availability of home health, rehab services, and medical equipment. Patient denied known discharge needs at this time. His is present in the room and declines home health or DME needs. CM will continue to follow and will assist as needed with dc plans/needs. Restaurant Shift Leader: Marcia Nelson DCPIA - Discharge Planning Initial Assessment Updated by [email or web address]: Marcia Nelson on 07/04/19 12:19 pm * Is the patient Alert and Oriented? Yes * How many steps to enter\exit or inside your home? 0/0 * PCP Dr. 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 Yes * Community resources currently utilized Other * Please name any agencies selected above. DME company for oxygen is unknown in [place] * Additional services required to return to the preadmission environment? No * Can the patient safely return to the preadmission environment? Yes * Has this patient been hospitalized within the prior 30 days at any hospital? No Last DP export: 07/04/19 11:29 a Patient Name: DENTON ZUÑIGA Page [id number] at 1449 All edits/amendments must be made on the electronic document DICTATION DATE: 07/04/19 144 FLAME CUTTING SUPERVISOR: ALBERTO 07/04/19 1449 RPT#: [id number] [place] DATE: STATUS: ADM IN [facility] [address] [place] [address] END OF REPORT
[2019-07-04 15:45] VITALS: BP 91/50
--- NOTE | 2019-07-04 16:32 | NUR ---
IV CATH REMOVED WITH TIP INTACT. DC`D HOME VIA WHEELCHAIR WITH .
--- NOTE | 2019-07-06 14:07 | EC ---
PATIENT:DENTON ZUÑIGA DATE OF SERVICE: 07/01/19 SEX: M MEDICAL RECORD: [id number] DATE OF : 31 LOCATION:[facility] AGE OF PATIENT: 83 ADMISSION DATE: 07/02/19 REFERRING PHYSICIAN: INTERPRETING PHYSICIAN: LUNA ESCOBAR MD ECHOCARDIOGRAM REPORT ECHO CHARGES Date: CLINICAL DIAGNOSIS: ECHOCARDIOGRAPHIC MEASUREMENTS (adult normal given) AC root (d.<3.7cm) cm LV Septum d (<1.2 cm> cm Valve Excursion cm LV Septum (systole) cm Left Atria (s.<4.0cm> cm LVPW d(<1.2cm) cm RV (d.<2.3cm) cm LVPW (sytole) cm LV diastole(<5.6CM) cm MV E-F(>70mm/sec) cm LV systole cm LVOT Diameter cm MV exc.(>10mm) cm Est.ejection fraction (50-75%) % DOPPLER: LVIT cm/sec A cm/sec E cm/sec LA cm/sec RVSP mmHg LVOT cm/sec AOP1/2T m/s Asc. Ao cm/sec RVOT cm/sec RA cm/sec PA cm/sec AV Gradient Peak mmHg AV Mean mmHg AV Area cm MV Gradient Peak mmHg MV Mean mmHg MV Area cm COMMENTS: Berry Picker: Injection Molder: RAFA# Pericardial Effusion DATE OF SERVICE: ECHOCARDIOGRAM FINDINGS: 1. Left ventricular chamber size is within normal limits. Left ventricular systolic function is normal. Overall ejection fraction estimated at 55%. 2. Left atrium, right atrium, and right ventricle chamber size is within normal limits. 3. Valvular structures have normal structure and motion. ECHOCARDIOGRAM REPORT [id number] DENTON ZUÑIGA 4. 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 No other valvular insufficiency or stenosis. 5. No evidence of pericardial effusion or left ventricular thrombus. TRANSINT:[id number] Voice Confirmation ID: [id number] DOCUMENT ID: [id number] LUNA ESCOBAR MD at 1407 CC: [id number] DICTATION DATE: 07/02/19 1137 CLAIMS MANAGER: 07/02/19 1215 DIS IN 07/04/19 [place] [address]
--- NOTE | 2019-07-07 09:38 | MORECARE ---
CASE MANAGEMENT DISCHARGE SUMMARY PATIENT: DENTON ZUÑIGA UNIT: [id number] ADM DATE: 07/02/19 AGE: 83 : 31 SEX: M ROOM/BED: D.2239 AUTHOR: VIRGIL SCHUSTER PHYSICIAN: REFERRING PHYSICIAN: MARIIA MOHAN DO DATE OF SERVICE: 07/07/19 Discharge Plan Patient Name: DENTON ZUÑIGA Facility: [facility]:[place] : 1935 Planned Disposition: Home Anticipated Discharge Date: 07/04/19 Discharge Date: 07/04/2019 Expected LOS: 2 Initial Reviewer: [email or web address] Initial Review Date: 07/04/2019 Generated: 07/07/19 10:37 am Comments DCP- Discharge Planning Updated by [email or web address]: Marcia Nelson on 07/04/19 1:[address] Patient Name: DENTON ZUÑIGA Encounter No: [id number] : 1935 Primary Insurance: MEDICARE A & B Anticipated DC Date: 07-04-2019 Planned Disposition: Home External Planned Provider: : DCP follow-up note: Patient and family in agreement with discharge plan. No changes to plan. Case management will follow and assist as needed. Marcia Nelson DCP- Discharge Planning Updated by [email or web address]: Marcia Nelson on 07/04/19 11:[address] Patient Name: DENTON ZUÑIGA Admission Status: ER Accout number: [id number] Admission Date: 07-02-2019 : 1935 Admission Diagnosis: Attending: MARIIA MOHAN Current LOS: 2 Anticipated DC Date: 07-04-2019 Planned Disposition: Home Primary Insurance: MEDICARE A & B Discharge Planning Comments: CM met with patient to complete initial dc planning assessment. CM educated patient on the CM role and verbal consent given by patient to complete assessment. Patient lives at home with his . At discharge patient plans to return and feels this is a safe discharge. CM discussed availability of home health, rehab services, and medical equipment. Patient denied known discharge needs at this time. His is present in the room and declines home health or DME needs. CM will continue to follow and will assist as needed with dc plans/needs. Vehicle Service Agent: Marcia Nelson DCPIA - Discharge Planning Initial Assessment Updated by [email or web address]: Marcia Leslie on 07/04/19 12:19 pm * Is the patient Alert and Oriented? Yes * How many steps to enter\exit or inside your home? 0/0 * PCP Dr. Bauer * [facility]acy [facility] * Preadmission Environment Home with Family * ADLs Partial Dependent * Partial ADLs (Assistance needed) Ambulation * Equipment Other Oxygen Walker * Other Equipment Electric wheelchair Portable oxygen * Verbal permission to speak to the caregivers and representatives has been obtained from the patient. Yes * Community resources currently utilized Other * Please name any agencies selected above. DME company for oxygen is unknown in [place] * Additional services required to return to the preadmission environment? No * Can the patient safely return to the preadmission environment? Yes * Has this patient been hospitalized within the prior 30 days at any hospital? No Last DP export: 07/04/19 1:49 p Patient Name: DENTON ZUÑIGA Page [id number] at 0938 All edits/amendments must be made on the electronic document DICTATION DATE: 07/07/19936 SODA TESTER: ALBERTO 07/07/19936 RPT#: [id number] DC DATE:07/04/19 STATUS: DIS IN [facility] [address] [place] [address] END OF REPORT
== END 2019-07-04 16:33 | disposition home or self-care (01) | DRG 300 ==
LOC: D.ER 19:44 → OBSVTIME 21:59 → D.MS 21:59
PROVIDERS: Family Medicine; ADMIT Family Medicine; ATTEND Family Medicine
DX: I80.01 Phlebitis and thrombophlebitis of superficial vessels of right lower extremity (principal); I82.4Z1 Acute embolism and thrombosis of unspecified deep veins of right distal lower extremity; I10 Essential (primary) hypertension; E78.5 Hyperlipidemia, unspecified; I25.10 Atherosclerotic heart disease of native coronary artery without angina pectoris; E11.51 Type 2 diabetes mellitus with diabetic peripheral angiopathy without gangrene; J44.9 Chronic obstructive pulmonary disease, unspecified; K21.9 Gastro-esophageal reflux disease without esophagitis; N40.0 Benign prostatic hyperplasia without lower urinary tract symptoms; M19.90 Unspecified osteoarthritis, unspecified site; M54.9 Dorsalgia, unspecified; M48.061 Spinal stenosis, lumbar region without neurogenic claudication; M54.16 Radiculopathy, lumbar region; D64.9 Anemia, unspecified

== ENCOUNTER 2019-08-11 05:52 | Emergency (ER) | payer MEDICARE, BC ==
[~2019-08-11] VITALS: Ht 170.2 cm; Wt 91.4 kg
[~2019-08-11 05:52] MED LIST changes: +ELIQUIS5 MG PO
[2019-08-11 05:58] VITALS: Ht 170.2 cm; Wt 91.4 kg
[2019-08-11 07:15] LABS: BASOPHILS 0.5 % (0-2); EOSINOPHILS 1.5 % (0-7); HEMATOCRIT 38.7 % (42.0-54.0); HEMOGLOBIN 12.5 g/dL (13.5-17.5); IMMATURE GRANULOCYTES 0.4 % (0-5); MCH 30.9 pg (26.0-34.0); MCHC 32.3 g/dL (31.0-37.0); MCV 95.6 fL (80.0-100.0); MEAN PLATELET VOLUME 9.5 fL (7.4-10.4); MONOCYTES 8.5 % (2-11); NEUTROPHILS 68.1 % (40-80); PLATELET COUNT 226 10x3/uL (130-400); RBC 4.05 10x6/uL (4.20-6.10); RDW 16.2 % (11.5-14.5); WBC 8.1 10x3/uL (4.8-10.8)
[2019-08-11 07:29] LABS: CALC OSMOLALITY 279 mosm/kg (275-300); CALCIUM 9.1 mg/dL (8.5-10.1); CARBON DIOXIDE 25.2 mmol/L (21.0-32.0); CHLORIDE - SERUM 107 mmol/L (98-107); CREATININE - SERUM 0.8 mg/dL (0.6-1.3); GLUCOSE 105 mg/dL (74-106); POTASSIUM - SERUM 4.4 mmol/L (3.5-5.1); SODIUM 139 mmol/L (136-145); UREA NITROGEN 17 mg/dL (7-18); eGFR NON AFRICAN AMERICAN > 90 mL/min (90-120)
[2019-08-11 07:42] LABS: ALBUMIN 2.6 g/dL (3.4-5.0); ALKALINE PHOSPHATASE 107 U/L (46-116); ALT (SGPT) 20 U/L (10-68); BILIRUBIN - TOTAL 0.41 mg/dL (0.2-1.3); PRO BNP 261 pg/mL (0-450); PROTEIN - SERUM 5.6 g/dL (6.4-8.2)
[2019-08-11 07:44] LABS: C-REACTIVE PROTEIN < 0.2 mg/dL (0.0-0.9); TROPONIN-I < 0.017 ng/mL (0.000-0.060)
[2019-08-11 09:18] VITALS: BP 133/79
== END 2019-08-11 09:13 | disposition home or self-care (01) ==
LOC: D.ER 05:52
PROVIDERS: Family Medicine
DX: M79.662 Pain in left lower leg (principal); Z86.718 Personal history of other venous thrombosis and embolism; E11.9 Type 2 diabetes mellitus without complications; I10 Essential (primary) hypertension; I25.10 Atherosclerotic heart disease of native coronary artery without angina pectoris; J44.9 Chronic obstructive pulmonary disease, unspecified; Z99.81 Dependence on supplemental oxygen; I73.9 Peripheral vascular disease, unspecified